=== PATIENT | female | born 1940 | race Caucasian/White ===

== ENCOUNTER → 2018-01-06 13:18 | Outpatient (CLI) | payer MEDICARE, SELFPAY ==
--- NOTE | 2018-01-06 13:22 | HPBI_ITS ---
MAMMOGRAPHY - BILATERAL SCREENING REASON FOR EXAM: Female, 77 years old. Routine annual screening examination. PERTINENT HISTORY: Non-contributory. TECHNIQUE: Digital bilateral breast emanuel (3D mammographic acquisition) in the CC and MLO projections. 2-D mediolateral oblique (MLO) and craniocaudad (CC) views of both breasts were obtained. CAD: Full Field Digital Mammography with Computer Added Detection was performed. COMPARISON: Comparison is made with prior study dated November 12, 2016 and April 04, 2015. FINDINGS: Breast Composition: There are scattered areas of fibroglandular density. There are no dominant masses or suspicious calcifications. Stable bilateral benign-appearing axillary lymph nodes. Stable bilateral calcified breast nodules with fibroadenomas. No other significant abnormalities are identified. There has been no significant change since the prior study. HPBI/SCREENING MAMM (CAD), BILAT IMPRESSION: Stable bilateral screening mammogram. Yearly follow-up mammogram recommended. (A) ASSESSMENT CATEGORY: BIRADS Category 2: Benign. A letter regarding these results will be sent to the patient by the facility within 30 days. Approximately 10% of breast cancers are not detected by mammography. A normal mammogram should not delay biopsy of a clinically suspicious abnormality. [id number] Electronically Signed: Jonny Martínez MD at 15:14 EST Tel [phone], Service support ,
== END ==
PROVIDERS: Family Provider Internal Medicine; PCP Internal Medicine; Visit Provider Internal Medicine
DX: Z12.31 Encounter for screening mammogram for malignant neoplasm of breast (principal)
CPT/HCPCS: 77063; 77067

== ENCOUNTER 2018-11-12 06:46 | Day surgery (SDC) | payer MEDICARE, SELFPAY ==
[2018-11-12] VITALS (8 sets, daily range): BP systolic 81–124; BP diastolic 37–79; PULSE 70–81; RESP 16; TEMP 36–36.6; O2SAT 90–95; BMI 36.4
[2018-11-12 07:25] LABS: Bedside Glucose 112 mg/dL (70-110)
--- NOTE | 2018-11-12 08:15 | DCINST_ITS ---
Discharge Diet: No Restrictions Discharge Activity: May not drive while taking narcotic pain medications., May Shower May resume sexual activity in: No Restrictions Call your doctor if you observe: Fever of 101 or Higher, Inability to urinate, Inability to have a bowel movement, Shortness of breath, Chest pain, Calf discomfort, Uncontrolled pain Allergies/Adverse Reactions: Allergies chlorpromazine [From Thorazine] Adverse Reaction (Verified 11/09/18 10:39) Itching lisinopril Adverse Reaction (Verified 11/09/18 10:39) COUGH prochlorperazine [From Compazine] Adverse Reaction (Verified 11/09/18 10:39) Itching Medications to take at Discharge Amlodipine [Norvasc] 10 mg PO DAILY 11/09/18 Aspirin E.C. [Ecotrin] 81 mg PO DAILY@0800 11/09/18 Atorvastatin Calcium [Lipitor] 40 mg PO QHS 11/09/18 Calcium (Elemental) [Os-Henrique 500] 500 mg PO DAILY@0800 11/09/18 Carvedilol [Coreg ([place])] 25 mg PO BID 11/09/18 Exenatide Microspheres [Bydureon Pen] 2 mg SQ SA 11/09/18 Fesoterodine Fumarate [Toviaz] 4 mg PO DAILY 11/09/18 Losartan Potassium [Cozaar] 100 mg PO QHS 11/09/18 Multivitamins,Therapeutic [Multivitamin] 1 tablet PO DAILY 11/09/18 Spironolactone [Aldactone] 25 mg PO DAILY 11/09/18 Cephalexin [Keflex] 500 mg PO Q12 3 Days #6 cap 11/12/18 Oxycodone HCl/Acetaminophen [Percocet 5/325] 1 - 2 tab PO Q6H PRN PRN 7 Days #30 tab 11/12/18 The following prescriptions were given: Oxycodone HCl/Acetaminophen [Percocet 5/325] 1 - 2 tab PO Q6H PRN PRN 7 Days #30 tab PRN Reason: Pain Cephalexin [Keflex] 500 mg PO Q12 3 Days #6 cap Primary Care Physician: Halle New MD [Primary Care Provider] - Test Results: Test results from this visit will be discussed in further detail at your follow- up appointment, if applicable. Please Follow Up With: Maria R Henry MD When: 2-3 weeks with EVELIN, call office for appt Proposed Discharge Date: 11/12/18
[2018-11-12] MEDS: Cefazolin 2 GM in 0.9% Normal Saline 100 ML IV (08:44)
--- NOTE | 2018-11-12 09:52 | OP.PN_ITS ---
Immediate Post-Op Note Date of Procedure: 11/12/18 Primary Surgeon/Physician: Maria R Henry MD life enrichment assistant: Maria R Henry Pre-Operative Diagnosis: left renal calculus Post-Operative Diagnosis: same Surgery/Procedure Performed:: left extracorporeal shockwave lithotripsy Description of Surgical Findings:: no complications, stone appears well fragmented Estimated Blood Loss: 2cc Specimen's removed: none Type of Anesthesia:: General - Admit VTE Documentation VTE Present on Admission: Yes VTE Mechan Device Prophylaxis: SCD's VTE Pharm Prophylaxis ordered?: No Reason prophylaxis not ordered:: Treatment Not Indicated
--- NOTE | 2018-11-12 09:52 | PCM.OPRPT ---
Problem List (1) Renal calculus, left Status: Acute Report of Operation Date of Procedure: 11/12/18 Pre-Operative Diagnosis: left renal calculus Post-Operative Diagnosis: same Surgery/Procedure Performed:: left extracorporeal shockwave lithotripsy Description of Surgical Findings:: no complications, stone appears well fragmented labor and employment paralegal: Maria R Henry Type of Anesthesia:: General Specimen's removed: none Estimated Blood Loss (mL): 2cc Description of Procedure: The patient is a 78-year-old female was found to have a left renal calculus as a source of microhematuria. After discussing all the risks benefits and alternatives she agreed to proceed with shockwave lithotripsy as treatment for her stone. The patient was taken to the operating room and placed in a supine position on the operating room table. All dependent portions of her body were appropriately padded. Anesthesia monitored the head, neck, airway, IV access and vital signs throughout the case. Once anesthesia was appropriately administered the left renal calculus was identified with fluoroscopy. It was appropriately aligned with a lithotripter and 3000 shocks were applied to this area. The stone appeared to be well fragmented at the conclusion of the case. There were no complications during this procedure. Patient was awakened and taken to the recovery room in good condition. Grafts/Implants Used: none - Complications none - Admit VTE Documentation VTE Present on Admission: Yes VTE Mechan Device Prophylaxis: SCD's VTE Pharm Prophylaxis ordered?: No Reason prophylaxis not ordered:: Treatment Not Indicated
[2018-11-12 10:11] LABS: Bedside Glucose 88 mg/dL (70-110)
--- NOTE | 2018-12-24 10:02 | PCM.HP.STD ---
Problem List (1) Renal calculus, left Status: Acute History of Present Illness Date of Admission: 11/15/18 Chief Complaint: left renal calculus identified on imaging The patient is a 78 year old F seen in the office and on evaluation found to have left renal stone. No active ureteral colic, fever, chills, nausea or vomiting. Past Medical History Allergies chlorpromazine [From Thorazine] Adverse Reaction (Verified 11/09/18 10:39) Itching lisinopril Adverse Reaction (Verified 11/09/18 10:39) COUGH prochlorperazine [From Compazine] Adverse Reaction (Verified 11/09/18 10:39) Itching Home Medications: Ambulatory Orders Medication Instructions Recorded Amlodipine [Norvasc] 10 mg PO DAILY 11/09/18 Aspirin E.C. [Ecotrin] 81 mg PO DAILY@0800 11/09/18 Atorvastatin Calcium [Lipitor] 40 mg PO QHS 11/09/18 Calcium (Elemental) [Os-Henrique 500] 500 mg PO DAILY@0800 11/09/18 Carvedilol [Coreg ([place])] 25 mg PO BID 11/09/18 Exenatide Microspheres [Bydureon 2 mg SQ SA 11/09/18 Pen] Fesoterodine Fumarate [Toviaz] 4 mg PO DAILY 11/09/18 Losartan Potassium [Cozaar] 100 mg PO QHS 11/09/18 Multivitamins,Therapeutic 1 tablet PO DAILY 11/09/18 [Multivitamin] Spironolactone [Aldactone] 25 mg PO DAILY 11/09/18 Smoking Status: Former smoker Tobacco Use: Non-smoker Review of Systems Constitutional: Denies: Anorexia, Fever, Weight Change Eyes: Denies: Vision Change HEENT: Denies: Head Aches Cardiovascular: Denies: Chest Pain Respiratory: Denies: Cough, Shortness of Breath Gastrointestinal: Denies: Abdominal Pain, Nausea, Vomiting Genitourinary: Denies: Dysuria, Hematuria Gynecological: Denies: Sexual concerns Musculoskeletal: Denies: Muscle pain Skin: Denies: Rash Neurological: Denies: Difficulty swallowing, Numbness Endocrine: Denies: Change in Body Habitus Hematologic/ Lymphatic: Denies: Easy Bruising VTE Information - Inpt Only VTE Present on Admission: Yes VTE Mechan Device Prophylaxis: SCD's VTE Pharm Prophylaxis ordered?: No Reason prophylaxis not ordered:: Treatment Not Indicated - Physical Exam General: Alert, Oriented x3, Cooperative, No apparent distress HEENT: Atraumatic, Normocephalic Oral: Moist Mucosa Neck: Supple, Trachea Midline Lungs: Clear to auscultation, Normal air movement Cardiovascular: Regular rate, Regular Rhythm Abdomen: Soft, Non Tender, Non-Distended Extremities: Tenderness Skin: No rashes Musculoskeletal: No Muscle Wasting Neurological: Cranial nerves II-XII grossly intact, Neuro grossly intact Psych/Mental Status: Normal Affect Vital Signs Temp Pulse Resp BP Pulse Ox 97.1 F L 74 16 98/48 L 91 11/12/18 11:05 11/12/18 11:05 11/12/18 11:05 11/12/18 11:05 11/12/18 11:05 Oxygen Flow Rate (L/min) 2 Oxygen Delivery Method Room Air Weight: 81.9 kg Body Mass Index (BMI) 36.4 Assessment/Plan All Active Problems Renal calculus, left (Acute) left renal extra corporeal shockwave lithotripsy. informed consent obtained.
--- OUTSIDE RECORDS SUMMARY | 2018-12-28 18:34 | XMS RPT_ITS | Continuity of Care Document ---
:1940 Author Organization [facility] Address [address] [facility] [address] [place] [address] Phone Care Team Providers Name Role Phone Shaq VAUGHAN, Halle Horta Unavailable Chapincito VAUGHAN, Dr. Lema Unavailable Maria R Henry Unavailable Osmany Kessler DPM Unavailable Sen West Unavailable Dr. Lamonte Oconnor Unavailable MARY KAY Darnell Unavailable Unavailable Unavailable Unavailable Problems Name Dates Details BMI 38.0-38.9,adult (Z68.38, V85.38) Status: Active Bursitis of left hip, unspecified bursa (M70.72, 726.5) Comments: exercises and stretches given. Status: Active Cardiomyopathy, dilated (I42.0, 425.4) 1995 Comments: talka bout adding larginine. will get pain if walk up steep grade. will get new cardio. with retirementof dopirak.MUGA scan EF 40% 1-17. 5-18 37% no CHF signs and symptoms ever. cath good Status: Active Chest discomfort (R07.89, 786.59) Status: Active Chronic back pain, unspecified back location, unspecified back pain laterality (M54.9, 724.5) Comments: herniated disc after falling in 50's. right now acting up because moved furniture. taking aleve every am. told can use dose of motrin or aleve bid. if sob or ankle swelling please stop and call. 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 did PT and maintaining now with exercises. stable and if twinge do exercises still. Status: Active Diabetes mellitus type II, controlled, with no complications (Renamed from Controlled type 2 diabetes mellitus without complication) (E11.9, 250.00) Comments: bydureon not have the weightloss anymore and more appetite. was not exercising when sick. Status: Active Encounter for annual general medical examination with abnormal findings in adult (Z00.01, V70.0) Comments: 03-09-18 AMP [facility] 2007 will do this summer with Dr. santoyo in [place] she will set up mammogram 01-06-18, BD 2015, eye exam was with Dr. Gale degroot, 2017, all immunizations are up to date, hx. total hysterectomy/BSO, whisper test WNL, PHQ-9=9, (mild) 6CIT test=26/28 [facility] 3 days a week and walk daily Status: Active Essential hypertension (I10, 401.9) Comments: stable Status: Active Family history of melanoma (Z80.8, V16.8) Comments: fair freckle skin and sheis red head. saw derm and willc ontinue regular Status: Active Fatigue (R53.83, 780.79) Comments: MMA up ? causing right now ? mikayla bradley. after flu also check heart EF Status: Active History of nephrolithiasis (Z87.442, V13.01) 2002 Comments: see vicente not had reoccur Status: Active Ingrown toenail (L60.0, 703.0) Status: Active Lumbago (M54.5, 724.2) Status: Active Osteopenia (M85.80, 733.90) Comments: 12-16 BD mid level osteopenia in hips. 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 is on. Status: Active Medications Name Dates Details Aldactone 25 MG Oral Tablet 1 (one) Tablet Tablet qd for 0 days Quantity: 30 {Tablet} Refills: 0 Ordered:30-Mar-2017 Halle New MD, MD, Dana M Start : 30-Mar-2017 Active AmLODIPine Besylate 10 MG Oral Tablet daily (10 MG) Active Atorvastatin Calcium 10 MG Oral Tablet 1 (one) Tablet qd for 0 days Quantity: 30 {Tablet} Refills: 0 Ordered:16-Jul-2018 Halle New MD, MD, Dana M Start : 16-Jul-2018 Active Bydureon 2 MG Subcutaneous Pen-injector 2 (two) milligram once weekly SC for 0 days Quantity: 12 {Pre-filled_Pen_Syringe} Refills: 5 Ordered:23-Aug-2018 Halle New MD, MD, Dana M Start : 23-Aug-2018 Active Calcium 600/Vitamin D 600-400 MG-UNIT Oral Tablet Chewable 1 (one) Tablet Chewable Tablet Chewable in am for 0 days Quantity: 30 {Tablet} Refills: 0 Ordered:30-Mar-2017 MARY KAY Darnell Start : 16-Dec-2016 Active Coreg 25 MG Oral Tablet 1 (one) Tablet Tablet qd for 0 days Quantity: 30 {Tablet} Refills: 0 Ordered:30-Mar-2017 Halle New MD, MD, Dana M Start : 30-Mar-2017 Active Losartan Potassium 100 MG Oral Tablet 1 (one) Tablet Tablet daily for 0 days Quantity: 30 {Tablet} Refills: 0 Ordered:30-Mar-2017 Halle New MD, MD, Dana M Start : 30-Mar-2017 Active Myrbetriq 50 MG Oral Tablet Extended Release 24 Hour 1 (one) Tablet in am for 0 days Quantity: 30 {Tablet} Refills: 0 Ordered:11-Oct-2018 Halle New MD, MD, Dana M Start : 11-Oct-2018 Active Aspirin Low Dose 81 MG Oral Tablet Chewable 1 (one) Tablet Chewable Tablet Chewable qd for 30 days Quantity: 30 {Tablet} Refills: 0 Ordered:18-Dec-2016 Halle New MD, MD, Dana M Start : 03-Oct-2016 End : 02-Nov-2016 Inactive Cheratussin AC 100-10 MG/5ML Oral Solution 1 (one) Milliliter Milliliter 1-2 tsp every 8 hours prn for 0 days Quantity: 60 {Milliliter} Refills: 0 Ordered:06-May-2018 Millicent Childs Start : 28-Dec-2017 End : 06-May-2018 Inactive Comments:sixty Cipro 500 MG Oral Tablet 1 (one) Tablet bid for 0 days Quantity: 14 {Tablet} Refills: 0 Ordered:19-Oct-2018 MARY KAY Darnell Start : 11-Oct-2018 End : 19-Oct-2018 Inactive Ciprofloxacin HCl 500 MG Oral Tablet 1 (one) Tablet bid for 0 days Quantity: 20 {Tablet} Refills: 0 Ordered:12-Nov-2016 Patrick Dowd Start : 20-Oct-2016 End : 12-Nov-2016 Inactive Cozaar 100 MG Oral Tablet 1 (one) Tablet Tablet qd for 30 days Quantity: 30 {Tablet} Refills: 0 Ordered:12-Nov-2016 Halle New MD, MD, Dana M Start : 03-Oct-2016 End : 02-Nov-2016 Inactive Estrace 0.1 MG/GM Vaginal Cream 1 (one) Cream Cream apply to vagina 1 gm and to urethra twice weekly for 0 days Quantity: 1 {Each} Refills: 5 Ordered:06-May-2018 Halle New MD, MD, Dana M Start : 03-Oct-2016 End : 06-May-2018 Inactive Flonase Allergy Relief 50 MCG/ACT Nasal Suspension 1 (one) Suspension Suspension 2 sprays each nostril daily for 0 days Quantity: 1 {Each} Refills: 0 Ordered:06-May-2018 Millicent Childs Start : 07-May-2017 End : 06-May-2018 Inactive Meclizine HCl 25 MG Oral Tablet 1 (one) Tablet Tablet every 6 horus prn for 0 days Quantity: 20 {Tablet} Refills: 0 Ordered:06-May-2018 Millicent Childs Start : 07-May-2017 End : 06-May-2018 Inactive Medrol 4 MG Oral Tablet Therapy Pack 1 (one) Milligram uad for 0 days Quantity: 1 {Package} Refills: 0 Ordered:11-Oct-2018 MARY KAY Darnell Start : 22-Jul-2018 End : 11-Oct-2018 Inactive Tamiflu 75 MG Oral Capsule 1 (one) Capsule Capsule bid for days for 0 days Quantity: 10 {Capsule} Refills: 0 Ordered:06-May-2018 Millicent Childs Start : 28-Dec-2017 End : 06-May-2018 Inactive TraMADol HCl 50 MG Oral Tablet 1 (one) Tablet every 6 hours prn for 0 days Quantity: 20 {Tablet} Refills: 0 Ordered:19-Oct-2018 MARY KAY Darnell Start : 22-Jul-2018 End : 19-Oct-2018 Inactive Comments:twenty Oxybutynin Chloride ER 10 MG Oral Tablet Extended Release 24 Hour 1 (one) Tablet ER 24HR bid for 30 days Quantity: 60 {Tablet} Refills: 4 Ordered:17-Oct-2016 Shaq VAUGHAN, Halle Olivares MD, Halle Horta Start : 17-Oct-2016 End : 17-Oct-2016 Discontinued Allergies and Adverse Reactions Name Dates Details LARISSA Inhibitors (Allergy) Reaction: Cough Status: Active Compazine *ANTIPSYCHOTICS/ANTIMANIC AGENTS* (Allergy) Reaction: Rash Status: Active MetFORMIN HCl *ANTIDIABETICS* (Allergy) Reaction: Diarrhea Status: Active Thorazine *ANTIPSYCHOTICS/ANTIMANIC AGENTS* (Allergy) Reaction: Rash Status: Active Past Medical History Name Dates Details BMI 35.0-35.9,adult (Z68.35, V85.35) Status: Inactive as of 16-Dec-2016 BMI 37.0-37.9, adult (Z68.37, V85.37) Comments: 37.83 Status: Resolved as of 25-Jun-2018 BMI 38.0-38.9,adult (Z68.38, V85.38) Comments: doing weight watchers. talk about logging and portion control. talk about victoza. dtr josé. goal weight 130 last there 20 years. after heart issue and more sedentary. Status: Inactive as of 30-Mar-2017 Cardiomyopathy Status: Inactive as of 03-Dec-2016 Diabetes Mellitus Status: Inactive as of 03-Dec-2016 Encounter for screening mammogram for breast cancer (Renamed from Encounter for screening mammogram for malignant neoplasm of breast) (Z12.31, V76.12) Status: Resolved as of 13-Mar-2018 Flu-like symptoms (R68.89, 780.99) Status: Resolved as of 25-Jun-2018 History of tobacco abuse (Z87.891, V15.82) Status: Resolved as of 09-Mar-2018 Influenza (J11.1, 487.1) Comments: willtreat with tamiflu. use otc. told if worsen signs and symptoms Status: Resolved as of 13-Mar-2018 Leukocytosis, unspecified type (D72.829, 288.60) Comments: she was sick with URI at time labs recheck Status: Resolved as of 13-Mar-2018 Neck pain (M54.2, 723.1) Comments: OA in past seen DO and adjust. use heat as need no pain in arms now. Status: Inactive as of 30-Jul-2017 Nocturia (R35.1, 788.43) Comments: and urge incontinence Status: Inactive as of 30-Mar-2017 Nonsmoker (Z78.9, V49.89) Status: Resolved as of 16-Jul-2018 Postmenopausal (Renamed from Postmenopausal status) (Z78.0, V49.81) Status: Resolved as of 05-Nov-2017 Right wrist pain (M25.531, 719.43) Comments: in thumb tendon. hit with wheelchair few months ago not want to xray yet. ice capscian and thumb stabilizer. Status: Resolved as of 05-Nov-2017 Unspecified Diagnosis Status: Inactive as of 03-Dec-2016 Unsteady gait (R26.81, 781.2) Comments: patient not hink bad enough want to go to PT is exercising. not sound like NPH. Parkinsons ? some diabetic neuropathy. ? inner. on ? related to myrbetriq stillsome when first get up in am and get up from chair after sit awhile. goes slow. exercising. bonine make too tired did help some. using flonase. exercises for inner ear help recommendto do few tiems a week. Status: Resolved as of 05-Nov-2017 UTI (urinary tract infection) (N39.0, 599.0) Comments: kidney stone 10 years ago Status: Inactive as of 03-Dec-2016 Vertigo (R42, 780.4) Comments: thinkpositioinal ? related to allergies willstart flonase and use boninine handout given and willdo exercises went over red flags to callif issue. willcall her in few days to see how doing Status: Resolved as of 05-Nov-2017 Procedures Procedure Dates Details Annual Eye Exam Completed Comments: Normal. dr beasley 04/03/14May 2016 Bone Density Study Completed Comments: Normal. 07/28/2013, 11-12-2016 Colonoscopy, Screening Completed Comments: Normal. Dr. Ramachandran 2007 ERCP and gallstone removal no had Completed cholecystectomy spring Hysterectomy; Total Completed Comments: BSO, for heavy bleeding Left heel Completed Comments: spur into the tendons Left Knee Completed Comments: arthroscopic repair Mammogram, Screening Completed Comments: sebaceous cyst removal from arm and scalp Completed Tumors Completed Comments: removed from around the gall bladder, and migrate tumor from the placenta. not cancer Date Value Details 06-Jan-2018 SCREENING MAMM (CAD), BILAT Result: Comments: See Note; NOTES: [facility] Imaging Services [address] [place] [address] SCREENING MAMM (CAD), BILAT MR#: [id number] Acct: [id number] Name: SIMRAN WALDROP Rep #: [id number] : 1940 F 77 From: Jonny Martínez MD PCP: Halle New MD Status: REG CLI Study: SCREENING MAMM (CAD), BILAT Date of Exam: 01/06/18 Exam# [id number] Ordering Dr: Halle New MD M AMMOGRAPHY - BILATERAL SCREENING REASON FOR EXAM: Female, 77 years old. Routine annual screening examination. PERTINENT HISTORY: Non-contributory. TECHNIQUE: Digital bilateral breast emanuel (3D mammogr aphic acquisition) in the CC and MLO projections. 2-D mediolateral oblique (MLO) and craniocaudad (CC) views of both breasts were obtained. CAD: Full Field Digital Mammography with Computer Added Detect ion was performed. COMPARISON: Comparison is made with prior study dated November 12, 2016 and April 04, 2015. FINDINGS: Breast Composition: There are scattered areas of fibroglandular density. There are no dominant masses or suspicious calcifications. Stable bilateral benign-appearing axillary lymph nodes. Stable bilateral calcified breast nodules with fibroadenoma s. No other significant abnormalities are identified. There has been no significant change since the prior study. HPBI/SCREENING MAMM (CAD), BRIGIDA AT IMPRESSION: Stable bilateral screening mammogram. Yearly follow-up mammogram recommended. (A) ASSESSMENT CATEGORY: BIRADS Category 2: Benign. A letter regarding these results will be sent to the patient by the facility within 30 days. Approximately 10% of breast cancers are not detected by mammography. A normal mammogram should not delay biopsy of a clinically suspicious abnormality. [id number] Electronically Signed: Jonny Martínez MD at 15:14 EST Tel [phone], Service support , CC: Halle eNw MD Paint Laboratory Technician: Signed 17-Feb-2017 OT D/C Summary Result: Comments: See Note; NOTES: [facility] [address] [place] [address]. [address] [place], [place] [address] Fax REHABILITATION SERVICES DIS CHARGE SUMMARY MR#: [id number] Acct: [id number] Name: SIMRAN WALDROP Rep #: [id number] : 1940 76 From: Fior Loving Referring DrEdin: Sen West DO Status: REG RCR Eval Date: Discharge Date: HP - OT D/C Summary It has been my pleasure to treat SIMRAN WALDROP under orders from Sen West DO, for the diagnosis of R de quervains; Dorsal wrist tendonitis. Hx of crust injury 4 mon ths ago. for a total of 9 visit(s). Please see the following information for a summary of their discharge status. - Objective Objective/Function: Pt. completed strength assessment. Pt. R receiver stocker 46, L 4 7; lateral R 9, L 10; 3 Jaw R 6, L 7; Tip R 5; L 5. Pt. noted today pain has been reduced to 0/10. - Goals Patient Goals: Regain Mobility, Regain Strength, Decrease Pain, Use Hand/Wrist/Arm Normally Ag ain, Sleep Better, Increase ROM - Plan Plan: continue POC. - D/C Information If there are questions or concerns regarding this patient's occupational therapy, please fell free to call me at . Thank you for the referral of this patient. Sincerely, Fior Loving <Electronically signed by Fior Loving > 02/17/17 1449 CC: Halle New MD; Sen West DO KMB Signed 09-Jan-2017 OT General Evaluation Result: Comments: See Note; NOTES: [facility] [address] [place] [address]. [address] [place] [address] Fax REHABILITATION SERVICES INI TIAL EVALUATION MR#: [id number] Acct: [id number] Name: SIMRAN WALDROP Rep #: [id number] : 1940 76 From: Fior Loving Referring DrEdin: Sen West DO Status: REG RCR Insurance: [employer] R Eval Date: Patient's Visit Information SIMRAN WALDROP is a 76 year old F, referred to Occupational Therapy by Sen West DO,, with a diagnosis of R de quervains; Dorsal wrist tendonitis. Hx of crust injury 4 months ago.. Date of Evaluation: 01/08/17 Occupational Therapist: Fior Loving - Subjective Subjective: Pt. noted increased pain in R wrist. H/o crush injury 4 months ago. She n oted she dropped w/c on it and then was carryload upstairs in which she triped and hit it again. Since the inital injury wrist has remained sore. X-rays report no broken bones. - Pain Right Wrist 8 Pain Intensity Range: 9 - Objective Objective/Observation: Pt. has decreased ability to form composite fist secondary to OA. ROM and strength are WFL on B hands and wrist but pain is limiting Pt. to pa rticipate in ADL/IADls. - ROM Shoulder: WFL Elbow: WFL Forearm: R rad dev 25; ulnar dev 21 ; L Rad dev 37 ulnar dev 26 Wrist: R flex 70 ext 45; L flex 78 ext 36 CMC: R cmc 28; L 26 - Strength Shoulder : WFL Elbow: WFL Forearm: WFL Wrist: Decrease secondary to pain but WFL. Superintendent Institution: R 50 lbs L 48 lbs Lateral Pinch: R 12 L 11 Tripod Pinch: R 8 L 10 Tip-to-Tip Pinch: R 4 L 8 - Sensation Sensation Comments : Denies numbness or tingling and notes manipulating small objects is secondary to pain. - Rehabilitation General Assessment: Pt. has ROM and Strength WFL but is limited by significant pain. She noted Alieve, Ibuprofen dont do much to limit pain. She notes significant pain 8-9 pretty consistent and aggrevated by FM movements. Rehabilitation Potential: Good - Anticipated Interventions Anticipated Int erventions: A/AAROM/PROM, Strengthening, Modalities, Orthoses, Joint Protection/ Energy Conservation, Ergonomic Education, Fine Motor Coord/Giorgio, Neuro Reeducation, Caregiver Training, Home Program - Visit Plan Frequency: 2x /Week Duration: 4 Weeks General Plan: Pt. to completed OT services to provide pain relieving techniques to help decrease inflammation and pain in R wrist. TEXT: Thank you f or the opportunity to evaluate your patient. For Medicare and Medicare HMO plans, please review the plan of care and approve it. It will need to be FAXED BACK to us at [phone] for Medicare purpose s. Please let me know if there are questions or concerns regarding this plan of care. Physician Signature: Date: <Electronically signed by Fior Loving > 01/09/17 1539 CC: Halle New MD; eSn West DO KMB Signed For Medicare only, by signing this I certify the plan of care. Physicians Signature Date 16-Dec-2016 Wrist min 3 Views Result: Comments: See Note; NOTES: [facility] Imaging Services [address] [place] [address] [place] Wrist min 3 Views MR#: [id number] Acct: [id number] Name: SIMRAN WALDROP Rep #: [id number] : 1940 F 76 From: Rodney Peace MD PCP: Halle New MD Status: REG CLI Study: Wrist min 3 Views Date of Exam: 12/16/16 Exam# [id number] Ordering Dr: Halle New MD STUD Y: X-RAY - RIGHT WRIST REASON FOR EXAM: Female, 76 years old. Injury TECHNIQUE: view(s) of the wrist were obtained. COMPARISON: None. FINDINGS: Normal visualized distal radius and ulna. Normal radiocarpal articulation. Normal distal radioulnar articulation. Normal carpal bones. Normal carpal articulations. Normal carpometacarpal articulation of the thumb. Donna l second through fifth carpometacarpal articulations. Normal visualized metacarpal bones. The soft tissue structures are unremarkable. RAD/Wris t min 3 Views IMPRESSION: Normal x-ray examination of the wrist. Electronically Signed: Rodney Peace, at 23:42 EST Tel , Service support [phone], Fax CC: Halle New MD Paint Laboratory Technician: Signed 12-Nov-2016 Bilat Scrn Digital AND CAD Result: Comments: See Note; NOTES: [facility] Imaging Services [address] [place] [address] [place] 4d Bilat Scrn Digital AND CAD MR#: [id number] Acct: [id number] Name: SIMRAN WALDROP Rep #: [id number] : 1940 F 76 From: Jonny Martínez MD PCP: Halle New MD Status: REG CLI Study: Bilat Scrn Digital AND CAD Date of Exam: 11/12/16 Exam# [id number] Ordering Dr: Halle New MD MAMMOGRAPHY - BILATERAL SCREENING REASON FOR EXAM: Female, 76 years old. Routine annual screening examination. PERTINENT HISTORY: Non- contributory. TECHNIQUE: Digital bilateral breast emanuel (3D mammographic acquisition) in the CC and MLO projections. 2-D mediolateral oblique (MLO) and craniocaudad (CC) views of both breasts were obtained. CAD: Full Field Digital Mammography with Computer A dded Detection was performed. COMPARISON: Comparison is made with prior outside examination dated April 04, 2015. FINDINGS: Breast Composition: There are scattered are as of fibroglandular density. There are no dominant masses or suspicious calcifications. Small benign appearing axillary lymph nodes are seen bilaterally. Stable bilateral densely calcified nodules in keeping with a calcified fibroadenomas. No other significant abnormalities are identified. There has been no significant change since the prior study. ORDER #: [id number] HPBI/Bilat Scrn Digital AND CAD IMPRESSION: Stable bilateral screening mammogram. Yearly follow-up mammogram recommended. (A) ASSESSMENT CATEGORY: BIRADS Cat egory 2: Benign. A letter regarding these results will be sent to the patient by the facility within 30 days. Approximately 10% of breast cancers are not detected by mammography. A normal mammogram noemí uld not delay biopsy of a clinically suspicious abnormality. [id number] Electronically Signed: Jonny Martínez MD at 13:52 EST Tel [phone], Service support [phone], CC: Halle New MD Paint Laboratory Technician: Signed 12-Nov-2016 Dexa Bone Density/Append Skel Result: Comments: See Note; NOTES: [facility] Imaging Services [address] [place] [address] [place] 4d Dexa Bone Density/Append Skel MR#: [id number] Acct: [id number] Name: CHUCK WALDROP Rep #: [id number] : 1940 F 76 From: Jonny Martínez MD PCP: Halle New MD Status: REG CLI Study: Dexa Bone Density/Append Skel Date of Exam: 11/12/16 Exam# [id number] Ordering Dr: Halle Terry MD STUDY: DUAL ENERGY X-RAY ABSORPTIOMETRY / DXA REASON FOR EXAM: Female, 76 years old. The patient is postmenopausal. Loss of height. TECHNIQUE: Bone Mineral Density (BMD) measurements o f lumbar spine and bilateral hips were obtained. COMPARISON: None. FINDINGS: Lumbar Spine (L1-L4): g/cm2 (1.103) / T-score (-0.5) / Z-score (1.2) Findings are sugg estive of normal bone density with a low fracture risk. Left Femur Total: g/cm2 (0.987) / T-score (-0.2) / Z-score (1.6) Left Femoral Neck: g/cm2 (0.817) / T- score (-1.6) / Z-score (0.4) Right Femur To kisha: g/cm2 (0.958) / T-score (-0.4) / Z-score (1.4) Right Femoral Neck: g/cm2 (0.793) / T-score (-1.8) / Z-score (0.2) HPBD/Dexa Bone Density/Ap pend Skel IMPRESSION: The patient is considered osteopenic at the level of the femoral neck as outlined below according to World Johnnie Organization (WHO) criteria with a moderate fracture risk. Reference Information: The T-score is the number of standard deviations above or below the standard which is normal for young adults at their peak bone mineral density. The World Health Organization (WHO) interprets the T-scores as follows: Above -1 Normal bone density Between -1 and -2.5 Osteopenia Equal to / or below -2.5 Osteoporosis As a practical clinical guideline, osteopenia may be graded as follows: Mild -1 through -1.5 Moderate -1.6 through -2.0 Severe -2.1 through -2.4 The Z-score is the number of standard deviations above or below age-matched controls. A Z- score of less than -1.5 would be considered abnormal. References: 1. NIH Osteoporosis and Related Bone Diseases http://www.osteo.org 2. International Society for Clinical Densitometry http://www.iscd.o rg 3. National Osteoporosis Foundation http://www.nof.org Electronically Signed: Jonny Martínez MD at 12:53 EST Tel [phone], Service support [phone], CC : Halle New MD Paint Laboratory Technician: Signed Family History Unknown Family Member Name Dates Details Brother 1 Comments: melanoma Status: Active Daughter 1 Comments: older fur mixer in [place] local Status: Active Daughter 2 Comments: head teacher [place] Status: Active Father Comments: mid 70's old age. healthy up until Status: Active Mother Comments: mid 70's of pulmonary distress, heavy smoker, CVA in 70's Status: Active Social History Name Dates Details Alcohol Use: Occasional alcohol use. Comments: etoh with dinner restaurant. Status: Active Caffeine Use Comments: 1-2 qd Status: Active Current Work/Study Status Comments: retired Status: Active Exercise History Comments: three [facility] a week at health center. Status: Active Living Situation Comments: 08-15 of neurological disease and bipolar at end. live alone now. Status: Active No Drug Use Status: Active Non Smoker/No Tobacco Use Comments: former Status: Active Tobacco Use: Former smoker. Comments: quit in 30's smoke for 10 years Status: Active Smoking Status Name Dates Details Former smoker Vital Signs Date Test Result Details :24 Temperature 97.8 f Comments: Method: Temporal Pulse 90 /min Comments: Pattern: Regular Respiration Rate 20 /min Comments: Pattern: Unlabored O2 SAT 95 % Comments: Room air BP Systolic 120 mm[Hg] Comments: Patient Position: Sitting BP Diastolic 80 mm[Hg] Comments: Patient Position: Sitting Weight 182 lb Height 58 in Body Mass Index Calculated 38.04 kg/m2 Body Surface Area Calculated 1.75 m2 09-Fsm-304982:47 Temperature 97.6 f Comments: Method: Temporal Pulse 80 /min Comments: Pattern: Regular Respiration Rate 20 /min Comments: Pattern: Unlabored O2 SAT 95 % Comments: Room air BP Systolic 120 mm[Hg] Comments: Patient Position: Sitting; Cuff Location: Left Arm; Cuff Size: Standard BP Diastolic 70 mm[Hg] Comments: Patient Position: Sitting; Cuff Location: Left Arm; Cuff Size: Standard Weight 182 lb Height 58 in Body Mass Index Calculated 38.04 kg/m2 Body Surface Area Calculated 1.75 m2 :13 Temperature 97.2 f Comments: Method: Temporal Pulse 76 /min Comments: Pattern: Regular Respiration Rate 20 /min Comments: Pattern: Unlabored O2 SAT 98 % Comments: Room air BP Systolic 110 mm[Hg] Comments: Patient Position: Sitting; Cuff Location: Left Arm; Cuff Size: Standard BP Diastolic 70 mm[Hg] Comments: Patient Position: Sitting; Cuff Location: Left Arm; Cuff Size: Standard Weight 182 lb Height 58 in Body Mass Index Calculated 38.04 kg/m2 Body Surface Area Calculated 1.75 m2 89-Qny-095141:39 Weight 182 lb Height 58 in Body Mass Index Calculated 38.04 kg/m2 Body Surface Area Calculated 1.75 m2 :18 Temperature 98.4 f Comments: Method: Temporal Pulse 75 /min Comments: Pattern: Regular Respiration Rate 16 /min Comments: Pattern: Unlabored O2 SAT 98 % Comments: Room air BP Systolic 104 mm[Hg] Comments: Patient Position: Sitting; Cuff Location: Left Arm; Cuff Size: Standard BP Diastolic 70 mm[Hg] Comments: Patient Position: Sitting; Cuff Location: Left Arm; Cuff Size: Standard Weight 182 lb Height 58 in Body Mass Index Calculated 38.04 kg/m2 Body Surface Area Calculated 1.75 m2 :41 Temperature 97 f Comments: Method: Temporal Pulse 80 /min Comments: Pattern: Regular Respiration Rate 20 /min Comments: Pattern: Unlabored O2 SAT 95 % Comments: Room air BP Systolic 110 mm[Hg] Comments: Patient Position: Sitting; Cuff Location: Left Arm; Cuff Size: Standard BP Diastolic 70 mm[Hg] Comments: Patient Position: Sitting; Cuff Location: Left Arm; Cuff Size: Standard Weight 183 lb Height 58 in Body Mass Index Calculated 38.25 kg/m2 Body Surface Area Calculated 1.75 m2 :39 Temperature 97.6 f Comments: Method: Temporal Pulse 88 /min Comments: Pattern: Regular Respiration Rate 20 /min Comments: Pattern: Unlabored O2 SAT 95 % Comments: Room air BP Systolic 108 mm[Hg] Comments: Patient Position: Sitting; Cuff Location: Left Arm; Cuff Size: Standard BP Diastolic 74 mm[Hg] Comments: Patient Position: Sitting; Cuff Location: Left Arm; Cuff Size: Standard Weight 181 lb Height 58 in Body Mass Index Calculated 37.83 kg/m2 Body Surface Area Calculated 1.75 m2 :55 Temperature 97.6 f Comments: Method: Temporal Pulse 86 /min Comments: Pattern: Regular Respiration Rate 20 /min Comments: Pattern: Unlabored O2 SAT 97 % Comments: Room air BP Systolic 110 mm[Hg] Comments: Patient Position: Sitting; Cuff Location: Left Arm; Cuff Size: Standard BP Diastolic 76 mm[Hg] Comments: Patient Position: Sitting; Cuff Location: Left Arm; Cuff Size: Standard Weight 181 lb Height 58 in Body Mass Index Calculated 37.83 kg/m2 Body Surface Area Calculated 1.75 m2 :44 Pulse 76 /min Comments: Pattern: Regular Respiration Rate 18 /min Comments: Pattern: Unlabored O2 SAT 96 % Comments: Room air BP Systolic 110 mm[Hg] Comments: Patient Position: Sitting; Cuff Location: Left Arm; Cuff Size: Large BP Diastolic 70 mm[Hg] Comments: Patient Position: Sitting; Cuff Location: Left Arm; Cuff Size: Large Weight 180 lb Height 58 in Body Mass Index Calculated 37.62 kg/m2 Body Surface Area Calculated 1.74 m2 :02 Temperature 97.6 f Comments: Method: Temporal Pulse 80 /min Comments: Pattern: Regular Respiration Rate 20 /min Comments: Pattern: Unlabored O2 SAT 95 % Comments: Room air BP Systolic 112 mm[Hg] Comments: Patient Position: Sitting; Cuff Location: Left Arm; Cuff Size: Standard BP Diastolic 72 mm[Hg] Comments: Patient Position: Sitting; Cuff Location: Left Arm; Cuff Size: Standard Weight 178 lb Height 58 in Body Mass Index Calculated 37.2 kg/m2 Body Surface Area Calculated 1.73 m2 :28 Temperature 97.6 f Comments: Method: Temporal Pulse 68 /min Comments: Pattern: Regular Respiration Rate 20 /min Comments: Pattern: Unlabored O2 SAT 97 % Comments: Room air BP Systolic 104 mm[Hg] Comments: Patient Position: Sitting; Cuff Location: Left Arm; Cuff Size: Standard BP Diastolic 60 mm[Hg] Comments: Patient Position: Sitting; Cuff Location: Left Arm; Cuff Size: Standard Weight 181 lb Height 58 in Body Mass Index Calculated 37.83 kg/m2 Body Surface Area Calculated 1.75 m2 :10 Temperature 98 f Pulse 87 /min Comments: Pattern: Regular Respiration Rate 16 /min Comments: Pattern: Unlabored O2 SAT 95 % Comments: Room air BP Systolic 108 mm[Hg] Comments: Patient Position: Sitting; Cuff Location: Left Arm; Cuff Size: Standard BP Diastolic 62 mm[Hg] Comments: Patient Position: Sitting; Cuff Location: Left Arm; Cuff Size: Standard Weight 188 lb Height 59 in Body Mass Index Calculated 37.97 kg/m2 Body Surface Area Calculated 1.8 m2 :48 Temperature 96.2 f Comments: Method: Tympanic Pulse 73 /min Comments: Pattern: Regular Respiration Rate 18 /min Comments: Pattern: Unlabored O2 SAT 93 % Comments: Room air BP Systolic 116 mm[Hg] Comments: Patient Position: Sitting; Cuff Location: Left Arm; Cuff Size: Standard BP Diastolic 62 mm[Hg] Comments: Patient Position: Sitting; Cuff Location: Left Arm; Cuff Size: Standard Weight 190 lb Height 59 in Body Mass Index Calculated 38.37 kg/m2 Body Surface Area Calculated 1.8 m2 :23 Temperature 95 f Comments: Method: Oral Pulse 74 /min Comments: Pattern: Regular Respiration Rate 16 /min BP Systolic 122 mm[Hg] Comments: Patient Position: Sitting BP Diastolic 78 mm[Hg] Comments: Patient Position: Sitting Weight 192 lb Height 59 in Body Mass Index Calculated 38.78 kg/m2 Body Surface Area Calculated 1.81 m2 Results Date Description Value Details :00 URINE LIANET CULTURE-IDENTIFICATN Comments: PATIENT NOT FASTINGPERFORMED BY: [facility] Oeyvkf9171 [facility] [id number] Information: SRC: ([id number]) Antimicrobial MIHEAD (Normal) Comments: S = Susceptible; I = Intermediate; R = Resistant P = Positive; N = Negative MICS are expressed in micrograms per mL Antibiotic RSLT#1 RSLT#2 RS Susceptibility LT#3 RSLT#4Amoxicillin/Clavulanic Acid SAmpicillin RCefepime SCeftriaxone SCefuroxime SCiprofloxacin SErtapenem SGentamicin SImipenem SLevofloxacin SMeropenem SNitrofurantoin SPipera cillin/Tazobactam STetracycline STobramycin STrimethoprim/Sulfa S; ADDENDA: treated with Cipro and susept. Result 1 Klebsiella Comments: 50,000-100,000 colony forming units per mLCefazolin <=4 ug/mLCefazolin with an ANTHONY <=16 predicts susceptibility to the oral agentscefaclor, cefdinir, cefpodoxime, cefprozil, cefuroxime, cephalexin pneumoniae ,and loracarbef when used for therapy of uncomplicated urinary tractinfections due to E. coli, Klebsiella pneumoniae, and Proteusmirabilis. (Abnormal) Urine Final report Culture,Comprehensive (Abnormal) 44-Luk-[id number]:28 Urinalysis, Office (87031) UA - LEUKOCYTE ESTERASE Large (Normal) UA - NITRITE Negative (Normal) URINE UROBILINGN HANY TIMED Normal mg/dL (Normal) UA - PROTEIN Negative mg/dL (Normal) UA - PH 5 (Abnormal) UA - BLOOD Negative (Normal) UA - SPECIFIC GRAVITY 1.030 (Abnormal) UA - KETONES Negative mg/dL (Normal) UA - BILIRUBIN Negative (Normal) UA - GLUCOSE Negative (Normal) 76-Ogz-260450:46 Methymalonic Acid, Serum Comments: PATIENT NOT FASTINGPERFORMED BY: [employer] [id number] BY: [employer]riv[employer] [facility] [id number] (83926) Methylmalonic Acid, Serum 165 nmol/L (Normal) Range: 0-378 Comments: This test was developed and its performance characteristicsdetermined by [employer] It has not been cleared or approvedby the Food and Drug Administration. 81-Fgj-549164:46 Vitamin B-12 Comments: PATIENT NOT FASTINGPERFORMED BY: Arrively[address] [id number] BY: ArrivelyMonmouth Medical CenterLdgwqd1459 [facility] [id number] (cyanocobalamin) (91399) Vitamin B12 472 pg/mL (Normal) Range: 232-1245 29-Jan-20189:29 CBC With Differential/Platelet Comments: PATIENT NOT FASTINGPERFORMED BY: Coding TechnologiesMonmouth Medical CenterLfmwvc9856 [facility] [id number] BY: Arrively[address] [id number] Information: nurse draw Immature Grans (Abs) 0.0 {x10E3/uL} (Normal) Range: 0.0-0.1 Immature Granulocytes 0 % (Normal) Baso (Absolute) 0.0 {x10E3/uL} (Normal) Range: 0.0-0.2 Eos (Absolute) 0.2 {x10E3/uL} (Normal) Range: 0.0-0.4 Monocytes(Absolute) 1.0 {x10E3/uL} (Abnormal) Range: 0.1-0.9 Lymphs (Absolute) 2.5 {x10E3/uL} (Normal) Range: 0.7-3.1 Neutrophils (Absolute) 4.8 {x10E3/uL} (Normal) Range: 1.4-7.0 Basos 1 % (Normal) Eos 2 % (Normal) Monocytes 12 % (Normal) Lymphs 29 % (Normal) Neutrophils 56 % (Normal) Platelets 287 {x10E3/uL} (Normal) Range: 150-379 RDW 14.0 % (Normal) Range: 12.3-15.4 MCHC 34.0 g/dL (Normal) Range: 31.5-35.7 MCH 29.9 pg (Normal) Range: 26.6-33.0 MCV 88 fL (Normal) Range: 79-97 Hematocrit 38.2 % (Normal) Range: 34.0-46.6 Hemoglobin 13.0 g/dL (Normal) Range: 11.1-15.9 RBC 4.35 {x10E6/uL} (Normal) Range: 3.77-5.28 WBC 8.6 {x10E3/uL} (Normal) Range: 3.4-10.8 29-Jan-20189:29 Comp. Metabolic Panel (14) Comments: PATIENT NOT FASTINGPERFORMED BY: CB [facility] Pqszsu2585 [facility] [id number] BY: BN [facility] [address] [id number] ALT (SGPT) 19 [iU]/L (Normal) Range: 0-32 AST (SGOT) 17 [iU]/L (Normal) Range: 0-40 Alkaline Phosphatase, S 105 [iU]/L Range: 39-117 (Normal) Bilirubin, Total 0.3 mg/dL (Normal) Range: 0.0-1.2 A/G Ratio 1.7 (Normal) Range: 1.2-2.2 Globulin, Total 2.5 g/dL (Normal) Range: 1.5-4.5 Albumin, Serum 4.3 g/dL (Normal) Range: 3.5-4.8 Protein, Total, Serum 6.8 g/dL (Normal) Range: 6.0-8.5 Calcium, Serum 9.4 mg/dL (Normal) Range: 8.7-10.3 Carbon Dioxide, Total 22 mmol/L (Normal) Range: 18-29 Chloride, Serum 103 mmol/L Range: 96-106 (Normal) Potassium, Serum 4.5 mmol/L Range: 3.5-5.2 (Normal) Sodium, Serum 142 mmol/L Range: 134-144 (Normal) BUN/Creatinine Ratio 29 (Abnormal) Range: 12-28 eGFR If Africn Am 67 mL/min/1.73 (Normal) eGFR If NonAfricn Am 58 mL/min/1.73 (Abnormal) Creatinine, Serum 0.95 mg/dL Range: 0.57-1.00 (Normal) BUN 28 mg/dL Range: 8-27 (Abnormal) Glucose, Serum 109 mg/dL Range: 65-99 (Abnormal) : Methylmalonic Acid, 406 nmol/L Comments: PATIENT NOT FASTINGPERFORMED BY: [employer] [id number] BY: Arrively[address] [id number] 29 Serum (Abnormal) Range: 0-378 : Vitamin B12 346 pg/mL (Normal) Comments: PATIENT NOT FASTINGPERFORMED BY: [employer] [facility]Co[address] [id number] BY: LabCo[address] [id number] Range: 232-1245 31-Zkw-018579:46 FLU A+B DIRECT AG, (RAPID) (28050) FLU A+B DIRECT AG, (RAPID) positive a (Normal) :59 HgA1C , Office (71495) HgA1C , Office 6.1 % (Normal) Range: 4.6 - 7.1 :45 HgA1C , Office (41255) HgA1C , Office 5.8 % (Normal) Range: 4.6 - 7.1 47-Tdm-86058:45 Blood Glucose , Office (58447) Blood Glucose , Office 103 (Normal) 00-Olh-365028:22 CALCIFIDIOL (55557) VIT D Comments: PATIENT WAS FASTINGPERFORMED BY: [employer] Cbjakggovo4215 [facility] [id number] BY: ArrivelyMonmouth Medical CenterXzvkgy1031 [facility] [id number] 25 Vitamin D, 25-Hydroxy 36.9 ng/mL (Normal) Range: 30.0-100.0 Comments: Vitamin D deficiency has been defined by the [place] ofMedicine and an Endocrine Society practice guideline as alevel of serum 25-OH vitamin D less than 20 ng/mL (1,2).The Endocrine Society went on to further define vitamin Dinsufficiency as a level between 21 and 29 ng/mL (2).1. IOM ([place] of Medicine). 2010. Dietary reference intakes for calcium and D. [place]: The National Academies Press.2. Delmis MF, Romy BRITTON, Yoandy ASHBY, et al. Evaluation, treatment, and prevention of vitamin D deficiency: an Endocrine Society clinical practice guideline. JCEM. 2010; 96(7):1911-30. 94-Eaz-441215:22 MICROALBUMIN: CREATININE Comments: PATIENT WAS FASTINGPERFORMED BY: [employer] Nfccumejps6349 [facility] [id number] BY: ArrivelyMonmouth Medical CenterWzlptk3795 [facility] [id number] RATIO (92978) AND (56657) Microalb/Creat Ratio 8.2 {mg/g_creat} (Normal) Range: 0.0-30.0 Microalbumin, Urine 7.0 ug/mL (Normal) Creatinine, Urine 85.3 mg/dL (Normal) 63-Pgs-297888:22 METABOLIC PANEL, Comments: PATIENT WAS FASTINGPERFORMED BY: [employer] Leiuzqksui0156 [facility] [id number] BY: LabENTEROME BioscienceMonmouth Medical CenterPihnxo2498 [facility] [id number] COMPREHENSIVE (91147) ALT (SGPT) 26 [iU]/L (Normal) Range: 0-32 AST (SGOT) 20 [iU]/L (Normal) Range: 0-40 Alkaline Phosphatase, S 99 [iU]/L (Normal) Range: 39-117 Bilirubin, Total 0.5 mg/dL (Normal) Range: 0.0-1.2 A/G Ratio 1.7 (Normal) Range: 1.2-2.2 Globulin, Total 2.5 g/dL (Normal) Range: 1.5-4.5 Albumin, Serum 4.3 g/dL (Normal) Range: 3.5-4.8 Protein, Total, Serum 6.8 g/dL (Normal) Range: 6.0-8.5 Calcium, Serum 9.1 mg/dL (Normal) Range: 8.7-10.3 Carbon Dioxide, Total 22 mmol/L (Normal) Range: 18-29 Chloride, Serum 105 mmol/L (Normal) Range: 96-106 Potassium, Serum 4.5 mmol/L (Normal) Range: 3.5-5.2 Sodium, Serum 144 mmol/L (Normal) Range: 134-144 BUN/Creatinine Ratio 25 (Normal) Range: 12-28 eGFR If Africn Am 96 mL/min/1.73 (Normal) eGFR If NonAfricn Am 83 mL/min/1.73 (Normal) Creatinine, Serum 0.71 mg/dL (Normal) Range: 0.57-1.00 BUN 18 mg/dL (Normal) Range: 8-27 Glucose, Serum 95 mg/dL (Normal) Range: 65-99 94-Equ-552590:22 LIPOPROTEIN, BLD, BY NMR Comments: PATIENT WAS FASTINGPERFORMED BY: BN [facility] [address] [id number] BY: [facility] [address] [id number] (64880) LP-IR Score 72 (Abnormal) Comments: INSULIN RESISTANCE MARKER <--Insulin Sensitive Insulin Resistant--> Percentile in Reference PopulationInsulin Resistance ScoreLP-IR Score Low 25th 50th 75th High <27 27 45 63 >63LP-IR Score is inaccurate if patient is non-fasting. .The LP-IR score is a laboratory developed i ndex that has beenassociated with insulin resistance and diabetes risk and should beused as one component of a physician's clinical assessment. TheLP-IR score listed above has not been cleared by the [place] Food andDrug Administration. LDL Size 19.9 nm (Normal) Comments: INTERPRETATIVE INFORMATION PARTICLE CONCENTRATION AND SIZE <--Lower CVD Risk Highe r CVD Risk--> LDL AND HDL PARTICLES Percentile in Reference Population HDL-P (total) High 75th 50th 25th Low >34.9 34.9 30.5 26.7 <26.7 . Small LDL-P Low 25th 50th 75th High <117 117 527 839 >839 . LDL Size <-Large (Pattern A)-> <-Small (Pattern B)-> 23.0 20.6 20.5 19.0 Small LDL-P and LDL Size are associated with CVD risk, but not afterLDL-P is taken into account. .These assays were developed and their performance characteristicsdetermined by [employer]. These assays have not been cleared by [place] Food and Drug Administration. The clinical utility of theselaboratory values have not been fully established. Small LDL-P 313 nmol/L (Normal) HDL-P (Total) 30.6 umol/L (Normal) Cholesterol, Total 93 mg/dL (Abnormal) Range: 100-199 Triglycerides 134 mg/dL (Normal) Range: 0-149 HDL-C 38 mg/dL (Abnormal) LDL-C 28 mg/dL (Normal) Range: 0-99 Comments: . Optimal < 100 Above optimal 100 - 129 Borderline 1 30 - 159 High 160 - 189 Very high > 189 .LDL-C is inaccurate if patient is non-fasting. LDL-P 460 nmol/L (Normal) Comments: Low < 1000 Moderate 1000 - 1299 Borderline-High 1300 - 1599 High 1600 - 2000 Very High > 2000 18-Kcn-853663:22 CBC, Platelets & Auto Comments: PATIENT WAS FASTINGPERFORMED BY: BN [facility] Lcrpymaaqe3774 [facility] [id number] BY: CB [facility] Dcgvud3187 Damaso [facility] [id number]; fu 8-31 Diff (44034) Immature Grans (Abs) 0.0 {x10E3/uL} (Normal) Range: 0.0-0.1 Immature Granulocytes 0 % (Normal) Baso (Absolute) 0.0 {x10E3/uL} (Normal) Range: 0.0-0.2 Eos (Absolute) 0.1 {x10E3/uL} (Normal) Range: 0.0-0.4 Monocytes(Absolute) 1.0 {x10E3/uL} (Abnormal) Range: 0.1-0.9 Lymphs (Absolute) 2.8 {x10E3/uL} (Normal) Range: 0.7-3.1 Neutrophils (Absolute) 6.7 {x10E3/uL} (Normal) Range: 1.4-7.0 Basos 0 % (Normal) Eos 1 % (Normal) Monocytes 9 % (Normal) Lymphs 27 % (Normal) Neutrophils 63 % (Normal) Platelets 282 {x10E3/uL} (Normal) Range: 150-379 RDW 14.2 % (Normal) Range: 12.3-15.4 MCHC 32.9 g/dL (Normal) Range: 31.5-35.7 MCH 29.1 pg (Normal) Range: 26.6-33.0 MCV 88 fL (Normal) Range: 79-97 Hematocrit 40.7 % (Normal) Range: 34.0-46.6 Hemoglobin 13.4 g/dL (Normal) Range: 11.1-15.9 RBC 4.61 {x10E6/uL} (Normal) Range: 3.77-5.28 WBC 10.7 {x10E3/uL} (Normal) Range: 3.4-10.8 9-Ckb-042644:12 HgA1C , Office (56328) HgA1C , Office 5.9 % (Normal) Range: 4.6 - 7.1 04-Qoh-377166:01 Microscopic Examination Comments: PATIENT NOT FASTINGPERFORMED BY: Arrively Ftxaez1480 [facility] [id number] Bacteria Few (Normal) Mucus Threads Present (Normal) Crystal Type Calcium Oxalate (Normal) Crystals Present (Abnormal) Cast Type Hyaline casts (Normal) Casts Present {/lpf} (Abnormal) Epithelial Cells (non renal) 0-10 {/hpf} (Normal) Range: 0 - 10 RBC 0-2 {/hpf} (Normal) Range: 0 - 2 WBC 6-10 {/hpf} (Abnormal) Range: 0 - 5 :01 Protein Electro, Random Urine Comments: PATIENT NOT FASTINGPERFORMED BY: [facility]iCoGeneral [facility] Lrgeqt0878 [facility] [id number] Please note: SPRCS (Normal) Comments: Protein electrophoresis scan will follow via computer, mail, orcourier delivery. M-Cristian, % Not Observed % (Normal) Gamma Globulin, U 22.7 % (Normal) Beta Globulin, U 37.8 % (Normal) Yymob-6-Ezfdngnf, U 13.4 % (Normal) Cokrs-6-Mftstwpm, U 2.1 % (Normal) Albumin, U 23.9 % (Normal) Protein,Total,Urine 12.6 mg/dL (Normal) : Urinalysis, Routine Comments: PATIENT NOT FASTINGPERFORMED BY: Arrively Cqlwav1316 [facility] [id number] Information: SRC:UC Microscopic Examination See below: (Normal) Comments: Microscopic was indicated and was performed. Nitrite, Urine Negative (Normal) Urobilinogen,Semi-Qn 0.2 mg/dL (Normal) Range: 0.2-1.0 Bilirubin Negative (Normal) Occult Blood Negative (Normal) Ketones Negative (Normal) Glucose Negative (Normal) Protein Negative (Normal) WBC Esterase 1+ (Abnormal) Appearance Cloudy (Abnormal) Urine-Color Yellow (Normal) pH 6.0 (Normal) Range: 5.0-7.5 Specific Mcnabb 1.024 (Normal) Range: 1.005-1.030 :01 Urine Culture,Comprehensive Comments: PATIENT NOT FASTINGPERFORMED BY: [facility]6370 [facility] [id number] Result 1 MUG (Normal) Comments: Mixed urogenital flora25,000-50,000 colony forming units per mL Urine Final report (Normal) Culture,Comprehensive 62-Pnd-085405:51 MICROALBUMIN: CREATININE Comments: PATIENT NOT FASTINGPERFORMED BY: [place] [id number] [facility] [id number] BY: [address] [id number] RATIO (25537) AND (06207) Microalb/Creat Ratio 4.4 {mg/g_creat} (Normal) Range: 0.0-30.0 Microalbumin, Urine 13.9 ug/mL (Normal) Creatinine, Urine 315.6 mg/dL (Normal) 84-Kqf-158048:51 CBC with auto diff Comments: PATIENT NOT FASTINGPERFORMED BY: [place] [id number] [facility] [id number] BY: [address] [id number] (34835) Immature Grans (Abs) 0.0 {x10E3/uL} (Normal) Range: 0.0-0.1 Immature Granulocytes 0 % (Normal) Baso (Absolute) 0.0 {x10E3/uL} (Normal) Range: 0.0-0.2 Eos (Absolute) 0.2 {x10E3/uL} (Normal) Range: 0.0-0.4 Monocytes(Absolute) 1.0 {x10E3/uL} (Abnormal) Range: 0.1-0.9 Lymphs (Absolute) 2.4 {x10E3/uL} (Normal) Range: 0.7-3.1 Neutrophils (Absolute) 7.2 {x10E3/uL} (Abnormal) Range: 1.4-7.0 Basos 0 % (Normal) Eos 2 % (Normal) Monocytes 9 % (Normal) Lymphs 22 % (Normal) Neutrophils 67 % (Normal) Platelets 341 {x10E3/uL} (Normal) Range: 150-379 RDW 14.0 % (Normal) Range: 12.3-15.4 MCHC 33.7 g/dL (Normal) Range: 31.5-35.7 MCH 29.2 pg (Normal) Range: 26.6-33.0 MCV 87 fL (Normal) Range: 79-97 Hematocrit 42.4 % (Normal) Range: 34.0-46.6 Hemoglobin 14.3 g/dL (Normal) Range: 11.1-15.9 RBC 4.89 {x10E6/uL} (Normal) Range: 3.77-5.28 WBC 10.9 {x10E3/uL} (Abnormal) Range: 3.4-10.8 25-Xis-232598:51 SPEP (28156) Comments: PATIENT NOT FASTINGPERFORMED BY: [employer] [facility]Con[facility]ioUNC [facility] [id number] BY: Arrively[address] [id number] Please note: SPRCS (Normal) Comments: Protein electrophoresis scan will follow via computer, mail, orcourier delivery. A/G Ratio 1.1 (Normal) Range: 0.7-1.7 Globulin, Total 3.6 g/dL (Normal) Range: 2.2-3.9 M-Cristian Not Observed g/dL (Normal) Gamma Globulin 1.0 g/dL (Normal) Range: 0.4-1.8 Beta Globulin 1.3 g/dL (Normal) Range: 0.7-1.3 Wvtcg-4-Wobvjezx 1.1 g/dL (Abnormal) Range: 0.4-1.0 Wmjbm-3-Vtevwqhe 0.2 g/dL (Normal) Range: 0.0-0.4 Albumin 3.8 g/dL (Normal) Range: 2.9-4.4 Protein, Total, Serum 7.4 g/dL (Normal) Range: 6.0-8.5 :51 Sed Rate Erythrocyte Comments: PATIENT NOT FASTINGPERFORMED BY: [employer] Tigtms6142 [facility] [id number] BY: Arriv[address] [id number] (23668) Sedimentation Rate-Westergren 16 mm/h (Normal) Range: 0-40 13-Enp-460477:51 Methymalonic Acid, Serum Comments: PATIENT NOT FASTINGPERFORMED BY: ArrivelyCody [place] [id number] [facility] [id number] BY: [address] [id number] (91937) Methylmalonic Acid, Serum 350 nmol/L (Normal) Range: 0-378 35-Snt-800373:51 Vitamin B-12 Comments: PATIENT NOT FASTINGPERFORMED BY: LabGeneral [facility] Fqkwxk8400 [facility] [id number] BY: [employer]Co[address] [id number] (cyanocobalamin) (88506) Vitamin B12 351 pg/mL (Normal) Range: 211-946 58-Ibb-110106:48 URINE LIANET CULTURE-IDENTIFICATN Comments: PATIENT NOT FASTINGPERFORMED BY: [facility]iCoGeneral [facility] Yumcmc9100 [facility] [id number] Information: SRC:COLE (99107) Result 1 MUG (Normal) Comments: Mixed urogenital flora10,000-25,000 colony forming units per mL Urine Final report (Normal) Culture,Comprehensive 27-Shv-800681:20 Urinalysis, Office (25782) UA - LEUKOCYTE ESTERASE Negative (Normal) UA - NITRITE Negative (Normal) URINE UROBILINGN HANY TIMED Normal mg/dL (Normal) UA - PROTEIN Negative mg/dL (Normal) UA - PH 5 (Abnormal) UA - BLOOD Negative (Normal) UA - SPECIFIC GRAVITY 1.025 (Normal) UA - KETONES Negative mg/dL (Normal) UA - BILIRUBIN Small (Normal) UA - GLUCOSE Negative (Normal) 90-Vvs-882148:53 URINE LIANET CULTURE-IDENTIFICATN Comments: PATIENT NOT FASTINGPERFORMED BY: [place] [id number] [facility] [id number] Information: SRC:COLE (34870) Antimicrobial MIHEAD (Normal) Comments: S = Susceptible; I = Intermediate; R = Resistant P = Positive; N = Negative MICS are expressed in micrograms per mL Antibiotic RSLT#1 RSLT#2 RS Susceptibility LT#3 RSLT#4Amoxicillin/Clavulanic Acid S SAmpicillin S SCefepime S SCeftriaxone S SCefuroxime S SCephalothin S SCiprofloxacin S SErtapenem S SGentamicin S SImipenem SLevofloxacin S SNitrofurantoin S RPiperacillin S STetracycline S RTobramycin S STrimethoprim/Sulfa S S Result 2 Proteus mirabilis Comments: 10,000-25,000 colony forming units per mL (Abnormal) Result 1 ECV (Abnormal) Comments: Escherichia coli, identified by an automated biochemical system.Greater than 100,000 colony forming units per mL Urine Final report Culture,Comprehensive (Abnormal) [id number] HgA1C , Office (67011) HgA1C , Office 6.7 % (Normal) Range: 4.6 - 7.1 6-Mwh-[id number]:41 Urinalysis, Office ([id number]) UA - LEUKOCYTE ESTERASE Moderate (Normal) UA - NITRITE Negative (Normal) URINE UROBILINGN HANY TIMED Normal mg/dL (Normal) UA - PROTEIN Negative mg/dL (Normal) UA - PH 6.0 (Normal) Comments: 5.5 UA - BLOOD Non Hemolyzed Trace (Normal) UA - SPECIFIC GRAVITY 1.025 (Normal) UA - KETONES Negative mg/dL (Normal) UA - BILIRUBIN Negative (Normal) UA - GLUCOSE Negative (Normal) Plan of Care Name Dates Details Instructions Bursitis of left hip, unspecified bursa : Hip Bursa Indication: Bursitis of left hip, unspecified bursa Nonsmoker : Eprescribed prescriptions (G8553) Indication: Nonsmoker Fatigue : Eprescribed prescriptions (G8553) Indication: Fatigue Nonsmoker : Follow up in 3 weeks Indication: Nonsmoker Nocturia : Eprescribed prescriptions (G8553) Indication: Nocturia Diabetes mellitus type II, controlled, with no complications (Renamed from Controlled type 2 diabetes mellitus without complication) : Eprescribed prescriptions (G8553) Indication: Diabetes mellitus type II, controlled, with no complications (Renamed from Controlled type 2 diabetes mellitus without complication) Planned Observations Sed Rate Erythrocyte ([id number])Indication: Palpitation On: 78-Ohm-225880:51 Request CBC (Auto) ([id number])Indication: Palpitation On: 56-Taa-716277:51 Request Metabolic Panel, Comprehensive ([id number])Indication: Palpitation On: 27-Oya-129331:51 Request Troponin I ([id number])Indication: Chest discomfort On: 99-Pat-171762:51 Request BNTP ([id number])Indication: Palpitation On: 45-Tbx-936256:51 Request Methymalonic Acid, Serum (78830)Indication: Fatigue On: :04 Request Vitamin B-12 (cyanocobalamin) (60923)Indication: Fatigue On: :04 Request MICROALBUMIN: CREATININE RATIO ([id number]) AND (42913)Indication: Essential hypertension On: :39 Request URINALYSIS ([id number])Indication: Essential hypertension On: :39 Request Metabolic Panel, Comprehensive ([id number])Indication: Essential hypertension On: :39 Request CBC WITH MANUAL DIFF ([id number])Indication: Essential hypertension On: :39 Request UPEP ([id number])Indication: Chronic back pain, unspecified back location, unspecified back pain laterality On: 64-Yup-837191:43 Request URINE LIANET CULTURE-IDENTIFICATN ([id number])Indication: UTI (urinary tract infection) On: :49 Request Comments: re check after ATB URINALYSIS ([id number])Indication: UTI (urinary tract infection) On: :49 Request Planned Procedures XR SACRUM AND COCCYX, 3 VIEWS On: 11-Oct-2018 Intent ([id number])By: Halle New MD, MD, Dana M EKG ([id number])By: Halle New MD On: 11-Oct-2018 Intent Halle New MD Comments: see scanned document of test done to see results reviewed today with patient DRAIN/INJECT INTERMED JOINT/BURSA On: 22-Jul-2018 Intent ()By: Halle New MD Comments: right hip 2 cc marcaine lot# [id number] exp 1 cc Kenalog [id number] given by Halle Shannon MD INJECTION, VITAMIN B-12 On: 16-Jul-2018 Intent CYANOCOBALAMIN, UP TO 1000 MCG Comments: lot:[id number]:01/2020rte:IM left deltoid dose:1ml given by:joycelyn Sy LPN (Special Coverage Instructions Apply. See CIM: 45-4 and MCM: 2049) (J3420)By: Halle New MD, MD, Dana M B 12 Injection, 1000 mcg (J3420)By: On: 02-Jul-2018 Intent Visit, Nurse Comments: 1724128.ml, 1000mcgR dltd, IMMLONG B 12 Injection, 1000 mcg (J3420)By: On: 21-Jun-2018 Intent Visit, Nurse Comments: Lot #[id number]-R arm, dltd. Dose-prefilled syringegiven by:GLORIA Gillette signed B 12 Injection, 1000 mcg (J3420)By: On: 06-May-2018 Intent Halle New MD, MD, Dana M B 12 Injection, 1000 mcg (J3420)By: On: 16-Apr-2018 Intent Halle New MD, MD, Dana Comments: lot: [id number]: 08/18site/route: L del/IMamt: 1mLVIS signed when applicableOFELIA Ricks PHARMACOLOGIC STRESS GATED CARDIAC On: 09-Apr-2018 Intent BLOOD POOL IMAGING ([id number])By: MARY KAY Darnell B 12 Injection, 1000 mcg (J3420)By: On: 02-Apr-2018 Intent Halle New MD, MD, Dana Comments: Vitamin b12 1000mcg injection lot:[id number]:08/2019R DELT IMpt tolerated well MSMITH,AUTOMATIC SEAMER M B 12 Injection, 1000 mcg (J3420)By: On: 18-Mar-2018 Intent Halle New MD, MD, Dana Comments: Vitamin b12 1000mcg injection lot:[id number]:08/2019L DELT IMpt tolerated well MSMITH,AUTOMATIC SEAMER M B 12 Injection, 1000 mcg (J3420)By: On: 09-Mar-2018 Intent Halle New MD, MD, Dana Comments: lot:[id number]:08/2019rte:IM right deltoid dose:1 ml given by: RAFAEL Ortiz SPECT MUGA ([id number])By: Shaq VAUGHAN, On: 09-Mar-2018 Intent Halle Leon MD Comments: do at [facility] SCREENING DIGITAL TOMOSYNTHESIS OF On: 05-Nov-2017 Intent BREAST ([id number])By: Shaq VAUGHAN, Halle Leon MD Radiology - Wrist - RightBy: On: 16-Dec-2016 Intent Halle New MD, MD, Dana M DEXA SCAN AXIAL SKELETON ([id number])By: On: 03-Oct-2016 Intent Halle New MD, MD, Dana M MAMMOGRAM, SCREENING, BOTH BREAST On: 03-Oct-2016 Intent ([id number])By: Shaq VAUGHAN, Halle Leon MD Planned Medications Vitamin B-12 1000 MCG/ML Injection Solution Ordered: 09-Mar-2018 Pending Halle New MD, MD, Dana M Vitamin B-12 1000 MCG/ML Injection Solution Ordered: 18-Mar-2018 Pending Halle New MD, MD, Dana M Vitamin B-12 1000 MCG/ML Injection Solution Ordered: 02-Apr-2018 Pending Halle New MD, MD, Dana M Vitamin B-12 1000 MCG/ML Injection Solution Ordered: 16-Apr-2018 Pending Halle New MD, MD, Dana M Vitamin B-12 1000 MCG/ML Injection Solution Ordered: 06-May-2018 Pending Halle New MD, MD, Dana M Vitamin B-12 1000 MCG/ML Injection Solution Ordered: 21-Jun-2018 Pending Visit, Nurse Vitamin B-12 1000 MCG/ML Injection Solution Ordered: 02-Jul-2018 Pending Visit, Nurse Vitamin B-12 1000 MCG/ML Injection Solution Ordered: 16-Jul-2018 Pending Halle New MD, MD, Dana M Instructions Name Dates Details Lumbago : How to access health information online Indication: Lumbago Lumbago : How to access health information online - Detail Indication: Lumbago Lumbago : Patient Instructions Indication: Lumbago Sciatica, left side : How to access health information online Indication: Sciatica, left side Sciatica, left side : How to access health information online - Detail Indication: Sciatica, left side Sciatica, left side : Patient Instructions Indication: Sciatica, left side Tobacco abuse, 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) : How to access health information online Indication: Tobacco abuse, 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, 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) : How to access health information online - Detail Indication: Tobacco abuse, 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, 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) : Patient Instructions Indication: Tobacco abuse, 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) Nonsmoker : How to access health information online Indication: Nonsmoker Nonsmoker : How to access health information online - Detail Indication: Nonsmoker Nonsmoker : Patient Instructions Indication: Nonsmoker Fatigue : How to access health information online Indication: Fatigue Fatigue : How to access health information online - Detail Indication: Fatigue Fatigue : Patient Instructions Indication: Fatigue Encounter for annual general medical examination with abnormal findings in adult : How to access health information online Indication: Encounter for annual general medical examination with abnormal findings in adult Encounter for annual general medical examination with abnormal findings in adult : How to access health information online - Detail Indication: Encounter for annual general medical examination with abnormal findings in adult Encounter for annual general medical examination with abnormal findings in adult : Patient Instructions Indication: Encounter for annual general medical examination with abnormal findings in adult Flu-like symptoms : How to access health information online Indication: Flu-like symptoms Flu-like symptoms : How to access health information online - Detail Indication: Flu-like symptoms Flu-like symptoms : Patient Instructions Indication: Flu-like symptoms Diabetes mellitus type II, controlled, with no complications (Renamed from Controlled type 2 diabetes mellitus without complication) : How to access health information online Indication: Diabetes mellitus type II, controlled, with no complications (Renamed from Controlled type 2 diabetes mellitus without complication) Diabetes mellitus type II, controlled, with no complications (Renamed from Controlled type 2 diabetes mellitus without complication) : How to access health information online - Detail Indication: Diabetes mellitus type II, controlled, with no complications (Renamed from Controlled type 2 diabetes mellitus without complication) Diabetes mellitus type II, controlled, with no complications (Renamed from Controlled type 2 diabetes mellitus without complication) : Patient Instructions Indication: Diabetes mellitus type II, controlled, with no complications (Renamed from Controlled type 2 diabetes mellitus without complication) Diabetes mellitus type II, controlled, with no complications (Renamed from Controlled type 2 diabetes mellitus without complication) : How to access health information online Indication: Diabetes mellitus type II, controlled, with no complications (Renamed from Controlled type 2 diabetes mellitus without complication) Diabetes mellitus type II, controlled, with no complications (Renamed from Controlled type 2 diabetes mellitus without complication) : How to access health information online - Detail Indication: Diabetes mellitus type II, controlled, with no complications (Renamed from Controlled type 2 diabetes mellitus without complication) Diabetes mellitus type II, controlled, with no complications (Renamed from Controlled type 2 diabetes mellitus without complication) : Patient Instructions Indication: Diabetes mellitus type II, controlled, with no complications (Renamed from Controlled type 2 diabetes mellitus without complication) Encounter for annual general medical examination with abnormal findings in adult : How to access health information online Indication: Encounter for annual general medical examination with abnormal findings in adult Encounter for annual general medical examination with abnormal findings in adult : How to access health information online - Detail Indication: Encounter for annual general medical examination with abnormal findings in adult Encounter for annual general medical examination with abnormal findings in adult : Patient Instructions Indication: Encounter for annual general medical examination with abnormal findings in adult BMI 37.0-37.9, adult : How to access health information online Indication: BMI 37.0-37.9, adult BMI 37.0-37.9, adult : How to access health information online - Detail Indication: BMI 37.0-37.9, adult BMI 37.0-37.9, adult : Patient Instructions Indication: BMI 37.0-37.9, adult Nocturia : How to access health information online - Detail Indication: Nocturia Nocturia : How to access health information online Indication: Nocturia Nocturia : Patient Instructions Indication: Nocturia Diabetes mellitus type II, controlled, with no complications (Renamed from Controlled type 2 diabetes mellitus without complication) : How to access health information online Indication: Diabetes mellitus type II, controlled, with no complications (Renamed from Controlled type 2 diabetes mellitus without complication) Diabetes mellitus type II, controlled, with no complications (Renamed from Controlled type 2 diabetes mellitus without complication) : How to access health information online - Detail Indication: Diabetes mellitus type II, controlled, with no complications (Renamed from Controlled type 2 diabetes mellitus without complication) Diabetes mellitus type II, controlled, with no complications (Renamed from Controlled type 2 diabetes mellitus without complication) : Patient Instructions Indication: Diabetes mellitus type II, controlled, with no complications (Renamed from Controlled type 2 diabetes mellitus without complication) Essential hypertension : Patient Instructions Indication: Essential hypertension Encounters Office Visit On: 11-Oct-2018 16:24 Encounter Diagnosis: Chest discomfort, Lumbago, BMI 38.0-38.9,adult, Tobacco abuse, 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), Sensory urge incontinence, Coccygeal contusion, Palpitation, Ingrown toenail End: 11-Oct-2018 17:01 [facility] Office Visit On: 22-Jul-2018 10:47 Encounter Diagnosis: Sciatica, left side, Tobacco abuse, 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), Bursitis of left hip, unspecified bursa End: 23-Jul-2018 12:57 [facility] Office Visit On: 16-Jul-2018 9:13 Encounter Diagnosis: BMI 38.0-38.9,adult, Tobacco abuse, 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), Vitamin B12 deficiency (non anemic), Sciatica, left side End: 16-Jul-2018 9:55 [facility] Office Visit On: 02-Jul-2018 9:59 Encounter Reason: InjectionsEncounter Diagnosis: Vitamin B12 deficiency (non anemic) End: 05-Jul-2018 14:58 [facility] Office Visit On: 21-Jun-2018 10:38 Encounter Reason: InjectionsEncounter Diagnosis: BMI 37.0-37.9, adult, Nonsmoker, Vitamin B12 deficiency (non anemic) End: 24-Jun-2018 9:28 [facility] Office Visit On: 06-May-2018 9:11 Encounter Reason: Follow up tests - Date: (03/2018 MUGA).Encounter Diagnosis: Fatigue, Tobacco abuse, 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), BMI 38.0-38.9,adult, Osteopenia, Vitamin D insufficiency, End: 06-May-2018 10:05 Degeneration of intervertebral disc of lumbar region, Chronic back pain, unspecified back location, unspecified back pain laterality, Sensory urge incontinence, Family history of melanoma, Vitamin B12 deficiency (non anemic), Essential hypertension, Diabetes mellitus type II, controlled, with no complications (Renamed from Controlled type 2 diabetes mellitus without complication), Cardiomyopathy, dilated, History of nephrolithiasis, Flu-like symptoms, BMI 37.0-37.9, adult, Nonsmoker [facility] Office Visit On: 16-Apr-2018 9:53 Encounter Reason: Nurse procedure visit - Reason for visit: other (b12 injection).Encounter Diagnosis: Vitamin B12 deficiency (non anemic) End: 20-Apr-2018 10:26 [facility] Phone Encounter On: 09-Apr-2018 15:38 Encounter Diagnosis: Cardiomyopathy, dilated End: 09-Apr-2018 15:40 [facility] Office Visit On: 02-Apr-2018 9:59 Encounter Reason: Injections - The medication the patient is here to receive is vitamin B12 IM.Encounter Diagnosis: Vitamin B12 deficiency (non anemic) End: 02-Apr-2018 12:40 [facility] Office Visit On: 18-Mar-2018 11:00 Encounter Reason: Injections - The medication the patient is here to receive is vitamin B12 IM.Encounter Diagnosis: Vitamin B12 deficiency (non anemic) End: 19-Mar-2018 10:41 [facility] Office Visit On: 09-Mar-2018 13:41 Encounter Reason: Physical female exam - Last seen between 1-3 months ago. General health: feels well with minor complaints and has decreased energy level. The patient's appetite is normal. Nutrition: normal/adequate. Ex End: 11-Mar-2018 8:00 ercises 3 days per week. Sleeps on average 6 hours per night. Normal bowel and bladder habits. Safety measures include appropriate use of safety belts and home smoke detectors. Current emotional problem s include anxiety and depression. 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), Vitamin D insufficiency, Sensory urge incontinence, Chronic back pain, unspecified back location, unspecified back pain laterality, Osteopenia, Family history of melanoma, Degeneration of intervertebral disc of lumbar region, Leukocytosis, unspecified type, Diabetes mellitus type II, controlled, with no complications (Renamed from Controlled type 2 diabetes mellitus without complication), Essential hypertension, Fatigue, Cardiomyopathy, dilated, History of nephrolithiasis , Encounter for annual general medical examination with abnormal findings in adult, Vitamin B12 deficiency (non anemic) [facility] Lab Order On: 29-Jan-2018 9:03 Encounter Diagnosis: Fatigue End: 29-Jan-2018 9:05 [facility] Lab Order On: 20-Jan-2018 16:37 Encounter Diagnosis: Essential hypertension End: 20-Jan-2018 16:40 [facility] Office Visit On: 28-Dec-2017 11:38 Encounter Reason: Flu Like Symptoms - The last clinic visit was 3 day(s) ago. Symptoms include fever, chills, body aches, nasal congestion, runny nose, scratchy throat, hoarseness, productive cough, facial pressure and headache. Onset was gradual. End: 28-Dec-2017 12:04 Encounter Diagnosis: BMI 37.0-37.9, adult, Flu-like symptoms, History of tobacco abuse, Influenza [facility] Office Visit On: 05-Nov-2017 9:55 Encounter Reason: Follow up for chronic medical issues - The patient feels well with minor complaints and has good energy level. Patient has been compliant with instructions. Current medication use: no side effects, comp End: 05-Nov-2017 10:39 liant with dosing regimen and considered effective by patient. Patient sleeps 7 hours per night. Impact of disease: emotional impact-moderate. Nutrition: balanced diet and supplemental vitamins. The med ical issues the patient is following up for include blood sugar issues, cardiac issues, high blood pressure, high cholesterol, osteoporosis/osteopenia and other (DDD, UI).Encounter Diagnosis: BMI 37.0-37.9, adult, Diabetes mellitus type II, controlled, with no complications (Renamed from Controlled type 2 diabetes mellitus without complication), History of tobacco abuse, Encounter for screening mammogram for breast cancer (Renamed from Encounter for screening mammogram for malignant neoplasm of breast), Osteopenia, Leukocytosis, unspecified type, Family history of melanoma, Nonsmoker, Chronic back pain, unspecified back location, unspecified back pain laterality, Degeneration of intervertebral disc of lumbar region, Sensory urge incontinence, Essential hypertension, Vitamin D insufficiency, Cardiomyopathy, dilated, History of nephrolithiasis [facility] Office Visit On: 30-Jul-2017 8:43 Encounter Reason: Follow up tests - Date: (07/24/17 labs)., [ADDITIONAL REASON] Follow up for chronic medical issues - The patient feels well with minor complai End: 30-Jul-2017 9:22 nts, has decreased energy level and is sleeping well. Patient has been compliant with instructions. Current medication use: no side effects and compliant with dosing regimen. Patient sleeps 7 hours per night. Nutrition: balanced diet and supplemental vitamins. The medical issues the patient is following up for include All identified problems below, blood sugar issues, high blood pressure and high cholesterol. fasting blood sugars :. Encounter Diagnosis: BMI 37.0-37.9, adult, Nonsmoker, Diabetes mellitus type II, controlled, with no complications (Renamed from Controlled type 2 diabetes mellitus without complication), Chronic back pain, unspecified back location, unspecified back pain laterality, Family history of melanoma, Osteopenia, Leukocytosis, unspecified type, History of tobacco abuse, Degeneration of intervertebral disc of lumbar region, Sensory urge incontinence, Vitamin D insufficiency, Essential hypertension, Cardiomyopathy, dilated, History of nephrolithiasis, Encounter for annual general medical examination with abnormal findings in adult, Unsteady gait [facility] Office Visit On: 07-May-2017 8:04 Encounter Diagnosis: Vertigo End: 07-May-2017 8:42 [facility] Office Visit On: 30-Mar-2017 13:02 Encounter Reason: Annual Medicare Exam - The patient had reviewed and updated the family history, medication/s, past medical history and social history. Yes the patient did have a mini mental status exam done today. The End: 30-Mar-2017 13:49 activities of daily living the patient needs help with are none. The patient has driven in past 6 months, but the patient has not had fecal incontinence, had urinary incontinence, missed or ran out of m edications to soon, fallen in the past 6 months, gotten lost, has a medalert necklace or bracelet, put area rugs through house or put handrails in bathroom. The patient has completed the following preve ntative measures: PAP smear (hysterectomy ), mammography () and colonoscopy (2007 due this summer ). The patient does have durable power of entertainment manager and living will. The patient has noticed lack of energy. Other providers contributing to the patient's care are transition advisor (Dr. Raya ), gastrologist ([facility] [place] ) and other: (Opthalm: Dr. Bealsey ??Dentist: Dr. Ramos).Encounter Diagnosis: BMI 37.0-37.9, adult, Encounter for annual general medical examination with abnormal findings in adult, Diabetes mellitus type II, controlled, with no complications (Renamed from Controlled type 2 diabetes mellitus without complication), History of tobacco abuse, Family history of melanoma, Osteopenia, Unsteady gait, Right wrist pain, Postmenopausal (Renamed from Postmenopausal status), Essential hypertension, Degeneration of intervertebral disc of lumbar region, Sensory urge incontinence, Leukocytosis, unspecified type, Neck pain, Chronic back pain, unspecified back location, unspecified back pain laterality, Vitamin D insufficiency, Cardiomyopathy, dilated, History of nephrolithiasis, Nonsmoker [facility] Office Visit On: 16-Dec-2016 13:28 Encounter Diagnosis: BMI 37.0-37.9, adult, Encounter for annual general medical examination with abnormal findings in adult, History of tobacco abuse, Right wrist pain, Postmenopausal (Renamed from Postmenopausal status), Nocturia, End: 18-Dec-2016 8:43 Essential hypertension, Nonsmoker, Diabetes mellitus type II, controlled, with no complications (Renamed from Controlled type 2 diabetes mellitus without complication), Degeneration of intervertebral disc of lumbar region, Sensory urge incontinence, Cardiomyopathy, dilated, History of nephrolithiasis, BMI 38.0-38.9,adult, BMI 35.0- 35.9,adult, Unsteady gait, Family history of melanoma, Osteopenia, Chronic back pain, unspecified back location, unspecified back pain laterality, Vitamin D insufficiency, Leukocytosis, unspecified type, Neck pain [facility] Office Visit On: 12-Nov-2016 14:07 Encounter Reason: UTI - The urinary symptoms are described as frequency, urgency and incontinence. The symptoms have been occurring for 3 months. The urine is described as clear. The symptoms have been associated with fe End: 12-Nov-2016 14:48 steven (cold related? before ).Encounter Diagnosis: BMI 35.0-35.9,adult, Nonsmoker, Nocturia, UTI (urinary tract infection), History of nephrolithiasis [facility] Lab Order On: 21-Oct-2016 8:49 Encounter Diagnosis: UTI (urinary tract infection) End: 21-Oct-2016 8:50 [facility] Phone Encounter On: 21-Nov-2016 14:34 Encounter Diagnosis: UTI (urinary tract infection) End: 20-Oct-2016 14:39 [facility] Office Visit On: 17-Oct-2016 9:41 Encounter Reason: Follow up for chronic medical issues - The patient feels well with minor complaints, has good energy level and is sleeping poorly (because of urinating). Patient has been compliant with instructions. Pa End: 17-Oct-2016 10:29 cecil sleeps 6 (broken) hours per night. Nutrition: balanced diet., [ADDITIONAL REASON] Follow up tests Encounter Diagnosis: Nonsmoker, BMI 38.0-38.9,adult, Degenerative Disc Disease - Lumbar (722.52), Diabetes mellitus type II, controlled, with no complications (Renamed from Controlled type 2 diabetes mellitus without complication), Essential hypertension, Sensory urge incontinence, Right wrist pain, Postmenopausal (Renamed from Postmenopausal status), Cardiomyopathy, dilated, History of nephrolithiasis [facility] Office Visit On: 03-Oct-2016 10:59 Encounter Reason: new patient female physical - General health: feels well with no complaints, has decreased energy level and is sleeping poorly. The patient's appetite is normal. Nutrition: inappropriate diet (fast food End: 06-Oct-2016 10:27 , going out to eat). Elimination problems include urinary frequency.Encounter Diagnosis: Essential hypertension, Cardiomyopathy, dilated, Diabetes mellitus type II, controlled, with no complications (Renamed from Controlled type 2 diabetes mellitus without complication), BMI 38.0-38.9,adult, Encounter for annual general medical examination with abnormal findings in adult, Degenerative Disc Disease - Lumbar (722.52), Sensory urge incontinence, Encounter for screening mammogram for breast cancer (Renamed from Encounter for screening mammogram for malignant neoplasm of breast), Postmenopausal (Renamed from Postmenopausal status), History of nephrolithiasis, Right wrist pain [facility] Phone Encounter On: 03-Oct-2016 7:42 Encounter Diagnosis: Unspecified Diagnosis End: 03-Oct-2016 8:15 [facility] Payers Syeda Masters/MedicareALICE WALTMAN; a guarantor
--- OUTSIDE RECORDS SUMMARY | 2018-12-28 18:34 | XMS RPT_ITS | Continuity of Care Document ---
:1940 Author Organization [facility] Address [address] [facility] [address] [place] [address] Phone Care Team Providers Name Role Phone [...] do this summer with Dr. santoyo in [place] she will set up mammogram 01-06-18, BD [...] MARY KAY Darnell Start : 16-Dec-2016 Active Cipro 500 MG Oral Tablet 1 (one) Tablet bid for 0 days Quantity: 14 {Tablet} Refills: 0 Ordered:11-Oct-2018 Halle New MD, MD, Dana M Start : 11-Oct-2018 Active Coreg 25 MG Oral Tablet 1 [...] MD, Dana M Start : 11-Oct-2018 Active TraMADol HCl 50 MG Oral Tablet 1 (one) Tablet every 6 hours prn for 0 days Quantity: 20 {Tablet} Refills: 0 Ordered:22-Jul-2018 Halle New MD, MD, Dana M Start : 22-Jul-2018 Active Comments:twenty Aspirin Low Dose 81 MG Oral Tablet Chewable 1 (one) Tablet Chewable Tablet Chewable qd for 30 days Quantity: 30 {Tablet} Refills: 0 Ordered:18-Dec-2016 Halle New MD, MD, Halle Horta Start : 03-Oct-2016 End : 02-Nov-2016 Inactive Cheratussin AC 100-10 MG/5ML Oral Solution 1 (one) Milliliter Milliliter 1-2 tsp every 8 hours prn for 0 days Quantity: 60 {Milliliter} Refills: 0 Ordered:06-May-2018 Millicent Childs Start : 28-Dec-2017 End : 06-May-2018 Inactive Comments:sixty Ciprofloxacin HCl 500 MG Oral Tablet 1 [...] Start : 28-Dec-2017 End : 06-May-2018 Inactive Oxybutynin Chloride ER 10 MG Oral Tablet Extended Release 24 Hour 1 (one) Tablet ER 24HR bid for 30 days Quantity: 60 {Tablet} Refills: 4 Ordered:17-Oct-2016 Halle New MD, MD, Dana M Start : 17-Oct-2016 End : 17-Oct-2016 Discontinued [...] (CAD), BILAT Result: Comments: See Note; NOTES: [facility] Imaging Services [address] [place] [address] SCREENING MAMM (CAD), BILAT MR#: [id number] Acct: [id number] Name: SIMRAN WALDROP Rep #: [id number] : 1940 F 77 From: Jonny Martínez MD PCP: Halle New MD Status: REG CLI Study: SCREENING MAMM (CAD), BILAT Date of Exam: 01/06/18 Exam# [id number] Ordering Dr: Halle New MD AMMOGRAPHY - BILATERAL SCREENING REASON FOR EXAM: [...] delay biopsy of a clinically suspicious abnormality. [id number] Electronically Signed: Jonny Martínez MD at 15:14 EST Tel [phone], Service support , CC: Halle New MD Skiing Teacher: Signed 17-Feb-2017 OT D/C Summary Result: Comments: See Note; NOTES: [facility] [place] [address] Fax REHABILITATION SERVICES DIS CHARGE SUMMARY MR#: [id number] Acct: [id number] Name: SIMRAN WALDROP Rep #: [id number] : 1940 76 From: Fior Loving Referring DrEdin: Sen West DO Status: REG RCR Eval Date: Discharge Date: - OT D/C Summary It has been [...] Objective/Function: Pt. completed strength assessment. 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 Thank you for the referral of this patient. Sincerely, Fior Loving <Electronically signed by Fior Loving > 02/17/17 1449 CC: Halle New MD; Sen West DO KMB Signed 09-Jan-2017 OT General Evaluation Result: Comments: See Note; NOTES: [facility] [place] [address] Fax REHABILITATION SERVICES INI TIAL EVALUATION MR#: [id number] Acct: [id number] Name: SIMRAN WALDROP Rep #: [id number] : 1940 76 From: Fior Loving Referring [...] Wrist: Decrease secondary to pain but WFL. 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 Please let me know if there are questions or concerns regarding this plan of care. Physician Signature: Date: <Electronically signed by Fior Loving > 01/09/17 1539 CC: Halle New MD; Sen West DO KMB Signed For Medicare only, by signing this I certify the plan of care. Physicians Signature Date 16-Dec-2016 Wrist min 3 Views Result: Comments: See Note; NOTES: [facility] Imaging Services [address] [place] [address] Verda 4d Wrist min 3 Views MR#: [id number] Acct: [id number] Name: SIMRAN WALDROP Rep #: [id number] : 1940 F 76 From: Rodney Peace MD PCP: Halle New MD Status: REG CLI Study: Wrist min 3 Views Date of Exam: 12/16/16 Exam# [id number] Ordering Dr: Halle New MD STUD Y: [...] at 23:42 EST Tel , Service support [phone], Fax CC: Halle New MD Skiing Teacher: Signed 12-Nov-2016 Bilat Scrn Digital AND CAD Result: Comments: See Note; NOTES: [facility] Imaging Services [address] [place] [address] Verdana 4d Bilat Scrn Digital AND CAD MR#: [id number] Acct: [id number] Name: SIMRAN WALDROP Rep #: [id number] : 1940 F 76 From: Jonny Martínez MD PCP: Halle New MD Status: REG CLI Study: Bilat Scrn Digital AND CAD Date of Exam: 11/12/16 Exam# [id number] Ordering Dr: Halle New MD MAMMOGRAPHY - [...] delay biopsy of a clinically suspicious abnormality. [id number] Electronically Signed: Jonny Martínez MD at 13:52 EST Tel [phone], Service support [phone], CC: Halle New MD Skiing Teacher: Signed 12-Nov-2016 Dexa Bone Density/Append Skel Result: Comments: See Note; NOTES: [facility] Imaging Services [address] [place] [address] Verdana 4d Dexa Bone Density/Append Skel MR#: [id number] Acct: [id number] Name: PALMACHUCK Rep #: [id number] : 1940 F 76 From: Jonny Martínez MD PCP: Halle New MD Status: REG CLI Study: Dexa Bone Density/Append Skel Date of Exam: 11/12/16 Exam# [id number] Ordering Dr: Halle Terry MD STUDY: DUAL [...] Jonny Martínez MD at 12:53 EST Tel [phone], Service support [phone], CC : Halle New MD Skiing Teacher: Signed Family History Unknown Family Member Name Dates Details Brother 1 Comments: melanoma Status: Active Daughter 1 Comments: older biz[employer] administrator in [place] local Status: Active Daughter 2 Comments: teacher theater arts [place] Status: Active Father Comments: mid 70's old [...] smoker Vital Signs Date Test Result Details 13-Iav-926271:24 Temperature 97.8 f Comments: Method: Temporal Pulse 90 /min Comments: Pattern: Regular Respiration Rate 20 /min Comments: Pattern: Unlabored O2 SAT 95 % Comments: Room air BP Systolic 120 mm[Hg] Comments: Patient Position: Sitting BP Diastolic 80 mm[Hg] Comments: Patient Position: Sitting Weight 182 lb Height 58 in Body Mass Index Calculated 38.04 kg/m2 Body Surface Area Calculated 1.75 m2 66-Tuu-855369:47 Temperature 97.6 f Comments: Method: Temporal Pulse [...] kg/m2 Body Surface Area Calculated 1.75 m2 26-Vum-841043:39 Weight 182 lb Height 58 in Body [...] kg/m2 Body Surface Area Calculated 1.8 m2 1-Fwg-072047:23 Temperature 95 f Comments: Method: Oral Pulse 74 /min Comments: Pattern: Regular Respiration Rate 16 /min BP Systolic 122 mm[Hg] Comments: Patient Position: Sitting BP Diastolic 78 mm[Hg] Comments: Patient Position: Sitting Weight 192 lb Height 59 in Body Mass Index Calculated 38.78 kg/m2 Body Surface Area Calculated 1.81 m2 Results Date Description Value Details :28 Urinalysis, Office (97867) UA - LEUKOCYTE ESTERASE Large (Normal) UA - NITRITE Negative (Normal) URINE UROBILINGN HANY TIMED Normal mg/dL (Normal) UA - PROTEIN Negative mg/dL (Normal) UA - PH 5 (Abnormal) UA - BLOOD Negative (Normal) UA - SPECIFIC GRAVITY 1.030 (Abnormal) UA - KETONES Negative mg/dL (Normal) UA - BILIRUBIN Negative (Normal) UA - GLUCOSE Negative (Normal) 36-Ffk-969603:46 Methymalonic Acid, Serum Comments: PATIENT NOT FASTINGPERFORMED BY: [address] [id number] BY: LabWanxue EducationClara Maass Medical CenterUjjcqj3441 [facility] [id number] (09607) Methylmalonic Acid, Serum 165 nmol/L (Normal) Range: 0-378 Comments: This test was developed and its performance characteristicsdetermined by [facility]. It has not been cleared or approvedby the Food and Drug Administration. 74-Eyn-155310:46 Vitamin B-12 Comments: PATIENT NOT FASTINGPERFORMED BY: [facility] Ruxxjyimyu2463 [facility] [id number] BY: [facility]6370 [facility] [id number] (cyanocobalamin) (10181) Vitamin B12 472 pg/mL (Normal) Range: 232-1245 29-Jan-20189:29 CBC With Differential/Platelet Comments: PATIENT NOT FASTINGPERFORMED BY: [place] [address] [facility] [id number] BY: LabClinton Ville 476567 [facility] [id number] Information: nurse draw Immature Grans (Abs) 0.0 [...] 3.77-5.28 WBC 8.6 {x10E3/uL} (Normal) Range: 3.4-10.8 :29 Comp. Metabolic Panel (14) Comments: PATIENT NOT FASTINGPERFORMED BY: CDB [employer] [address] [facility] [id number] BY: [address] [id number] ALT (SGPT) 19 [iU]/L (Normal) Range: 0-32 [...] 406 nmol/L Comments: PATIENT NOT FASTINGPERFORMED BY: haku70 [facility] [id number] BY: [address] [id number] 29 Serum (Abnormal) Range: 0-378 : Vitamin B12 346 pg/mL (Normal) Comments: PATIENT NOT FASTINGPERFORMED BY: 3dimClara Maass Medical CenterBmelin5310 [facility] [id number] BY: LabResearch [facility] Center1447 [facility] [id number] 29 Range: 232-1245 59-Pyc-401324:46 FLU A+B DIRECT AG, (RAPID) (49793) FLU A+B DIRECT AG, (RAPID) positive a (Normal) :59 HgA1C , Office (77783) HgA1C , Office 6.1 % (Normal) Range: 4.6 - 7.1 :45 HgA1C , Office (78644) HgA1C , Office 5.8 % (Normal) Range: 4.6 - 7.1 :45 Blood Glucose , Office (67631) Blood Glucose , Office 103 (Normal) 93-Rgu-818861:22 CALCIFIDIOL (16022) VIT D Comments: PATIENT WAS FASTINGPERFORMED BY: LabWanx[employer] Education[address] [id number] BY: 3dimClara Maass Medical CenterPwqshz6825 [facility] [id number] 25 Vitamin D, 25-Hydroxy 36.9 ng/mL (Normal) Range: 30.0-100.0 Comments: Vitamin D deficiency has been defined by the [place] of[place] and an Endocrine Society practice guideline as alevel of serum 25-OH vitamin D less than 20 ng/mL (1,2).The Endocrine Society went on to further define vitamin Dinsufficiency as a level between 21 and 29 ng/mL (2).1. IOM ([place] of Medicine). 2010. Dietary reference intakes for calcium and D. [place]: The National Academies Press.2. Delmis MF, Romy BRITTON, Yoandy ASHBY, et al. Evaluation, treatment, and prevention of vitamin D deficiency: an Endocrine Society clinical practice guideline. JCEM. 2010; 96(7):1911-30. 69-Emv-141018:22 MICROALBUMIN: CREATININE Comments: PATIENT WAS FASTINGPERFORMED BY: 3dimAshley [place] 025987 [facility] [id number] BY: 3dimClara Maass Medical CenterYudjlb0156 [facility] [id number] RATIO (11452) AND (43959) Microalb/Creat Ratio 8.2 {mg/g_creat} (Normal) Range: 0.0-30.0 Microalbumin, Urine 7.0 ug/mL (Normal) Creatinine, Urine 85.3 mg/dL (Normal) 06-Qyu-619065:22 METABOLIC PANEL, Comments: PATIENT WAS FASTINGPERFORMED BY: 3dimAshley [place] 025987 [facility] [id number] BY: 3dimClara Maass Medical CenterRcugll9565 [facility] [id number] COMPREHENSIVE (68603) ALT (SGPT) 26 [iU]/L (Normal) Range: 0-32 [...] Glucose, Serum 95 mg/dL (Normal) Range: 65-99 30-Ikk-139187:22 LIPOPROTEIN, ERICH, BY NMR Comments: PATIENT WAS FASTINGPERFORMED BY: BN [facility] Fqroxpcfkx6809 [facility] [id number] BY: CB [facility] Zxcxib0690 [facility] [id number] (67069) LP-IR Score 72 (Abnormal) Comments: INSULIN RESISTANCE MARKER <--Insulin Sensitive Insulin Resistant--> Percentile in Reference PopulationInsulin Resistance ScoreLP-IR Score Low 25th 50th 75th High <27 27 45 63 >63LP-IR Score is inaccurate if patient is non-fasting. .The LP-IR score is a laboratory developed i [facility] that has beenassociated with insulin resistance and [...] were developed and their performance characteristicsdetermined by [employer]. These assays have not been cleared by [...] 1600 - 2000 Very High > 2000 76-Vxy-058732:22 CBC, Platelets & Auto Comments: PATIENT WAS FASTINGPERFORMED BY: BN [facility] [address] [id number] BY: CB [facility] Dhuooi6780 [facility] [id number]; fu 8-31 Diff (14356) Immature Grans (Abs) 0.0 {x10E3/uL} (Normal) Range: [...] 3.77-5.28 WBC 10.7 {x10E3/uL} (Normal) Range: 3.4-10.8 :12 HgA1C , Office (78698) HgA1C , Office 5.9 % (Normal) Range: 4.6 - 7.1 94-Wdj-725687:01 Microscopic Examination Comments: PATIENT NOT FASTINGPERFORMED BY: CDB [employer] Bhcsen5776 [facility] [id number] Bacteria Few (Normal) Mucus Threads Present (Normal) Crystal Type Calcium Oxalate (Normal) Crystals Present (Abnormal) Cast Type Hyaline casts (Normal) Casts Present {/lpf} (Abnormal) Epithelial Cells (non renal) 0-10 {/hpf} (Normal) Range: 0 - 10 RBC 0-2 {/hpf} (Normal) Range: 0 - 2 WBC 6-10 {/hpf} (Abnormal) Range: 0 - 5 20-Exr-265976:01 Protein Electro, Random Urine Comments: PATIENT NOT FASTINGPERFORMED BY: 3dimClara Maass Medical CenterHkqxsc4309 [facility] [id number] Please note: SPRCS (Normal) Comments: Protein electrophoresis scan will follow via computer, mail, orcourier delivery. M-Cristian, % Not Observed % (Normal) Gamma Globulin, U 22.7 % (Normal) Beta Globulin, U 37.8 % (Normal) Llrpf-9-Dmpyxmif, U 13.4 % (Normal) Nkfdz-4-Odtvbnzw, U 2.1 % (Normal) Albumin, U 23.9 % (Normal) Protein,Total,Urine 12.6 mg/dL (Normal) 73-Ysn-674835:01 Urinalysis, Routine Comments: PATIENT NOT FASTINGPERFORMED BY: 3dimClara Maass Medical CenterLgimhb2133 [facility] [id number] Information: SRC:UC Microscopic Examination See below: (Normal) Comments: Microscopic was indicated and was performed. Nitrite, Urine Negative (Normal) Urobilinogen,Semi-Qn 0.2 mg/dL (Normal) Range: 0.2-1.0 Bilirubin Negative (Normal) Occult Blood Negative (Normal) Ketones Negative (Normal) Glucose Negative (Normal) Protein Negative (Normal) WBC Esterase 1+ (Abnormal) Appearance Cloudy (Abnormal) Urine-Color Yellow (Normal) pH 6.0 (Normal) Range: 5.0-7.5 Specific [place] 1.024 (Normal) Range: 1.005-1.030 :01 Urine Culture,Comprehensive Comments: PATIENT NOT FASTINGPERFORMED BY: Titan MedicalSteven Ville 6338270 [facility] [id number] Result 1 MUG (Normal) Comments: Mixed urogenital flora25,000-50,000 colony forming units per mL Urine Final report (Normal) Culture,Comprehensive 37-Ywi-420698:51 MICROALBUMIN: CREATININE Comments: PATIENT NOT FASTINGPERFORMED BY: Titan MedicalSteven V[place] 6338270 [facility] [id number] BY: [address] [id number] RATIO (40812) AND (30202) Microalb/Creat Ratio 4.4 {mg/g_creat} (Normal) Range: 0.0-30.0 Microalbumin, Urine 13.9 ug/mL (Normal) Creatinine, Urine 315.6 mg/dL (Normal) 40-Uzb-042616:51 CBC with auto diff Comments: PATIENT NOT FASTINGPERFORMED BY: [place] 9616570 [facility] [id number] BY: [facility] [id number] (50022) Immature Grans (Abs) 0.0 {x10E3/uL} (Normal) Range: [...] 3.77-5.28 WBC 10.9 {x10E3/uL} (Abnormal) Range: 3.4-10.8 76-Tjk-969468:51 SPEP (99731) Comments: PATIENT NOT FASTINGPERFORMED BY: CB [facility] Bbcnqa9511 [facility] [id number] BY: BN [facility] [address] [id number] Please note: SPRCS (Normal) Comments: Protein electrophoresis scan will follow via computer, mail, orcourier delivery. A/G Ratio 1.1 (Normal) Range: 0.7-1.7 Globulin, Total 3.6 g/dL (Normal) Range: 2.2-3.9 M-Cristian Not Observed g/dL (Normal) Gamma Globulin 1.0 g/dL (Normal) Range: 0.4-1.8 Beta Globulin 1.3 g/dL (Normal) Range: 0.7-1.3 Ndvds-2-Xkuvxtvt 1.1 g/dL (Abnormal) Range: 0.4-1.0 Icxjr-5-Moqiohoc 0.2 g/dL (Normal) Range: 0.0-0.4 Albumin 3.8 g/dL (Normal) Range: 2.9-4.4 Protein, Total, Serum 7.4 g/dL (Normal) Range: 6.0-8.5 15-Exk-078795:51 Sed Rate Erythrocyte Comments: PATIENT NOT FASTINGPERFORMED BY: 3dim Egrpvn8993 [facility] [id number] BY: [address] [id number] (80696) Sedimentation Rate-Westergren 16 mm/h (Normal) Range: 0-40 66-Rss-709864:51 Methymalonic Acid, Serum Comments: PATIENT NOT FASTINGPERFORMED BY: [employer] Foozit0906 [facility] [id number] BY: [facility] [id number] (06990) Methylmalonic Acid, Serum 350 nmol/L (Normal) Range: 0-378 20-Djs-044453:51 Vitamin B-12 Comments: PATIENT NOT FASTINGPERFORMED BY: 3dimJohn [place] 5[address]0170 [facility] [id number] BY: [facility] [id number] (cyanocobalamin) (70053) Vitamin B12 351 pg/mL (Normal) Range: 211-946 46-Kpf-559335:48 URINE LIANET CULTURE-IDENTIFICATN Comments: PATIENT NOT FASTINGPERFORMED BY: [facility] [id number] Information: SRC:UC (22402) Result 1 MUG (Normal) Comments: Mixed urogenital flora10,000-25,000 colony forming units per mL Urine Final report (Normal) Culture,Comprehensive 52-Lwl-554655:20 Urinalysis, Office (83089) UA - LEUKOCYTE ESTERASE Negative (Normal) UA - NITRITE Negative (Normal) URINE UROBILINGN HANY TIMED Normal mg/dL (Normal) UA - PROTEIN Negative mg/dL (Normal) UA - PH 5 (Abnormal) UA - BLOOD Negative (Normal) UA - SPECIFIC GRAVITY 1.025 (Normal) UA - KETONES Negative mg/dL (Normal) UA - BILIRUBIN Small (Normal) UA - GLUCOSE Negative (Normal) :53 URINE LIANET CULTURE-IDENTIFICATN Comments: PATIENT NOT FASTINGPERFORMED BY: [facility] Pqgccq5499 [facility] [id number] Information: SRC:COLE (27876) Antimicrobial MIHEAD (Normal) Comments: S = Susceptible; [...] per mL Urine Final report Culture,Comprehensive (Abnormal) :41 HgA1C , Office (31025) HgA1C , Office 6.7 % (Normal) Range: 4.6 - 7.1 :41 Urinalysis, Office (00502) UA - LEUKOCYTE ESTERASE Moderate (Normal) UA [...] without complication) Planned Observations Sed Rate Erythrocyte (23578)Indication: Palpitation On: :51 Request CBC (Auto) (49327)Indication: Palpitation On: :51 Request Metabolic Panel, Comprehensive (13861)Indication: Palpitation On: :51 Request Troponin I (02189)Indication: Chest discomfort On: :51 Request BNTP (94686)Indication: Palpitation On: 56-Ogf-562795:51 Request URINE LIANET CULTURE-IDENTIFICATN (32172)Indication: Lumbago On: 91-Wwj-905437:28 Request Methymalonic Acid, Serum (01576)Indication: Fatigue On: :04 Request Vitamin B-12 (cyanocobalamin) (26900)Indication: Fatigue On: :04 Request MICROALBUMIN: CREATININE RATIO (31355) AND (13614)Indication: Essential hypertension On: 23-Uwj-458742:39 Request URINALYSIS (08053)Indication: Essential hypertension On: 01-Ato-404801:39 Request Metabolic Panel, Comprehensive (36820)Indication: Essential hypertension On: :39 Request CBC WITH MANUAL DIFF (94502)Indication: Essential hypertension On: 58-Acx-964862:39 Request UPEP (17758)Indication: Chronic back pain, unspecified back location, unspecified back pain laterality On: 00-Yix-962568:43 Request URINE LIANET CULTURE-IDENTIFICATN (51660)Indication: UTI (urinary tract infection) On: 73-Kng-63379:49 Request Comments: re check after ATB URINALYSIS (04605)Indication: UTI (urinary tract infection) On: :49 Request Planned Procedures XR SACRUM AND COCCYX, 3 VIEWS On: 11-Oct-2018 Intent (47465)By: Halle New MD, MD, Dana M EKG (78995)By: Halle New MD On: 11-Oct-2018 Intent Halle New MD Comments: see scanned document of test done to see results reviewed today with patient DRAIN/INJECT INTERMED JOINT/BURSA On: 22-Jul-2018 Intent ()By: Halle New MD Comments: right hip 2 cc marcaine lot# [id number] 1 cc Kenalog [id number] exp given by Halle Shannon MD INJECTION, VITAMIN B-12 On: 16-Jul-2018 Intent CYANOCOBALAMIN, UP TO 1000 MCG Comments: lot:[id number]:01/2020rte:IM left deltoid dose:1ml given by:joycelyn Sy LPN (Special Coverage Instructions Apply. See CIM: 45-4 and MCM: 2048) (J3420)By: Halle New MD, MD, Dana M B 12 Injection, 1000 mcg (J3420)By: On: 02-Jul-2018 Intent Visit, Nurse Comments: 5859927.ml, 1000mcgR dltd, IMMLONG B 12 Injection, 1000 mcg (J3420)By: On: 21-Jun-2018 Intent Visit, Nurse Comments: Lot #[id number]-4/2019Site-R arm, dltd. Dose-prefilled syringegiven by:RAFAEL GilletteVIS signed B 12 Injection, 1000 mcg (J3420)By: On: 06-May-2018 Intent Halle New MD, MD, Dana M B 12 Injection, 1000 mcg (J3420)By: On: 16-Apr-2018 Intent Halle New MD, MD, Dana Comments: lot: [id number]: 08/18site/route: L del/IMamt: 1mLVIS signed when applicableOFELIA Ricks PHARMACOLOGIC STRESS GATED CARDIAC On: 09-Apr-2018 Intent BLOOD POOL IMAGING (22464)By: MARY KAY Darnell B 12 Injection, 1000 mcg (J3420)By: On: 02-Apr-2018 Intent Halle New MD, MD, Dana Comments: Vitamin b12 1000mcg injection lot:[id number]:08/2019R DELT IMpt tolerated well MSMITH,IMMIGRATION SERVICES OFFICER M B 12 Injection, 1000 mcg (J3420)By: On: 18-Mar-2018 Intent Halle New MD, MD, Dana Comments: Vitamin b12 1000mcg injection lot:[id number]:08/2019L DELT IMpt tolerated well MSMITH,IMMIGRATION SERVICES OFFICER M B 12 Injection, 1000 mcg (J3420)By: On: 09-Mar-2018 Intent Halle New MD, MD, Dana Comments: lot:[id number]:08/2019rte:IM right deltoid dose:1 ml given by: RAFAEL Ortiz SPECT MUGA (17700)By: Shaq VAUGHAN, On: 09-Mar-2018 Intent Halle Leon MD Comments: do at [facility] SCREENING DIGITAL TOMOSYNTHESIS OF On: 05-Nov-2017 Intent BREAST (69412)By: Halle New MD, MD, Dana M Radiology - Wrist - RightBy: On: 16-Dec-2016 Intent Halle New MD, MD, Dana M DEXA SCAN AXIAL SKELETON (48815)By: On: 03-Oct-2016 Intent Halle New MD, MD, Dana M MAMMOGRAM, SCREENING, BOTH BREAST On: 03-Oct-2016 Intent (67016)By: Halle New MD, MD, Dana M Planned Medications Vitamin B-12 1000 MCG/ML Injection Solution Ordered: 09-Mar-2018 Pending Halle New MD, MD, Dana M Vitamin B-12 1000 MCG/ML Injection Solution Ordered: 18-Mar-2018 Pending Shaq VAUGHAN, Halle New MD, Halle Horta Vitamin B-12 1000 MCG/ML Injection Solution Ordered: 02-Apr-2018 Pending Shaq VAUGHAN, Halle New MD, Halle Horta Vitamin B-12 1000 MCG/ML Injection Solution Ordered: 16-Apr-2018 Pending Shaq VAUGHAN, Halle New MD, Halle Horta Vitamin B-12 1000 MCG/ML Injection Solution Ordered: 06-May-2018 Pending Shaq VAUGHAN, Halle New MD, Halle Horta Vitamin B-12 1000 MCG/ML Injection Solution Ordered: 21-Jun-2018 Pending Visit, Nurse Vitamin B-12 1000 MCG/ML Injection Solution Ordered: 02-Jul-2018 Pending Visit, Nurse Vitamin B-12 1000 MCG/ML Injection Solution Ordered: 16-Jul-2018 Pending Shaq VAUGHAN, Halle New MD, Halle Horta Instructions Name Dates Details Lumbago : How [...] The patient does have durable power of patent prosecution attorney and living will. The patient has noticed lack of energy. Other providers contributing to the patient's care are van owner operator (Dr. Raya ), gastrologist ([facility] [place] ) and other: (Opthalm: Dr. Beasley ??Dentist: Dr. Ramos).Encounter Diagnosis: BMI 37.0-37.9, adult, [...] End: 12-Nov-2016 14:48 steven (cold related? before thanksgi).Encounter Diagnosis: BMI 35.0-35.9,adult, Nonsmoker, Nocturia, UTI (urinary tract infection), History of nephrolithiasis [facility] Lab Order On: 21-Oct-2016 8:49 Encounter Diagnosis: UTI (urinary tract infection) End: 21-Oct-2016 8:50 [facility] Phone Encounter On: 20-Oct-2016 14:34 Encounter Diagnosis: UTI (urinary tract infection) [...]
--- OUTSIDE RECORDS SUMMARY | 2018-12-28 18:35 | XMS RPT_ITS ---
:1940 Author Organization OHIP Care Team Providers Name Role Phone SAMANTHA VIZCAINO, DR. MILLAN Attending Unavailable SAMANTHA VIZCAINO, DR. MILLAN Primary Care Unavailable SAMANTHA VIZCAINO, DR. MILLAN Attending Unavailable SAMANTHA VIZCAINO, DR. MILLAN Primary Care Unavailable SAMANTHA VIZCAINO, DR. MILLAN Attending Unavailable SAMANTHA VIZCAINO, DR. MILLAN Primary Care Unavailable GENE HENRY Attending Unavailable SAMANTHA VIZCAINO, DR. MILLAN Primary Care Unavailable Halle New MD Attending Unavailable Samantha VAUGHAN, Halle Horta Referring Unavailable Samantha VAUGHAN, Halle Horta Consulting Unavailable Gene Henry Attending Unavailable Gene Henry Referring Unavailable Halle New Primary Care Unavailable Halle New Attending Unavailable Halle New Primary Care Unavailable Samantha, Halle Referring Unavailable Gene Henry Attending Unavailable Gene Henry Referring Unavailable Samantha, Halle Primary Care Unavailable PROBLEMS PROBLEMS DATE TYPE CONDITION / CODE ATTENDING STATUS SOURCE 11/12/2018 Unknown N20.0 - Calculus Gene Henry Active [place] of kidney / Community N20.0(ICD-10) Hospital Repository 01/06/2018 Unknown Z12.31 - Halle New Active [place] [facility] [place] malignant neoplasm of breast / Z12.31(ICD-10) PROCEDURES PROCEDURES No Procedure Records FoundRESULTS RESULTS ABDOMEN SINGLE VIEW Observed: 12/03/2018 Status: F Source: [place] 9:26 AM [facility] HOSPITAL REPOSITORY [facility] Imaging Services [address] [place] [address] Abdomen Single View MR#: [id number] Acct: [id number] Name: SIMRAN WALDROP Rep #: [id number] : 1940 F 78 From: Quinn Johnson MD PCP: Halle New MD Status: REG CLI Study: Abdomen Single View Date of Exam: 12/03/18 Exam# [id number] Ordering Dr: Gene Henry MD STUDY: X-RAY - ABDOMEN/PELVIS REASON FOR EXAM: Female, 78 years old. Renal calculus TECHNIQUE: Two AP supine views of the abdomen and pelvis. COMPARISON: None. FINDINGS: Normal visualized lung bases. There is an unremarkable bowel gas pattern. There is no demonstrated free abdominal air. The visualized liver, spleen and kidneys are grossly normal in size and morphology. There are calcified phleboliths in the pelvis. There are diffuse degenerative changes of the visualized lumbar spine. RAD/Abdomen Single View IMPRESSION: 1. No suspicious intra-abdominal calcifications although renal shadows are partially obscured by overlying bowel contents. Electronically Signed: Quinn Johnson MD at 7:20 EST , Service support , CC: Halle New MD; Gene Henry MD Seat Installer: Signed BEDSIDE GLUCOSE Collected: 11/12/2018 Status: F Source: [place] 10:05 AM [facility] REPOSITORY TYPE CODE TESTS RESULT OUT OF RANGE REFERENCE UNITS LAB L501.080 70-110 mg/dL Normal BEDSIDE GLU 88 Result Comment: MANAGEMENT OF PATIENT CARE PER NURSING PROTOCOL Performed By: #### L501.080 #### [facility] Laboratory Point of Care [address] [place] [address] OPERATIVE REPORT Observed: 11/12/2018 Status: F Source: [place] 9:54 AM [facility] REPOSITORY [facility] Medical Records Department [address] [place] [address] Operative Report 11/12/18 0952 MR#: [id number] Acct: [id number] Name: SIMRAN WALDROP Rep #: [id number] : 1940 78 From: Gene Henry MD PCP: Halle New MD Status: [facility] Y Location: [place] [address] Problem List (1) Renal calculus, left Status: Acute Report of Operation Date of Procedure: 11/12/18 Pre-Operative Diagnosis: left renal calculus Post-Operative Diagnosis: same Surgery/Procedure Performed:: left extracorporeal shockwave lithotripsy Description of Surgical Findings:: no complications, stone appears well fragmented urban sociologist: Gene Henry Type of Anesthesia:: General Specimen's removed: none Estimated Blood Loss (mL): 2cc Description of Procedure: The patient is a 78-year-old female was found to have a left renal calculus as a source of microhematuria. After discussing all the risks benefits and alternatives she agreed to proceed with shockwave lithotripsy as treatment for her stone. The patient was taken to the operating room and placed in a supine position on the operating room table. All dependent portions of her body were appropriately padded. Anesthesia monitored the head, neck, airway, IV access and vital signs throughout the case. Once anesthesia was appropriately administered the left renal calculus was identified with fluoroscopy. It was appropriately aligned with a lithotripter and 3000 shocks were applied to this area. The stone appeared to be well fragmented at the conclusion of the case. There were no complications during this procedure. Patient was awakened and taken to the recovery room in good condition. Grafts/Implants Used: none - Complications none - Admit VTE Documentation VTE Present on Admission: Yes VTE Mechan Device Prophylaxis: SCD's VTE Pharm Prophylaxis ordered?: No Reason prophylaxis not ordered:: Treatment Not Indicated 11/12/1854 <Electronically signed by Gene Henry MD> Date Gene Henry MD CC: Halle New MD; Gene Henry MD Signed DISCHARGE INSTRUCTION Observed: 11/12/2018 Status: F Source: [place] 8:15 AM [facility] Medical Records Department [address] [place] [address] Instructions for Home/Discharge Instructions 11/12/18812 MR#: [id number] Acct: [id number] Name: SIMRAN WALDROP Rep #: [id number] : 1940 78 From: Gene Henry MD PCP: Halle New MD Status: [place] [facility] [place] Diet: No Restrictions Discharge Activity: May not drive while taking narcotic pain medications., May Shower May resume sexual activity in: No Restrictions Call your doctor if you observe: Fever of 101 or Higher, Inability to urinate, Inability to have a bowel movement, Shortness of breath, Chest pain, Calf discomfort, Uncontrolled pain Allergies/Adverse Reactions: Allergies chlorpromazine [From Thorazine] Adverse Reaction (Verified 11/09/18 10:39) Itching lisinopril Adverse Reaction (Verified 11/09/18 10:39) COUGH prochlorperazine [From Compazine] Adverse Reaction (Verified 11/09/18 10:39) Itching Medications to take at Discharge Amlodipine [Norvasc] 10 mg PO DAILY 11/09/18 Aspirin E.C. [Ecotrin] 81 mg PO DAILY@0800 11/09/18 Atorvastatin Calcium [Lipitor] 40 mg PO QHS 11/09/18 Calcium (Elemental) [Os-Henrique 500] 500 mg PO DAILY@0800 11/09/18 Carvedilol [Coreg ([place])] 25 mg PO BID 11/09/18 Exenatide Microspheres [Bydureon Pen] 2 mg SQ SA 11/09/18 Fesoterodine Fumarate [Toviaz] 4 mg PO DAILY 11/09/18 Losartan Potassium [Cozaar] 100 mg PO QHS 11/09/18 Multivitamins,Therapeutic [Multivitamin] 1 tablet PO DAILY 11/09/18 Spironolactone [Aldactone] 25 mg PO DAILY 11/09/18 Cephalexin [Keflex] 500 mg PO Q12 3 Days #6 cap 11/12/18 Oxycodone HCl/Acetaminophen [Percocet 5/325] 1 - 2 tab PO Q6H PRN PRN 7 Days #30 tab 11/12/18 The following prescriptions were given: Oxycodone HCl/Acetaminophen [Percocet 5/325] 1 - 2 tab PO Q6H PRN PRN 7 Days #30 tab PRN Reason: Pain Cephalexin [Keflex] 500 mg PO Q12 3 Days #6 cap Primary Care Physician: Halle New MD [Primary Care Provider] - Test Results: Test results from this visit will be discussed in further detail at your follow-up appointment, if applicable. Please Follow Up With: Gene eHnry MD When: 2-3 weeks with [facility], call office for appt Proposed Discharge Date: 11/12/18 11/12/18 0815 <Electronically signed by Gene Henry MD> Date Gene Henry MD CC: Halle New MD BEDSIDE GLUCOSE Collected: 11/12/2018 Status: F Source: [place] 7:15 AM [facility] REPOSITORY TYPE CODE TESTS RESULT OUT OF REFERENCE UNITS RANGE LAB L501.080 70-110 mg/dL High BEDSIDE GLU 112 Result Comment: MANAGEMENT OF PATIENT CARE PER NURSING PROTOCOL Performed By: #### L501.080 #### [facility] Laboratory Point of Care [address] [place] [address] CT ABD/PELVIS W/ IV Observed: 10/22/2018 Status: F Source: [place] CONTRAST ONLY 10:00 AM [facility] REPOSITORY ORIGINAL CT ABD/PELVIS W/ IV CONTRAST ONLY CLINICAL STATEMENT: HEMATURIA COMPARISON: CT of the abdomen and pelvis dated 02/23/2003 FINDINGS: The lung bases are clear. The heart is enlarged. No suspicious liver lesion is identified. The gallbladder is unremarkable. The spleen and pancreas are normal in appearance. The adrenal glands are normal in configuration. A small RIGHT renal cyst is identified. A 9.8 mm calculus is seen within the LEFT renal pelvis. There is mild dilatation of the LEFT renal collecting syst em. No additional ureteral calculi are identified. Calcified plaque is seen within the aorta which is normal in caliber. No retroperitoneal mass or adenopathy is identified. The urinary bladder is poorly distended. There is no evidence of a bowel obstruction. Multiple diverticula are seen within the sigmoid colon with no evidence of an acute diverticulitis. The appendix is unremarkable. Degenerative changes are se en within the spine. No suspicious osseous lesion is identified. IMPRESSION:A 9.8 mm calculus is seen within the LEFT renal pelvis. This does not appear to be causing obstruction. However, there is minimal dilatation of the LEFT collecting system. This exam was performed according to our departmental dose optimization program, and includes the following measures where applicable: automated exposure control, adjustment of the mAs and/or kVp accord ing to patient size and/or exam, and an iterative reconstruction algorithm. Interpreted By: Ann Lee MD Preliminary Report By: Ann Lee MD Electronically Signed By: Ann Lee MD Dictated Date: 10/22/2018 10:55:38 AM Prelim Date: 10/22/2018 10:55:38 AM Sign Date: 10/22/2018 11:02:35 AM XR SACRUM/COCCYX MINIMUM Observed: 10/13/2018 Status: F Source: [place] 2 VIEWS 1:32 PM [facility] REPOSITORY ORIGINAL XR SACRUM/COCCYX MINIMUM 2 VIEWS, 10/13/2018 1:48 PM INDICATION: coccygeal contusion COMPARISON: No FINDINGS: The study is somewhat limited by habitus. No acute fractures or dislocations are seen. The femoral heads appear unremarkable in appearance, and spaces of the hips are maintained. The soft tissues are unremarkable. IMPRESSION: Unremarkable examination of the sacrum and coccyx. Interpreted By: Raheem Blankenship MD Preliminary Report By: Raheem Blankenship MD Electronically Signed By: Raheem Blankenship MD Dictated Date: 10/13/2018 3:04:23 PM Prelim Date: 10/13/2018 3:04:23 PM Sign Date: 10/13/2018 3:05:57 PM Observed: 10/12/2018 Status: F Source: [facility] 9:19 AM [facility] REPOSITORY . MICRO - Microbiology PROCEDURE: Urine Culture [*1] SOURCE: Urine BODY SITE: COLLECTED DATE/TIME: 10/12/2018 09:19 EST RECEIVED DATE/TIME: 10/12/2018 14:39 EST START DATE/TIME: 10/12/2018 14:39 EST FREE TEXT SOURCE: FINAL REPORTS Final Report [] Verified Date/Time/Personnel: 10/14/2018 08:03 EST 5,000 organisms per mL Mixed without predominant isolate(s). Sensitivity Testing not indicated. Probably contamination. Repeat culture suggested. PRELIMINARY REPORTS Preliminary Report [] Verified Date/Time/Personnel: 10/13/2018 13:44 EST Culture results pending. Performing Locations *1: This test was performed at: [facility], [address] [place] [address], [address] [place] [address] Performed By: #### CUR #### [place] [address] TROP Collected: 10/12/2018 Status: F Source: [facility] 9:16 AM [facility] REPOSITORY TYPE CODE TESTS RESULT OUT OF REFERENCE UNITS RANGE LAB TROP(LOINC) 0.000-0.040 ng/mL Troponin <0.020 Result Comment: Troponin I reference range: 0.00-0.040 ng/mL Negative and non-diagnostic. >0.040 ng/mL Consistent with cardiac damage, increased clinical risk and possibility of myocardial infarction. Serial measurements, a rise & fall in test results, clinical history, appropriate symptoms and/or ECG changes may help assess possibility of SD. *Other non-acute coronary syndrome conditions such as CHF, myocarditis, pulmonary emboli, sepsis and cardiac surgery could result in myocardial damage and increased troponin levels. Performed By: #### TROP, PBNP, CMP, GFR, ESR #### [address] [address] #### CBC, ADIFF, ANEU #### [address] [address] PBNP Collected: 10/12/2018 Status: F Source: [facility] 9:16 AM [facility] REPOSITORY TYPE CODE TESTS RESULT OUT OF REFERENCE UNITS RANGE LAB PBNP(LOINC) 0-450 pg/mL N-Terminal 380 proBNP Result Comment: NT-proBNP results of less than 300 pg/mL effectively rules out acute congestive heart failure with 99% negative predictive value. Performed By: #### TROP, PBNP, CMP, GFR, ESR #### [place] [address] #### CBC, ADIFF, ANEU #### [address] [address] CBC Collected: 10/12/2018 Status: F Source: [facility] 9:16 AM [facility] REPOSITORY TYPE CODE TESTS RESULT OUT OF REFERENCE UNITS RANGE LAB WBC(LOINC) 4.60-10.80 10 3/mcL High WBC 11.70 LAB RBCCT(LOINC 4.20-5.40 10 6/mcL ) RBC 4.58 LAB HGB(LOINC) 12.0-16.0 G/dL Hgb 13.5 LAB HCT(LOINC) 37.0-47.0 % Hct 41.0 LAB MCV(LOINC) 80.0-94.0 fL MCV 89.5 LAB MCH(LOINC) 27.0-31.2 pg MCH 29.5 LAB MCHC(LOINC) 33.0-37.0 G/dL MCHC 33.0 LAB RDW(LOINC) 11.5-14.5 % High RDW 14.6 LAB PLT(LOINC) 130-400 10 3/mcL Platelet 319 LAB MPV(LOINC) 7.4-10.4 fL MPV 7.7 Performed By: #### TROP, PBNP, CMP, GFR, ESR #### [place] [address] #### CBC, ADIFF, ANEU #### [address] [address] .AUTO DIFF Collected: 10/12/2018 Status: F Source: [facility] 9:16 AM [facility] REPOSITORY TYPE CODE TESTS RESULT OUT OF REFERENCE UNITS RANGE LAB JUAN MANUEL(LOINC) 37.0-80.0 % Neutrophil % 64.5 LAB LYM(LOINC) 10.0-50.0 % Lymphocyte % 26.0 LAB MON(LOINC) 1.7-13.0 % Monocyte % 7.8 LAB EO(LOINC) 0.0-7.0 % Eosinophil % 1.0 LAB BAS(LOINC) 0.0-2.5 % Basophil % 0.7 LAB ABLYM(LOIN 0.77-3.85 10 3/mcL C) Lymphocyte, 3.00 Absolute LAB RAJESH(LOINC 0.15-1.00 10 3/mcL ) Monocyte, 0.90 Absolute LAB AEOS(LOINC 0.00-0.40 10 3/mcL ) Eosinophil, 0.10 Absolute LAB ABAS(LOINC 0.00-0.19 10 3/mcL ) Basophil, 0.10 Absolute Performed By: #### TROP, PBNP, CMP, GFR, ESR #### [place] [address] #### CBC, ADIFF, ANEU #### [address] [address] .NEUABS Collected: 10/12/2018 Status: F Source: [facility] 9:16 AM [facility] REPOSITORY TYPE CODE TESTS RESULT OUT OF REFERENCE UNITS RANGE LAB ANEU(LOINC) 2.85-6.16 10 3/mcL High Neutrophil, 7.50 Absolute Performed By: #### TROP, PBNP, CMP, GFR, ESR #### [place] [address] #### CBC, ADIFF, ANEU #### [address] [address] CMP Collected: 10/12/2018 Status: F Source: [facility] 9:16 AM [facility] REPOSITORY TYPE CODE TESTS RESULT OUT OF REFERENCE UNITS RANGE LAB GLU(LOINC) 83-110 mg/dL Glucose Level 102 LAB NA(LOINC) 136-145 mmol/L Sodium Level 140 LAB K(LOINC) 3.5-5.1 mmol/L Potassium Level 4.4 LAB CL(LOINC) 98-107 mmol/L Chloride 103 LAB CO2(LOINC) 23-31 mmol/L CO2 27 LAB EBAL(LOINC mEq/L ) Electrolyte Balance 10.0 LAB BUN(LOINC) 7-18 mg/dL BUN High 21 LAB CRE(LOINC) 0.55-1.02 mg/dL Creatinine Lvl (s) 0.81 LAB BC(LOINC) 7-27 ratio BUN/Creatinine 26 Ratio LAB CA(LOINC) 8.4-10.2 mg/dL Calcium Lvl 9.4 LAB PROT(LOINC 6.4-8.2 G/dL ) Total Protein 6.9 LAB ALB(LOINC) 3.4-4.8 G/dL Albumin Level 3.9 LAB GLB(LOINC) G/dL Globulin 3.0 LAB AG(LOINC) 1.1-2.5 ratio A/G Ratio 1.3 LAB BILT(LOINC 0.2-1.0 mg/dL ) Bili Total 0.5 LAB AP(LOINC) 40-135 U/L Alk Phos 105 LAB AST(LOINC) 10-40 U/L AST/SGOT 15 LAB ALT(LOINC) 10-35 U/L ALT/SGPT 32 Performed By: #### TROP, PBNP, CMP, GFR, ESR #### [address] [address] #### CBC, ADIFF, ANEU #### [address] [address] .GFR Collected: 10/12/2018 Status: F Source: [facility] 9:16 AM [facility] REPOSITORY TYPE CODE TESTS RESULT OUT OF REFERENCE UNITS RANGE LAB GFRAA(LOINC ml/min/1.73 ) sqm GFR 83 Bhutanese Result Comment: GFR Population mean for , Non- Americans Ages 20-29 = 116 mL/min/1.73 sq.m. Ages 30-39 = 107 mL/min/1.73 sq.m. Ages 40-49 = 99 mL/min/1.73 sq.m. Ages 50-59 = 93 mL/min/1.73 sq.m. Ages 60-69 = 85 mL/min/1.73 sq.m. Ages 70+ = 75 mL/min/1.73 sq.m. Chronic Kidney Disease: Less than 60 mL/min/1.73 square meters End Stage Renal Disease: Less than 15 mL/min/1.73 square meters LAB GFRNO(LOINC) ml/min/1.73sqm GFR Non- 69 Result Comment: GFR Population mean for , Non- Americans Ages 20-29 = 116 mL/min/1.73 sq.m. Ages 30-39 = 107 mL/min/1.73 sq.m. Ages 40-49 = 99 mL/min/1.73 sq.m. Ages 50-59 = 93 mL/min/1.73 sq.m. Ages 60-69 = 85 mL/min/1.73 sq.m. Ages 70+ = 75 mL/min/1.73 sq.m. Chronic Kidney Disease: Less than 60 mL/min/1.73 square meters End Stage Renal Disease: Less than 15 mL/min/1.73 square meters Performed By: #### TROP, PBNP, CMP, GFR, ESR #### [place] [address] #### CBC, ADIFF, ANEU #### [address] [address] ESR Collected: 10/12/2018 Status: F Source: [facility] 9:16 AM [facility] REPOSITORY TYPE CODE TESTS RESULT OUT OF REFERENCE UNITS RANGE LAB ESR(LOINC) 0-30 mm/hr Erythrocyte Sed Rate 22 Performed By: #### TROP, PBNP, CMP, GFR, ESR #### [place] [address] #### CBC, ADIFF, ANEU #### [address] [address] NM CARDIAC BLOOD Observed: 04/12/2018 Status: F Source: [facility] POOL GATED REST 9:30 AM [facility] REPOSITORY ORIGINAL NM CARDIAC BLOOD POOL GATED REST Radionuclide Gated Ventriculogram Clinical Statement: Dilated cardiomyopathy, increased fatigue Technique: Radiopharmaceutical: Tc 99m labeled RBCs IV, Dose: 19.8 mCi Preparation: In vitro labeling with Tc 99m SnCl Resting gated acquisitions in the best septal, anterior, right anterior oblique, and lateral positions Comparison Study: 12/05/2016, 04/25/2014 Report: Right ventricular contractility appears preserved. Scintigraphically, the left ventricle is mildly dilated, not significantly changed from prior exam. Mild global hypokinesis is present. Nonspec ific hypokinesis of the septal wall was present, unchanged. The calculated left ventricular ejection fraction is 37%, slightly decreased from 40%. IMPRESSION: The radionuclide gated ventriculogram demonstrates mild global hypokinesis, nonspecific hypokinetic septal wall, and dilated left ventricle. The LVEF is 37%, mildly decreased from 40% on prior examination. I have personally reviewed the images of this examination and agree with the resident's findings and interpretation. Interpreted By: Richi Tapia MD Preliminary Report By: Alejo Hernandez DO Electronically Signed By: Richi Tapia MD Dictated Date: 04/12/2018 11:16:39 AM Prelim Date: 04/12/2018 11:42:02 AM Sign Date: 04/12/2018 12:46:00 PM SCREENING MAMM (CAD), Observed: 01/06/2018 Status: F Source: [facility] 1:22 PM [facility] REPOSITORY [facility] Imaging Services [address] [place] [address] SCREENING MAMM (CAD), BILAT MR#: [id number] Acct: [id number] Name: SIMRAN WALDROP Rep #: [id number] : 1940 F 77 From: Jonny Martínez MD PCP: Halle New MD Status: REG CLI Study: SCREENING MAMM (CAD), BILAT Date of Exam: 01/06/18 Exam# [id number] Ordering Dr: Halle New MD MAMMOGRAPHY - BILATERAL SCREENING REASON FOR EXAM: Female, 77 years old. Routine annual screening examination. PERTINENT HISTORY: Non-contributory. TECHNIQUE: Digital bilateral breast emanuel (3D mammographic acquisition) in the CC and MLO projections. 2-D mediolateral oblique (MLO) and craniocaudad (CC) views of both breasts were obtained. CAD: Full Field Digital Mammography with Computer Added Detection was performed. COMPARISON: Comparison is made with prior study dated November 12, 2016 and April 04, 2015. FINDINGS: Breast Composition: There are scattered areas of fibroglandular density. There are no dominant masses or suspicious calcifications. Stable bilateral benign-appearing axillary lymph nodes. Stable bilateral calcified breast nodules with fibroadenomas. No other significant abnormalities are identified. There has been no significant change since the prior study. HPBI/SCREENING MAMM (CAD), BILAT IMPRESSION: Stable bilateral screening mammogram. Yearly follow-up mammogram recommended. (A) ASSESSMENT CATEGORY: BIRADS Category 2: Benign. A letter regarding these results will be sent to the patient by the facility within 30 days. Approximately 10% of breast cancers are not detected by mammography. A normal mammogram should not delay biopsy of a clinically suspicious abnormality. [id number] Electronically Signed: Jonny Martínez MD at 15:14 EST Tel [phone], Service support , CC: Halle New MD Seat Installer: Signed ALLERGIES ALLERGIES DATE TYPE / CODE NAME / CODE REACTION SEVERITY SOURCE 11/09/2018 Drug lisinopril/F cough Unknown [place] [facility] Allergy/4160 [id number](RX Hospital 19620(SNOMED NORM) Repository CT) 11/09/2018 Drug prochlorpera Itching Unknown [facility] Allergy/4160 zine/[id number] Hospital 74023(SNOMED 478(RXNORM) Repository CT) 11/09/2018 Drug chlorpromazi Itching Unknown [facility] Allergy/4160 ne/[id number] Hospital 13491(SNOMED 7(RXNORM) Repository CT) ENCOUNTERS ENCOUNTERS ADMIT/DISCHARGE ACCOUNT NUMBER ADMITTING ENCOUNTER LOCATION SOURCE CLASS 12/03/2018 [id number] Ambulatory [facility] ding:MTRAD Repository 11/12/2018/11/12/20 [id number] Ambulatory [address] ding:SDCRoom Repository : AC07 10/22/2018/10/22/20 [id number] Ambulatory BBuilding:RA Gonzalez [facility] Repository 10/13/2018/10/13/20 [id number] Ambulatory BBuilding:RA Carlos [address] [facility] Repository 10/12/2018/10/12/20 [id number] Ambulatory BBuilding:SHIREEN Gonzalez [facility] Repository 10/12/2018 [id number] Ambulatory Building:[facility] Repository 04/12/2018/04/12/20 [id number] Ambulatory [address] ding:[facility] Repository 01/06/2018 [id number] Ambulatory [facility] ding:BI Repository PAYERS PAYERS ENCOUNTER GUARANTOR PAYER SUBSCRIBER SOURCE 12/03/2018 SIMRAN D Primary SIMRAN D [place] [id number] Insurance:MACARIO CASEY: [facility] Number: [id number]71[facility]KEffective Repository [address]Jkz: ([phone]) Date:6970-11-35[phone] () [place], [place] [address]FO: 12/03/2018 Secondary NOT GIVENUNK [place] Insurance:SELF PAY [facility] Number: Effective Repository Date:2018-12-03 11/12/2018 SIMRAN D Primary SIMRAN D [place] [id number] Insurance:AECHERYL MARTINEZOB: [facility] Number: [id number] Health Medical CenterBD71PKEffective Repository [address]Ilc: [phone]) Date:2930-82-40[phone] () [place], [place] [address]HM: 11/12/2018 Secondary NOT GIVENUNK [place] Insurance:SELF PAY [facility] Number: Effective Repository Date:2018-10-29 10/22/2018 SIMRAN D [facility] Insurance:AETNA INESSAALEJANDRAOB: [facility] MEDICARE HMO [id number] Repository [facility] AMEPolicy Number: ANDREW CONNORS [facility]OSPITALVLMP94SFCvdqglsalStuarts Draft, [place] [address]Tgp: ([phone]) Date:2018-10-1566020Tbe: (HP) [id number] [phone] Name:LOLY Robb [id number] ()Tel: (000) LINDA Parham [phone] (WP) [phone]: 10/13/2018 SIMRAN D Primary [facility]AN [place] [facility] Insurance:AETNA INESSAALBERTOOB: [facility] MEDICARE HMO [id number] Repository [facility] AMEPolicy Number: ANDREW CONNORS [facility] CENTERSCEC09XPAdazcxphpStuarts Draft, [place] [address]Nwk: ([phone]) Date:2018-10-1319328Bwi: [id number] [phone] (HP)Tel: [phone]) Name:[facility] Clarisse [id number] () (WP) [place] [phone] (WP) [phone]: 10/12/2018 SIMRAN D Primary SIMRAN [place] [facility]: Insurance:AETNA CESARANDOB: [facility] MEDICARE HMO [id number] Repository [facility] AMEPolicy Number: ANDREW CONNORS [place] [id number] [place], [place] [address]Dzp: ([phone]) Date:2018-10-12 [id number]: [id number] [phone] (HP)Tel: [phone]) Name:NPO Clarisse [id number] (HP) (WP) LINDA Parham 000-0000 (WP) [phone]: 10/12/2018 SIMRAN D [facility]:[employer]et[employer] Life WALANDOB: Repository [facility]/MedicarePolicy [id number] [facility] Number: [place], [place]QL[place], [place] [address]Nce: ([phone]) Date:[id number] 277[address]Scd: Name:[facility] [phone] () (HP)Tel: [phone] LIDNA Parham [phone] () [phone]: 04/12/2018 SIMRAN D [facility] Insurance:AETNA ECSARANDOB: Foundation MEDICARE HMO [id number] Repository [facility] AMEPolicy Number: [place], [id number] [place], [place] [address]Pfq: (330) Date:2018-04-01 [address]Wnc: [id number] [phone] (HP)Tel: ([phone]) Name:[address] (HP) (WP) LINDA Parham 000-0000 (WP) [phone]: 01/06/2018 SIMRAN ORTEGA Primary SIMRANDONA Ramirez [facility] Insurance:AETNA CESARANDOB: [facility] Number: [id number] [address]Atp: [phone]) [id number] Repository [phone] (HP) Date:[id number] [id number] LINDA PARHAM [id number]: 01/06/2018 Secondary NOT GIVENUNK [place] Insurance:SELF PAY [facility] Number: Effective Repository Date:2017-11-05
== END 2018-11-12 12:26 | disposition home or self-care (01) ==
LOC: SDC 06:46 → AC 06:47
PROVIDERS: Family Provider Internal Medicine; PCP Internal Medicine; Referring Provider Urology; Visit Provider Urology
PROC: (CPT 50590; principal; 2018-11-12 08:05)
DX: N20.0 Calculus of kidney (principal); E11.9 Type 2 diabetes mellitus without complications; R32 Unspecified urinary incontinence; Z79.899 Other long term (current) drug therapy; Z79.82 Long term (current) use of aspirin; I10 Essential (primary) hypertension; Z87.891 Personal history of nicotine dependence
CPT/HCPCS: 50590; 82962; J7120; J2405

== ENCOUNTER → 2018-12-03 09:13 | Outpatient (CLI) | payer MEDICARE, SELFPAY ==
[2018-11-12 07:11] VITALS: BMI 36.4
--- NOTE | 2018-12-03 09:26 | RAD_ITS ---
STUDY: X-RAY - ABDOMEN/PELVIS REASON FOR EXAM: Female, 78 years old. Renal calculus TECHNIQUE: Two AP supine views of the abdomen and pelvis. COMPARISON: None. FINDINGS: Normal visualized lung bases. There is an unremarkable bowel gas pattern. There is no demonstrated free abdominal air. The visualized liver, spleen and kidneys are grossly normal in size and morphology. There are calcified phleboliths in the pelvis. There are diffuse degenerative changes of the visualized lumbar spine. RAD/Abdomen Single View IMPRESSION: 1. No suspicious intra-abdominal calcifications although renal shadows are partially obscured by overlying bowel contents. Electronically Signed: Quinn Johnson MD at 7:20 EST , Service support ,
== END ==
PROVIDERS: Family Provider Internal Medicine; PCP Internal Medicine; Referring Provider Urology; Visit Provider Urology
DX: N20.0 Calculus of kidney (principal)
CPT/HCPCS: 74018

== ENCOUNTER → 2019-04-22 | Outpatient (CLI) | payer MEDICARE, SELFPAY ==
[2018-11-12 07:11] VITALS: BMI 36.4
--- NOTE | 2019-04-22 13:43 | RAD_ITS ---
STUDY: X-RAY CHEST REASON FOR EXAM: Female, 79 years old. Chest pain TECHNIQUE: PA and lateral views of the chest. COMPARISON: None. FINDINGS: The lungs are clear and expanded. There is no demonstrated pleural abnormality. Normal size heart. Normal mediastinum and doreen. Normal visualized pulmonary arteries. There are calcified plaques of the aortic arch. Normal visualized thoracic spine. Normal visualized ribs, clavicles, and shoulders. There is no demonstrated abnormality of the visualized soft tissue structures of the upper abdomen. RAD/Chest PA and Lateral IMPRESSION: Calcified plaques of the aortic arch. No acute cardiopulmonary disease process is seen. Electronically Signed: Ed Boston MD at 21:40 EDT , Service support ,
== END | disposition home or self-care (01) ==
LOC: HPRAD 13:41
PROVIDERS: Family Provider Internal Medicine; PCP Internal Medicine; Referring Provider Internal Medicine; Visit Provider Internal Medicine
DX: R07.89 Other chest pain (principal)
CPT/HCPCS: 71046

== ENCOUNTER → 2019-05-23 | Outpatient (CLI) | payer MEDICARE, SELFPAY ==
[2018-11-12 07:11] VITALS: BMI 36.4
[2019-05-23 12:41] LABS: Absolute Lymphocyte Count 1.79 X10^3/ul (0.83-4.51); Absolute Neutrophil Count 9.6 X10^3/uL (2.0-7.7); Basophil# 0.02 X10^3/uL; Basophil% 0.2 % (0-1); Eosinophil# 0.08 X10^3/uL; Eosinophils% 0.6 % (0-5); Hematocrit 39.8 % (37-47); Hemoglobin 13.3 g/dl (12.0-15.0); Lymphocyte # 1.79 X10^3/ul (4.0); Lymphocyte % 14.4 % (19-41); Mean Corp Hgb Conc 33.4 g/gl (32-36); Mean Corpuscular Volume 89.6 fL (81-99); Mean Platelet Vol. 9.9 fl (6.2-12.0); Monocyte# 0.89 X10^3/uL; Monocyte% 7.2 % (0-10); Neutrophil # 9.63 X10^3/uL (2.7-7.7); Neutrophil % 77.4 % (47-70); Platelet Count 289 K/mm3 (150-450); RBC Distribution Width CV 13.9 % (11.6-14.6); RBC Distribution Width SD 45.6 fl (35.1-43.9); Red Blood Count 4.44 M/mm3 (4.2-5.4); White Blood Count 12.4 K/mm3 (4.4-11.0)
[2019-05-23 12:44] LABS: Erythrocyte Sedimentation Rate 25 mm/hr (0-30)
[2019-05-23 12:48] LABS: POSITIVE COUNT NO; POSITIVE DIFFERENTIAL NO; POSITIVE MORPHOLOGY NO
[2019-05-23 12:51] LABS: ALB/GLOB Ratio 1.1 RATIO (0.9-2.4); AST(SGOT) 14 U/L (15-37); Alanine Aminotransfer ALT/SGPT 20 U/L (13-56); Albumin, Serum 3.8 g/dL (3.2-5.0); Alkaline Phosphatase 109 U/L (45-117); Amylase 27 U/L (25-115); Anion Gap 7 (5-15); BUN 14 mg/dL (7-18); BUN/Creat Ratio 18.6 RATIO (10-20); Calcium,Total 9.2 mg/dL (8.5-10.1); Chloride 106 mmol/L (98-107); Creatinine, Serum 0.75 mg/dL (0.55-1.02); EST Glomerular Filtration Rate 79 mL/min (>60); Est Glom Filt Rate - Afr Amer 96 mL/min (>60); Globulin 3.5 g/dL (2.2-4.2); Glucose 98 mg/dL (74-106); Lipase 76 U/L (73-393); Potassium 3.9 mmol/L (3.5-5.1); Protein, Total 7.3 g/dL (6.4-8.2); Sodium Level 139 mmol/L (136-145)
== END | disposition home or self-care (01) ==
LOC: LABSPEC 12:15
PROVIDERS: Family Provider Internal Medicine; PCP Internal Medicine; Referring Provider Internal Medicine; Visit Provider Internal Medicine
DX: R10.13 Epigastric pain (principal)
CPT/HCPCS: 80053; 82150; 83690; 85025; 85652

== ENCOUNTER → 2019-05-27 | Outpatient (CLI) | payer MEDICARE, SELFPAY ==
[2018-11-12 07:11] VITALS: BMI 36.4
--- NOTE | 2019-05-27 14:43 | PFTCOMP ---
COMPLETE PULMONARY FUNCTION TEST INTERPRETATION Brief HPI: Patient is a 79 year old female, currently under the care of Dr. New, who presents to [facility] for complete pulmonary function tests secondary to diagnosis of dyspnea. Respiratory therapist reports good effort and reproducible results. Interpretation: Forced expiration spirometry shows no large airways obstructive ventilatory defect with an FEV1 of 119% predicted. There is no significant bronchodilator response by strict ATS criteria. Spirograms are of good quality and plateau normally. The respiratory flow volume loop shows a normal pattern. Lung volumes by body plethysmography show a normal total lung capacity at 3.8 L, 101% predicted. All other lung volumes are within normal limits. Diffusion capacity by carbon monoxide is normal at 84% predicted. The airway resistance is normal. No previous pulmonary function tests were available for review. Impression: These pulmonary function tests are within normal limits.
== END | disposition home or self-care (01) ==
LOC: PSN 13:11
PROVIDERS: Family Provider Internal Medicine; PCP Internal Medicine; Referring Provider Internal Medicine; Visit Provider Internal Medicine
DX: R06.02 Shortness of breath (principal)
CPT/HCPCS: 94060; 94726; 94729

== ENCOUNTER → 2021-08-19 13:13 | Outpatient (CLI) | payer MEDICARE, SELFPAY ==
--- NOTE | 2021-08-19 13:30 | SP.MBSS_ITS ---
Modified Barium Swallow - Patient Information Study Date: 08/19/21 Study Time: 13:30 Direct Billable Minutes: 120 Total Minutes procedure & reportin Diagnosis: dysphagia Referring Physician: Osito Lockhart Reason for Referral: Patient reports increased hoarse vocal quality, was referred by PCP to ENT. Per patient, ENT reported incomplete vocal fold closure and referred for objective assessment of swallow function under fluoroscopy. Medical History: Cardiomyopathy, HLD, HTN - obtained from medical record review Dentition: Partials - upper Respiratory Status: Oxygenating on Room Air - Penetration-Aspiration Scale Penetration-Aspiration Scale: OBJECTIVE ASSESSMENT OF SWALLOW FUNCTION (QUANTITATIVE ? PER TRIAL): PENETRATION / ASPIRATION SCALE (LOPEZ): 1 = does not enter airway 2 = enters airway/above vocal folds/ejected 3 = enters airway/above vocal folds/not ejected 4 = enters airway/contacts vocal folds/ejected 5 = enters airway/contacts vocal folds/not ejected 6 = enters airway/below vocal folds/ejected 7 = enters airway/below vocal folds/not ejected despite effort 8 = enters airway/below vocal folds/no effort - Penetration-Aspiration Scale Score Thin Liquid via teaspoon Result: 1= does not enter airway Thin Liquid via teaspoon Trial 2 Result: 1= does not enter airway Thin Liquid via small single sip from cup Result: 1= does not enter airway Thin Liquid via sequential sips from cup Result: 1= does not enter airway Thin Liquid via single sip from straw Result: 1= does not enter airway Pudding Result: 1= does not enter airway Pudding + Esophageal Screen Result: 1= does not enter airway Cookie Result: 1= does not enter airway Thin Liquid via small single sip from cup Trial 2 Result: 1= does not enter airway - Oral Phase Labial Seal: No Labial Escape Tongue Control During Bolus Hold: Cohesive bolus between tongue to palatal seal Bolus Preparation/Mastication: Slow prolonged chewing/mashing with complete recollection Bolus Transport/Lingual Motion: Slowed tongue motion Oral Residue: Residue collection on oral structures - able to clear w/ second swallow and/ or liquid wash - Pharyngeal Phase Initiation of Pharyngeal Swallow: Bolus head at posterior angle of ramus at first hyoid excursion Soft Palate Elevation: Trace column of contrast/air between soft palate and pharyngeal wall Laryngeal Elevation: Comp. Superior move thyroid cart w/comp. apprx arytenoid cart-epig pet Anterior Hyoid Excursion: Complete anterior movement Epiglottic Movement: Partial inversion - slowed inversion w/ retention of pudding residue atop epiglottis w/in the valleculae Laryngeal Vestibule Closure at Height of Swallow: Complete; no air/contrast in laryngeal vestibule Pharyngeal Stripping Wave: Present - complete Pharyngoesophageal Segment Opening: Complete distension and complete duration; no obstruction of flow - C4-5 osteophyte noted Tongue Base Retraction: Narrow column of contrast between tongue base & post. ph aryngeal wall Pharyngeal Residue: Collection of residue within or on pharyngeal structures - valleculae - Esophageal Phase Esophageal Clearance: Esophageal retention w/ retrograde flow below pharyngoesophageal seg. - Diagnosis/Impression Diagnosis: Functional oropharyngeal swallow Impression: The oral phase is primarily marked by: * mildly prolonged but effective mastication * slowed A-P bolus transportation w/ lingual retention of residue; able to clear residue w/ second swallow or liquid wash The pharyngeal phase is primarily marked by: * reduced base of tongue retraction and slowed epiglottic inversion w/ contributing to a collection of contrast being retained w/in the valleculae * a dry swallow and/or liquid wash were effective to reduce but not eliminate vallecular residue * contrast undercoated the posterior laryngeal surface of the epiglottis during deglutition d/t slowed epiglottic inversion, but this did not impact airway protection * consistent/complete airway closure achieved across all trials, regardless of bolus size or rate of ingestion The esophageal phase is marked by: * screening for clearance revealed impaired motility w/ esophageal bolus retention and retrograde bolus flow below the PES * although retrograde flow through the PES into the pharynx was not evident under fluoroscopy, this patient would be considered at increased risk for penetration/aspiration of reflux and potentially could contribute to reported vocal quality changes Anatomical abnormalities: * prominent cervical osteophyte located at the C-5 C-6 level, although did not appear to impact pharyngoesophageal motility * patient indicates that she has difficulty with big chunks of food, reporting that they do not go down and requires multiple swallows to clear - this may be attributed to C4-5 osteophytes vs. esophageal dysmotility - Recommendations Diet: Regular Textures, Thin Liquids Compensatory Strategies: Small Bites, Multiple Swallows - at reasonable intervals as necessary to clear oropharyngeal residue retention, Alternate bites/solids and sips/liquids, Sitting upright, Remain sitting upright for 30 minutes after PO intake - GERD precautions Recommend Repeat Modified Barium Swallow: No Need for Skilled Speech Therapy Services: No Comment: Patient able to comprehend and express recommended intake precautions detailed above with sufficient detail to suggest high likelihood of compliance. No further skilled speech-language services warranted at this time targeting dysphagia. May benefit from ST targeting voice, pending workup/etiology of hoarseness. Recommended Referrals: GI Consult - esophageal motility, see impression for details Education Completed: 1. Described result of evaluation., 2. Pt understands evaluation & agrees with goals and treatment plan. Comment: Results and recommendations were discussed and images were reviewed with the Patient immediately following MBS completion, with the Patient verbalizing understanding and agreement with all recommendations and education provided. - Status Active ST Patient: Active - Contact Information [facility] Speech Therapy:: Shanell Chavis M.A., CCC-SAS SQL DEVELOPER [place] [address] [place] [address] x [phone] [email or web address] 08/19/21 15:34
== END ==
PROVIDERS: PCP Internal Medicine; Referring Provider Otolaryngology; Visit Provider Otolaryngology
DX: R13.10 Dysphagia, unspecified (principal)
CPT/HCPCS: 74230; 92611

== ENCOUNTER 2022-02-21 15:23 | Outpatient (CLI) | payer MEDICARE, SELFPAY ==
[2022-02-21 18:20] LABS: CRP < 2.90 mg/L (0.0-3.0)
[2022-02-24 16:09] LABS: Endomysial Antibody IgA Negative (Negative)
[2022-02-24 21:23] LABS: Immunoglobulin A 269 mg/dL (64-422); t-Transglutaminase IgA <2 U/mL (0-3)
== END 2022-02-21 23:59 | disposition home or self-care (01) ==
LOC: MTLAB 15:24
PROVIDERS: PCP Internal Medicine; Referring Provider Internal Medicine Gastroenterology; Visit Provider Internal Medicine Gastroenterology
DX: R19.7 Diarrhea, unspecified (principal)
CPT/HCPCS: 36415; 82784; 83516; 86140; 86255

== ENCOUNTER 2022-02-24 11:14 | Outpatient (CLI) | payer MEDICARE, SELFPAY ==
[2022-02-26 21:22] LABS: Fats, Neutral Normal (.); Fats, Total Normal (.)
== END 2022-02-24 23:59 | disposition home or self-care (01) ==
LOC: LABSPEC 11:14
PROVIDERS: PCP Internal Medicine; Referring Provider Internal Medicine Gastroenterology; Visit Provider Internal Medicine Gastroenterology
DX: R19.7 Diarrhea, unspecified (principal)
CPT/HCPCS: 82705

== ENCOUNTER 2022-02-26 09:54 | Outpatient (CLI) | payer MEDICARE, SELFPAY ==
--- NOTE | 2022-02-26 09:15 | RAD_ITS ---
STUDY: X-RAY - ESOPHAGUS (BARIUM SWALLOW) WITH FLUOROSCOPY REASON FOR EXAM: Female, 81 years old. DYSPHAGIA TECHNIQUE: 15 view(s) of the esophagus were obtained following swallowing of barium. FLUOROSCOPY TIME (if supplied): (29 seconds) minutes/seconds COMPARISON: None. FINDINGS: There is no demonstrated esophageal foreign body. There is no demonstrated stricture or mucosal abnormality. Normal gastroesophageal junction, without a demonstrated hiatal hernia. The patient ingested a 12 mm tablet of barium without any difficulty. There is atherosclerotic calcification of the aortic arch with tortuosity of the descending aorta. Normal visualized pulmonary parenchyma. There are diffuse degenerative changes of the visualized thoracic spine. RAD/Esophagus Dual Contrast IMPRESSION: Normal plain film x-ray examination (barium swallow) of the esophagus. Electronically Signed: Jonny Martínez MD at 12:30 EDT ,
== END 2022-02-26 23:59 | disposition home or self-care (01) ==
LOC: RAD 09:56
PROVIDERS: PCP Internal Medicine; Referring Provider Internal Medicine Gastroenterology; Visit Provider Internal Medicine Gastroenterology
DX: R13.10 Dysphagia, unspecified (principal)
CPT/HCPCS: 74221

== ENCOUNTER 2022-05-12 11:30 | Outpatient (RCR) | payer MEDICARE, SELFPAY ==
--- NOTE | 2022-04-15 12:04 | HP.PTEVAL ---
Patient's Visit Information SIMRAN WALDROP is a 82 year old F referred to Physical Therapy by Dr. Halle New MD with a diagnosis of Gait. Date of Evaluation: 04/15/22 Physical Therapist: Bertha Coates DPT - Visit Plan Frequency: 2x /Week Duration: 4 Weeks Plan: Focus on LE and core strength/stabilization, proprioception and functional mobility. HEP Given IE: Sink Ex: HR/TR, Hip abduction, extension, marching and mini squats - Subjective Patient reports that she is having a lot of problems getting out of a chair, walking across rooms and balance. This has been going on for months just building up and it was time to come see us. No falls- does not use an AD. No pain just feels unsteady. Lives alone with a single floor set up with a basement- she does go down a few times a week and uses the hand rail. A couple of stairs to enter the home with a hand rail. No problems getting in/out. Fully I with all ADL's and driving. She does not always fall one direction but depends on how she is moving. No N/T in her LE. She was walking previous but now fatigue is taking over and now if she walks a block she is tired. She spends a lot of time sitting and watching TV. PMHx: DM 2, Pacemaker Meds: vidurian, Eliquis, contresto, furosemide, corrig, - Objective Posture: FH, RS- can correct but does not maintain. Gait: Wide base of support- slow nguyen- no AD. Stairs: asc/desc 8 recip with 2 HR. HR/TR: able with UE A. ROM:WFL in all planes. Strength: Core: fair plus Hip: 4/5 Knee: 4+/5 Ankle: 5/5. Flex: HS: severe Gastroc: moderate - Balance/Special Test Scores Functional Gait Assessment Score: 18 % Disability: 40.0000 Lower Extremity Functional Score: 54 TUG Test Time Seconds: 12 30 Second Chair Rise Test Seconds: 12 - Goals Goal 1:: Patient will be I with HEP and progression Goal Time Frame: 4-6 Weeks Goal 2:: Patient will perform 5 sit to stands without UE A Goal Time Frame: 4-6 Weeks Goal 3:: Patient will increase her FGA score to within functional limits for her age Goal 4:: Patient will report 80% improvement Goal Time Frame: 4-6 Weeks - Rehabilitation Potential Physical Therapy Diagnosis: Patient presents with hypomobility- she has decreased LE and core strength/stabilization, proprioception and muscular endurance leading to abnormal balance and decreased ability to perform ADL's Rehabilitation Potential: Good - Anticipated Interventions Patient/Client Instruction: Educate patient on: Benefits of Fitness Program Therapeutic Exercise to Include: Strength training, Endurance training, Balance training, Coordination, Agility training, Body mechanics, Postural training, Flexibilty training, Gait and locomotor training, Neuromotor development, Dynamic Lumbar Stabilization, Scapular Strength/Stabilization For the Purpose of:: To improve muscle performance and motor function Thank you for the opportunity to evaluate your patient. For Medicare and Medicare HMO plans, please review the plan of care and approve it. It will need to be FAXED BACK to us at [phone] for Medicare purposes. For Medicare only, by signing this I certify the plan of care. Please let me know if there are questions or concerns regarding this plan of care. Physician Signature: Date:
--- NOTE | 2022-05-12 12:47 | HP.PTDCSUM ---
It has been my pleasure to treat SIMRAN WALDROP referred by Dr. Halle New MD, with the diagnosis of Gait for a total of 8 visit(s). Discharge Date: Please see the following information for a summary of their discharge status. Subjective: Patient reports that she is more active- she is walking outside more. She feels more confident with her balance. She is getting better with getting in/out of chairs but she is more cautious when working in her flower beds. She would like to continue her exercises at home. She plans to try Chair Yoga. LB Pain Intensity (Out of 10): Unrated Right Arm Pain Intensity (Out of 10): Unrated % Improvement: 75 Objective/Function: Posture: FH, RS- can correct and maintain. Gait: no deviation noted- good arm swing and trunk rotation. Stairs: asc/desc 8 recip with 1 HR. HR/TR: able with UE A. ROM:WFL in all planes. Strength: Core: fair plus Hip: 4+/5 Knee: 5/5 Ankle: 5/5. Flex: HS: mod Gastroc: moderate Goal 1:: Patient will be I with HEP and progression Goal Progress: Goal Met Goal 2:: Patient will perform 5 sit to stands without UE A Goal Progress: Goal Met Goal 3:: Patient will increase her FGA score to within functional limits for her age Goal Progress: Goal Met Goal 4:: Patient will report 80% improvement Goal Progress: Goal Met Plan: 05/12/22: Discharge to independent HEP- encouraged to call if questions or concerns. Add load to sit to stands. Pt performed 30 reps without rest today. Focus on LE and core strength/stabilization, proprioception and functional mobility If there are questions or concerns regarding this patient's physical therapy, please feel free to call me at [phone]. Thank you for the referral of this patient. Sincerely, Bertha Coates, MALAIKAT Balance/Gait/Functional tests - Balance/Special Test Scores Functional Gait Assessment Score: 29 % Disability: 3.3400 Lower Extremity Functional Score: 53 TUG Test Time Seconds: 8.03 Tug Test: (fall prevention task force) 30 Second Chair Rise Test Seconds: 12
== END 2022-05-12 19:00 | disposition home or self-care (01) ==
LOC: PT 11:30
PROVIDERS: PCP Internal Medicine; Referring Provider Internal Medicine; Visit Provider Internal Medicine
DX: R26.81 Unsteadiness on feet (principal)
CPT/HCPCS: 97110; 97162; 97164

== ENCOUNTER → 2022-07-30 | Outpatient (CLI) | payer MEDICARE, SELFPAY ==
[2022-07-30 10:06] LABS: Hematocrit 39.4 % (37-47); Hemoglobin 12.8 g/dL (12.0-15.0); Mean Corp Hgb Conc 32.5 g/dL (32-36); Mean Corpuscular Hgb 30.5 pg (27.0-32.0); Platelet Count 204 K/mm3 (150-450); RBC Distribution Width CV 13.7 % (11.6-14.6); RBC Distribution Width SD 46.7 fl (35.1-43.9); Red Blood Count 4.19 M/mm3 (4.2-5.4); White Blood Count 9.6 K/mm3 (4.4-11.0)
[2022-07-30 10:34] LABS: ALB/GLOB Ratio 1.1 RATIO (0.9-2.4); AST(SGOT) 16 U/L (15-37); Alanine Aminotransfer ALT/SGPT 25 U/L (13-56); Albumin, Serum 3.5 g/dL (3.2-5.0); Alkaline Phosphatase 118 U/L (45-117); Anion Gap 5 (5-15); BUN 28 mg/dL (7-18); BUN/Creat Ratio 28.8 RATIO (10-20); Chloride 114 mmol/L (98-107); Creatinine, Serum 0.97 mg/dL (0.55-1.02); EST Glomerular Filtration Rate 59 mL/min (>60); Est Glom Filt Rate - Afr Amer 71 mL/min (>60); Globulin 3.3 g/dL (2.2-4.2); Glucose 115 mg/dL (74-106); Potassium 3.8 mmol/L (3.5-5.1); Protein, Total 6.8 g/dL (6.4-8.2); Sodium Level 143 mmol/L (136-145)
[2022-07-30 10:37] LABS: Vitamin B12 241 pg/mL (211-911)
[2022-08-03 11:44] LABS: Vitamin D 1,25-Dihydroxy 30.1 pg/mL (24.8-81.5)
== END | disposition home or self-care (01) ==
PROVIDERS: PCP Internal Medicine; Referring Provider Psychiatry & Neurology Neurology; Visit Provider Psychiatry & Neurology Neurology
DX: N20.0 Calculus of kidney (principal); H81.90 Unspecified disorder of vestibular function, unspecified ear; E53.8 Deficiency of other specified B group vitamins; E55.9 Vitamin D deficiency, unspecified
CPT/HCPCS: 36415; 80053; 82607; 82652; 85027

== ENCOUNTER → 2022-08-19 | Outpatient (CLI) | payer MEDICARE, SELFPAY ==
--- NOTE | 2022-08-19 14:53 | CT_ITS ---
STUDY: CT IAC/PF/Orbit/Sella W/O Contrast Injection - Bilateral REASON FOR EXAM: Female, 82 years old. peripheral vestibulopathy, gait disorder -- patient unable to have MRI due to pacemaker RADIATION DOSAGE (If Supplied By Facility): CTDIvol = ( 67.58 ) mGy, DLP = ( 945.56 ) mGycm TECHNIQUE: The patient was scanned in a multi detector CT scanner. Transaxial imaging was performed without the administration of intravenous contrast material. Sagittal and coronal images were reconstructed. Individualized dose optimization techniques were used for this CT. COMPARISON: None. FINDINGS: On the right, the external auditory canal, mastoid complexes, and middle ear, including the ossicles and pneumatization are normal. The tegmen tympani and scutum are normal. The oval and round windows are normal. the inner ear, including the cochlea, vestibule, semicircular canals and internal auditory canal are normal. The vestibular aqueduct is not enlarged. The course and caliber of the facial nerve, including the mastoid portion, is normal. The course of the internal carotid artery and jugular vein are normal. On the left, the external auditory canal, mastoid complexes, and middle ear, including the ossicles and pneumatization are normal. The tegmen tympani and scutum are normal. The oval and round windows are normal. the inner ear, including the cochlea, vestibule, semicircular canals and internal auditory canal are normal. The vestibular aqueduct is not enlarged. The course and caliber of the facial nerve, including the mastoid portion, is normal. The course of the internal carotid artery and jugular vein are normal. No cerebellar pontine angle masses. CT/Orb Sella Post Fossa Ear w/o IMPRESSION: Normal CT examination of the temporal bones. Electronically Signed: Rome Trent MD at 3:38 EDT Reading Location ID and State: [id number] / , Service support ,
--- NOTE | 2022-08-19 14:53 | CT_ITS ---
EXAM: CT CERVICAL SPINE WITHOUT INTRAVENOUS CONTRAST CLINICAL INDICATION: neck pain; abnormality of gait -- patient unable to have MRI due to pacemaker TECHNIQUE: Helically acquired images were obtained of the cervical spine without intravenous contrast. 2D reformatted images were reviewed. This CT exam was performed using one or more of the following dose reduction techniques: automated exposure control, adjustment of the mA and/or kV according to patient size, and/or use of iterative reconstruction technique. This report was created using [employer] report generation technology. COMPARISON: None. FINDINGS: VERTEBRAE: There are small anterior osteophytes from C3 through C5. Mild bilateral bony neural foraminal narrowing at C5-6. No fracture. No traumatic subluxation. No discrete lytic or blastic abnormality. Normal alignment. Normal craniocervical junction and cervicothoracic junction. DISCS/SPINAL CANAL/NEURAL FORAMINA: There is mild disc space narrowing at C5-6. SOFT TISSUES: Unremarkable. No prevertebral soft tissue swelling. LYMPH NODES: Unremarkable. No cervical adenopathy. LUNG APICES: Unremarkable as visualized. Clear. CT/Spine Cervical without Contras IMPRESSION: 1. No acute osseous abnormalities of the cervical spine. 2. Mild degenerative changes with disc space narrowing and bony neural foraminal narrowing. Electronically Signed: Tam Crowe MD at 2:44 EDT ,
== END | disposition home or self-care (01) ==
LOC: CT 14:53
PROVIDERS: PCP Internal Medicine; Referring Provider Psychiatry & Neurology Neurology; Visit Provider Psychiatry & Neurology Neurology
DX: H81.90 Unspecified disorder of vestibular function, unspecified ear (principal); R26.9 Unspecified abnormalities of gait and mobility
CPT/HCPCS: 70480; 72125

== ENCOUNTER 2023-02-17 11:30 | Outpatient (RCR) | payer MEDICARE, SELFPAY ==
--- NOTE | 2022-12-23 14:06 | HP.PTEVAL_ITS ---
Patient's Visit Information SIMRAN WALDROP is a 82 year old F referred to Physical Therapy by Dr. Jame Asher MD with a diagnosis of peripheral vestibulopathy, disequilibrium, abnormality of gait. Date of Evaluation: 12/23/22 Physical Therapist: RANULFO Taylor - Visit Plan Frequency: 2x /Week Duration: 4 Weeks Plan: 2X/ week for 4 weeks for functional strength, static and dynamic balance on and off the foam (with and without head turns), functional balance such as curb steps, over objects, amb with head turns with HEP to continue functional strength and safe balance activities at home. - Subjective Pt needs the next set of rehab cause she is having trouble with gait, unsteadiness, dizziness if get up too fast. This has been going on for several years and increasingly getting worse. She was here in April and did PT in April and she was pressured by last week to come in for more PT. In April she was in PT for the same thing but not as bad as what she is now. No change in history since April. She is more sedentary since April and had to have a precancerous out of her leg and could not walk and just had a bunch of work done on her teeth. She lives in a one story home. She loves alone. She has steps to the basement and has a rail and goes down and up recip with a hand rail and slowly. She reports that she has upper thigh weakness and that is why she pulls herself up the stairs. Sit to stand: she really has to push self to get out of the chair. She has to hold onto the chair once she is standing for a minute so she does not fall over. She has had no falls. She has no trouble getting in and out of a shower or a car. Pt complains of sharp pain in her neck with sitting or turning her head and that occurs 2-3X/ week and uses the rice bags to help relieve the pain. - Objective Gait: Walks with WBOS and increase veering every few steps. Has to stop to turn her head. CATSIB 80/120. FGA: 14. LE MMT: R hip flex 9.6# and L 9.8#. R knee ext 21.1# and L knee ext 19.2#. R knee flex 13.9# and L knee flex 12.4#. Pt is able to heel and toe raise. R DF is alittle harder/ seems to be weaker with decrease ROM compared to the l. Smooth pursuit horizontal and vertical no dizziness. decent tracking harder to track vertical. Head R and L .... she felt like she was going to fall over more in sitting.. just an over all unsteadiness in sitting. Patella DTR's: 0/3 B. Sit to stand: needs UE for balance to get out of a chair. - Balance/Special Test Scores Functional Gait Assessment Score: 14 % Disability: 53.3400 CATSIB Score (Max score 120 seconds): 80 Dizziness Score: 18 - Goals Goal 1:: I HEP Goal Time Frame: 4-6 Weeks Goal 2:: Increase FGA by 5 points to decrease fall risk (score was 14 at eval). Goal Time Frame: 4-6 Weeks Goal 3:: Increase CATSIB score to decrease fall risk (score was 80 at time of the eval). Goal Time Frame: 4-6 Weeks Goal 4:: Be able to sit to stand X 10 using no UE support and being able to stand up with upright posture with no LOB Goal Time Frame: 4-6 Weeks - Rehabilitation Potential Rehabilitation Potential: Good - Anticipated Interventions Patient/Client Instruction: Educate patient on: Condition, Plan of Care For the Purpose of:: To improve muscle performance and motor function, To improve ability to perform ADL's, To increase tolerance to activity/condition/position, To improve performance and independence with ADL's, To decrease level of supervision to perform tasks, To improve ability of physical actions for home/community/work/leisure, To improve gait and locomotor functions, To improve endurance, To improve balance, To improve safety with gait Therapeutic Exercise to Include: Strength training, Endurance training, Balance training, Coordination, Body mechanics, Postural training, Flexibilty training, Gait and locomotor training, Neuromotor development, Active ROM For the Purpose of:: To improve muscle performance and motor function, To improve ability to perform ADL's, To increase tolerance to activity/condition/position, To improve performance and independence with ADL's, To decrease level of supervision to perform tasks, To improve ability of physical actions for home/community/work/leisure, To improve gait and locomotor functions, To increase flexibility/ROM, To improve balance, To improve safety with gait Functional Training to Include: Gait training For the Purpose of:: To improve gait and locomotor functions, To improve safety with gait Thank you for the opportunity to evaluate your patient. For Medicare and Medicare HMO plans, please review the plan of care and approve it. It will need to be FAXED BACK to us at [phone] for Medicare purposes. For Medicare only, by signing this I certify the plan of care. Please let me know if there are questions or concerns regarding this plan of care. Physician Signature:__ Date:
--- NOTE | 2023-01-23 13:02 | HP.PTREVAL ---
Dr. Jame Asher MD, It has been my pleasure to treat SIMRAN WALDROP over the last 9 visits for peripheral vestibulopathy, disequilibrium, abnormality of gait. Please see the progress note below for an update on the physical therapy plan of care! Subjective: Pt reports that she is fine with walking but when she turns quick here or in the clinic she gets dizzy. Getting out of bed she stll gets a little dizzy. The walking is much improved. She used to stagger but she is much less staggering when she goes out to get the paper. Objective/Function: FGA 17. CATSIB 115/120. Sit to stand X 10 with no arms. Increase veering with walking and horizontal head turns. Plan Plan: 2X/ week for 2 additional weeks for walking with head turns and turning 180 degrees like from counter to fridge etc and turning to look to sit down in a chair as this make her dizzy and have to grab the chair. Balance/Gait/Functional tests - Balance/Special Test Scores Functional Gait Assessment Score: 17 % Disability: 43.3400 CATSIB Score (Max score 120 seconds): 115 Dizziness Score: 34 Goals Goal 1:: I HEP Goal Time Frame: 4-6 Weeks Goal 2:: Increase FGA by 5 points to decrease fall risk (score was 14 at eval). Goal Time Frame: 4-6 Weeks Goal Progress: Progressing Goal 3:: Increase CATSIB score to decrease fall risk (score was 80 at time of the eval). Goal Time Frame: 4-6 Weeks Goal Progress: Progressing Goal 4:: Be able to sit to stand X 10 using no UE support and being able to stand up with upright posture with no LOB Goal Time Frame: 4-6 Weeks Goal Progress: Goal Met Anticipated Interventions Patient/Client Instruction: Educate patient on: Condition, Plan of Care For the Purpose of:: To improve muscle performance and motor function, To improve ability to perform ADL's, To increase tolerance to activity/condition/position, To improve performance and independence with ADL's, To decrease level of supervision to perform tasks, To improve ability of physical actions for home/community/work/leisure, To improve gait and locomotor functions, To improve endurance, To improve balance, To improve safety with gait Therapeutic Exercise to Include: Strength training, Endurance training, Balance training, Coordination, Body mechanics, Postural training, Flexibilty training, Gait and locomotor training, Neuromotor development, Active ROM For the Purpose of:: To improve muscle performance and motor function, To improve ability to perform ADL's, To increase tolerance to activity/condition/position, To improve performance and independence with ADL's, To decrease level of supervision to perform tasks, To improve ability of physical actions for home/community/work/leisure, To improve gait and locomotor functions, To increase flexibility/ROM, To improve balance, To improve safety with gait Functional Training to Include: Gait training For the Purpose of:: To improve gait and locomotor functions, To improve safety with gait Please do not hesitate to contact me at [phone] by phone or if you have questions or concerns regarding this new plan of care! Sincerely, Maira Leon, MPT
--- NOTE | 2023-02-17 12:00 | HP.PTDCSUM ---
It has been my pleasure to treat SIMRAN WALDROP referred by Dr. Jame Asher MD, with the diagnosis of peripheral vestibulopathy, disequilibrium, abnormality of gait for a total of 13 visit(s). Discharge Date: 02/17/23 Please see the following information for a summary of their discharge status. Subjective: Pt feels that her turning 180 degrees is getting easier and she still has to be careful with supine to sit. No falls. She is doing Silver Sneakers 2-3 times per week. She has no concerns LB Pain Intensity (Out of 10): 5 Pain down L leg Pain Intensity (Out of 10): 5 % Improvement: 100 Objective/Function: FGA:24. CATSIB 120/120. Gait: walks with a normal gait pattern Goal 1:: I HEP Goal Progress: Goal Met Goal 2:: Increase FGA by 5 points to decrease fall risk (score was 14 at eval). Goal Progress: Goal Met Goal 3:: Increase CATSIB score to decrease fall risk (score was 80 at time of the eval). Goal Progress: Goal Met Goal 4:: Be able to sit to stand X 10 using no UE support and being able to stand up with upright posture with no LOB Goal Progress: Goal Met Plan: DC PT to I Silver Sneakers Program Discharge Comments: DC PT to HEP If there are questions or concerns regarding this patient's physical therapy, please feel free to call me at [phone]. Thank you for the referral of this patient. Sincerely, Maira Leon, MPT Balance/Gait/Functional tests - Balance/Special Test Scores Functional Gait Assessment Score: 24 % Disability: 20.0000 CATSIB Score (Max score 120 seconds): 120 Dizziness Score: 16
== END 2023-02-17 15:22 | disposition home or self-care (01) ==
LOC: PT 11:30
PROVIDERS: PCP Internal Medicine; Referring Provider Psychiatry & Neurology Neurology; Visit Provider Psychiatry & Neurology Neurology
DX: H81.90 Unspecified disorder of vestibular function, unspecified ear (principal); R42 Dizziness and giddiness; R26.9 Unspecified abnormalities of gait and mobility
CPT/HCPCS: 97110; 97161; 97530

== ENCOUNTER → 2023-03-16 | Outpatient (CLI) | payer MEDICARE, SELFPAY ==
--- NOTE | 2023-03-16 16:23 | NEURO ---
NCS and/or EMG Patient Report Ordering Doctor: Halle New DATE OF SERVICE: 03/16/23 Indication: Longstanding pain, weakness and intermittent numbness in the left hand. Evaluate for entrapment neuropathy. Findings: Nerve conduction studies were performed in the left upper extremity. The left median motor study recording the abductor pollicis brevis showed a normal amplitude, prolonged distal latency and normal conduction velocity. The left ulnar motor study recording the abductor digiti minimi showed a normal amplitude, normal distal latency and normal conduction velocity. No conduction block or focal slowing was present across the elbow. The left median sensory response recording digit two showed a reduced amplitude, prolonged latency and markedly slowed conduction velocity. The left ulnar sensory response recording digit five showed a normal amplitude, latency and conduction velocity. The left radial sensory response recording over the extensor snuff box showed a normal amplitude, latency and conduction velocity. Needle EMG of the left upper extremity muscles was performed. No denervation was seen in any muscle. Motor units were large with reduced recruitment in the abductor pollicis brevis. All other motor unit morphology, activation and recruitment patterns were normal. Impression: This is an abnormal study. 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 The lesion is predominantly demyelinating though there is evidence of secondary axonal loss. These findings are compatible with the clinical diagnosis of carpal tunnel syndrome. [place] D.O. Multi Select Codes Neurology Neurology Interp Codes: 86787-57 Musc test done w/n test comp (interp) and 45147-95 Nrv cndj tst 5-6 studies (interp)
== END | disposition home or self-care (01) ==
LOC: PSN 15:16
PROVIDERS: PCP Internal Medicine; Referring Provider Internal Medicine; Visit Provider Internal Medicine
DX: M79.642 Pain in left hand (principal)
CPT/HCPCS: 95886; 95909

== ENCOUNTER 2023-04-01 11:01 | Outpatient (CLI) | payer MEDICARE, SELFPAY ==
--- NOTE | 2023-04-01 11:04 | MRI_ITS ---
STUDY: BILATERAL BREAST MR WITHOUT AND WITH CONTRAST REASON FOR EXAM: Female, 83 years old. New diagnosis of left breast cancer. TECHNIQUE: Multi-sequence multi-echo imaging of both breasts was performed with a dedicated breast coil. T1-weighted and T2-weighted images were performed before the administration of contrast. T1-weighted images were also performed after the intravenous administration of 17 mL of Clariscan contrast. Substantial artifact in the upper outer quadrant of the left breast from the patient''s pacemaker. COMPARISON: Prior bilateral diagnostic mammogram, left breast ultrasound dated December 16, 2022. Prior ultrasound-guided biopsy of left breast and left diagnostic mammogram dated March 10, 2023. FINDINGS: RIGHT BREAST: Scattered fibroglandular density with minimal background enhancement. No abnormal enhancing masses or areas of non-mass enhancement in the right breast. LEFT BREAST: Scattered fibroglandular densities with minimal background enhancement. Tissue clip marker in the retroareolar region of the left breast. Inverted left nipple with irregular enhancing mass in the retroareolar region measuring possibly 9 mm x 8 mm corresponding to the index lesion seen on mammogram and ultrasound. No enlarged or abnormal lymph nodes, although there is limited evaluation of the left lobe due to the pacemaker. No abnormality in the visualized regions of the chest or liver. MRI/Breast Bilateral W/O and W IMPRESSION: Retroareolar enhancing mass corresponding to the index lesion which was biopsied. No other lesions identified. CATEGORY: BIRADS Category 6: Known Biopsy-Proven Malignancy - Appropriate Action Should Be Taken. A letter regarding these results will be sent to the patient by the facility within 30 days. Electronically Signed: Aiden Hager, at 10:45 EDT ,
[2023-04-01 11:50] VITALS: BP 109/48; PULSE 99; RESP 16; O2SAT 95
[2023-04-01 12:05] VITALS: BP 104/46; PULSE 100; O2SAT 95
[2023-04-01 12:20] VITALS: BP 113/57; PULSE 100; O2SAT 95
== END 2023-04-01 23:59 | disposition home or self-care (01) ==
PROVIDERS: PCP Internal Medicine; Referring Provider Surgery; Visit Provider Surgery
DX: C50.012 Malignant neoplasm of nipple and areola, left female breast (principal)
CPT/HCPCS: 77049; A9575; A4216; C8908

== ENCOUNTER 2023-04-06 14:22 | Observation (INO) | payer MEDICARE, SELFPAY ==
[2023-04-06] VITALS (10 sets, daily range): BP systolic 104–125; BP diastolic 49–102; PULSE 14–83; RESP 14–18; TEMP 36.1–36.8; O2SAT 94–100; BMI 33.5
--- NOTE | 2023-04-06 | IMM_PTH ---
PATIENT: SIMRAN WALDROP LOC: MS3 U#:[id number] AGE/SX: 83/F ROOM: SC320 RE04/06/[address]: Dr. Nik Scott MD : 1940 BED: 1 DIS: 04/07/2023 SPEC #: [id number] RECD: 04/10/23 12:58 STATUS: SUNITA REChari #: [id number] KAREN: 04/06/23 00:[address]: Nik Scott DEPT: IMMUNOHISTOCHEMISTRY RECD BY: Sear Serrano ENTERED: 04/10/23 12:59 SP TYPE: IMMUNO OTHR DR: Dr. Halel New MD Tissues: A - Axillary lymph node, NOS B - Left breast, NOS Procedures: Calponin-1(initial) CALPONIN-1 (add) CK7 (add) CK8 (add) E-CAD (add) Pankeratin (initial) Pankeratin (add) P40 (add) PHYSICIAN & [address] [address] SPECIMEN INFORMATION: Tissue Source: A ? Left sentinel lymph node, B ? Left breast Clinical Info: Breast cancer Specimen Number: [id number] A1, A2, B9, B10, B14 CPT code: 47989 x2, 13579 x12 METHODOLOGY: Deparaffinized sections of prefer/formalin-fixed tissue or PAP/DQ stained slides are incubated with monoclonal/polyclonal antibodies/oligonucleotide probes. Localization is made via biotin free immunoperoxidase method. Appropriate controls are performed and reacted as expected. Results on target cell population are indicated in the following table: RESULTS: ANTIBODY / CLONE RESULT Block A1 AE1-3 (AE1/AE3/PCK26) negative CK7 (OV-TL12/30) negative Block A2 AE1-3 (AE1/AE3/PCK26) negative CK7 (OV-TL12/30) negative Block B9 Calponin-1 (UU793Q) positive P40 (BC28) positive Block B10 E-Cad (ECH-6) negative CK8 (70ebikW90) positive Calponin-1 (WN124G) positive P40 (BC28) positive Block B14 E-Cad (ECH-6) positive CK8 (69ekzlB42) positive Calponin-1 (BE067X) negative* P40 (BC28) negative* * positive in the ductal carcinoma in situ These tests were developed and their performance characteristics determined by [facility]. They may not have been cleared or approved by the U.S. Food and Drug Administration. The FDA has determined that such clearance or approval is not necessary. The above immunohistochemical/dualISH markers are ordered and reviewed by the Pathologist. INTERPRETATION: A. Left sentinel lymph node, biopsy: Two out of two lymph nodes, negative for metastatic carcinoma. B. 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 Focal atypical lobular hyperplasia (B10). Negative for invasive carcinoma (B9 & B10). SJ:june 04/13/2023
--- NOTE | 2023-04-06 | AXNB_PTH ---
PATIENT: SIMRAN WALDROP LOC: MS3 U#:[id number] AGE/SX: 83/F ROOM: [facility] RE04/06/[address]: Dr. Nik Scott MD : 1940 BED: 1 DIS: 04/07/2023 SPEC #: [id number] RECD: 04/06/23 13:10 STATUS: SUNITA SANDRA #: [id number] KAREN: 04/06/23 00:[address]: Nik Scott DEPT: SURGICAL PATHOLOGY RECD BY: Sera Serrano ENTERED: 04/06/23 14:09 SP TYPE: AX NODE BX OTHR DR: Dr. Halle New MD Tissues: A - Axillary lymph node, NOS B - Breast, NOS Procedures: Frozen Section (charge) Surgery Specimen Level IV Surgery Specimen Level V HEADER OPERATION: Simple mastectomy with sentinel lymph node biopsy PRE-OP DIAGNOSIS: Breast cancer TISSUE SUBMITTED: A ? Left sentinel node, frozen section, B ? Left breast, silk suture saez lateral aspect of mastectomy FROZEN SECTION DIAGNOSIS A. [place] lymph nodes, biopsy: Two out of two lymph nodes, negative for metastatic carcinoma. SJ:june 04/06/2023 MICROSCOPIC DIAGNOSIS A. [place] lymph nodes, biopsy: Two out of two lymph nodes, negative for metastatic carcinoma. See comment. B. Left breast, mastectomy: Invasive ductal carcinoma. See cancer summary in the comment section. SJ:june 04/13/2023 COMMENT A. The lymph nodes are negative for metastatic carcinoma on multiple H & E levels and immunohisto-chemical stains for cytokeratins ([id number]). B. BREAST CANCER SUMMARY Procedure ? total mastectomy Specimen laterality - left Tumor site ? Central, subareolar area Tumor size ? 1.1 x 1.0 cm (measured microscopically). The tumor size is larger than the grossly measured size. Histologic type ? 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 single focus of invasive carcinoma. Ductal carcinoma in situ - present Negative for extensive intraductal component (EIC) Size (extent) of DCIS ? DCIS comprise about 5% of the total tumor volume. Number of blocks with DCIS - 1 Number of blocks examined - 16. Architectural pattern ? solid and cribriform Nuclear grade - grade 2-(intermediate) Necrosis ? present, central (expansive ?comedo? necrosis) Lobular carcinoma in situ ? not present Tumor extension: Skin ? skin is present and uninvolved. Nipple ? DCIS does not involve nipple epidermis. Skeletal muscle ? no skeletal muscle present. Margins: Invasive carcinoma and ductal carcinoma in situ are 4.0 cm away from the closest posterior margin. Regional lymph nodes: Number of lymph nodes examined - 2 Number of sentinel lymph nodes examined - 2 Number of lymph nodes with macrometastases, micrometastases or isolated tumor cells - 0 Treatment effect - no known presurgical therapy. Lymphvascular invasion ? not identified Dermal lymphvascular invasion ? not identified Distant metastasis ? not applicable Additional Pathologic Findings ? [place] intraductal hyperplasia without atypia. Fibrocystic changes and adenosis. Multiple fibroadenomas x6 (0.2 to 0.6 cm in greatest dimension). Focal atypical lobular hyperplasia. Ancillary Studies: Previously performed at [facility] ([id number]) ER: positive (91-100%), strong intensity ND: positive (81-90%), strong intensity Her2 by JOSUE: equivocal (score 2+) Microcalcifications ? present in DCIS and non-neoplastic tissue. Clinical History - Please make reference to previous specimen from [facility] ([id number]), breast, left, retroareolar mass, core biopsy with diagnosis of ?invasive mammary carcinoma with mixed ductal and lobular features, grade 2.? PATHOLOGIC STAGE: pT1c pN0(sn) pMx The above summary is in compliance with [employer] [place] [employer] (CAP) Cancer Protocols Checklist and [place] Joint Committee on Cancer (AJCC), Staging Manual, 8th Ed. B. Immunohistochemistry ([id number]) supports the above diagnosis. If Her-2neu by dual JOSUE is needed, please notify the laboratory. Case has been reviewed in consultation with Dr. Jj who concurs with the above diagnosis. IDC:AM MICROSCOPIC DESCRIPTION Slides are reviewed. GROSS DESCRIPTION A - Received fresh for frozen section diagnosis labeled with the patient's name is a specimen designated sentinel lymph nodes. The specimen consists of a piece of adipose tissue measuring 3.8 x 1.8 x 0.6 cm. One nodule consistent with lymph node is identified measuring 1.5 cm in greatest dimension. A possible indurated area suspicious for lymph node is also present. The entire specimen is submitted as follows for frozen section diagnosis: 1 - one bisected lymph node, 2 - possible lymph node. / SJ: 04/06/2023 B - Received in fixative is one container labeled with the patient's name and designated left breast. The specimen consists of a mastectomy specimen consistent with breast tissue with overlying skin ellipse. The breast tissue measures 14.5 x 9.0 x 7.0 cm. The skin ellipse measures 14.5 x 6.5 cm. The nipple appears to be flattened and measures 1.0 cm in greatest dimension. The specimen is inked as follows: posterior - black, superior - blue, inferior - green, medial - red and lateral - orange. More dictation will follow after fixation. / SJ: 04/07/2023 Sections reveal a sotelo, indurated fibrous area measuring 0.6 x 0.5 x 0.5 cm. This area is 0.4 cm away from the closest superior margin. Sections also reveal a small nodule measuring 0.5 cm in greatest dimension. Sectioning of the rest of the specimen reveal sotelo-yellow adipose cut surfaces mixed with sotelo-white fibrous areas. Plow Shaker sections are submitted in 12 cassettes as follows: 1 - nipple, entirely submitted, 2??perpendicular medial, lateral and inferior margins, 3 - perpendicular posterior margin and skin, 4 & 5 ? fibrous area with closest superior margin, entirely submitted, 6 & 7 - branch service representative section adjacent to the fibrous area, 8-12 - branch service representative sections from other areas. Sections are submitted after additional fixation. / SJ: 04/08/2023 The specimen is dissected again and shows an indurated, fibrous area underneath the nipple areolar complex measuring 0.6 cm in greatest dimension. This area is 4.0 cm away from the closest posterior margin. Plow Shaker sections are submitted as follows: 13-16 - indurated, fibrous area underneath the area of nipple areolar complex. / SJ:june 04/10/2023 TC:0 CPT: 03003o0, 52713, 07924
[2023-04-06] MEDS: Lactated Ringers 1,000 ML 15 ML IV ×2 (08:55→20:26)
--- NOTE | 2023-04-06 08:59 | EKG12_ITS ---
Test Reason : PREOP Blood Pressure : / mmHG Vent. Rate : 073 BPM Atrial Rate : 073 BPM P-R Int : 142 ms QRS Dur : 140 ms QT Int : 452 ms P-R-T Axes : 047 240 024 degrees QTc Int : 497 ms Atrial-sensed ventricular-paced rhythm with frequent AV dual-paced complexes Abnormal ECG No previous ECGs available Confirmed by RADAMES VAUGHAN, KARMEN ([id number]), continuity editor MARIZA BOTELLO ([id number]) on 04/09/2023 12:34:16 P M Referred By: Nik Scott Confirmed By:WILFREDO CRUM MD
--- NOTE | 2023-04-06 09:00 | NM_ITS ---
PROCEDURE: NUCLEAR MEDICINE Injection [place] Node - LEFT breast(s). REASON FOR EXAM: Female, 83 years old. Left breast cancer. TECHNIQUE: [place] node localization using radionuclide methods of the LEFT breast(s) was performed following subcutaneous administration of 1.2 mCi of of sulfur colloid Tc-99m. COMPARISON STUDIES : NM - None. FINDINGS: 1.2 mCi of technetium labeled sulfur colloid was injected subcutaneously in the periareolar region for sentinel node imaging. NM/Lymph Node Injection Only IMPRESSION: Subcutaneous injection of 1.2 mCi of technetium labeled sulfur colloid in the periareolar region for sentinel node imaging. Electronically Signed: Jonny Martínez MD at 10:29 EDT ,
[2023-04-06 09:15] LABS: Hemoglobin A1c 5.4 % (3.8-5.6)
[2023-04-06 09:35] LABS: Bedside Glucose 112 mg/dL (74-106)
--- NOTE | 2023-04-06 11:12 | PCM.HP.BLA ---
History and Physical Date of Admission: 04/06/23 Allergies LARISSA Inhibitors Adverse Reaction (Severe, Verified 04/03/23 08:38) coughchlorpromazine [From Thorazine] Adverse Reaction (Severe, Verified 04/03/23 08:38) Itchingoxybutynin Adverse Reaction (Intermediate, Verified 04/03/23 08:38) NEEDS FOLLOW-UPlisinopril Adverse Reaction (Verified 04/03/23 08:38) COUGHprochlorperazine [From Compazine] Adverse Reaction (Verified 04/03/23 08:38) Itching Medications carvedilol 25 mg tablet 25 mg PO BID 11/09/18 [History Confirmed 04/03/23] exenatide microspheres 2 mg/0.65 mL subcutaneous pen injector (Bydureon) 2 mg SQ SA 11/09/18 [History Confirmed 04/03/23] apixaban 5 mg tablet (Eliquis) 5 mg PO BID 07/24/22 [History Confirmed 04/03/23] cholestyramine-aspartame 4 gram oral powder for susp in a packet PO BID 07/24/22 [History Confirmed 04/03/23] cholecalciferol (vitamin D3) 1,250 mcg (50,000 unit) capsule 1,250 mcg PO QWEEK #4 caps 12/15/22 [Rx Confirmed 04/03/23] furosemide 40 mg tablet (Lasix) 40 mg PO DAILY 03/17/23 [History Confirmed 04/03/23] [id number] intramuscular ea IM 03/17/23 [History Confirmed 04/03/23] loratadine 10 mg tablet (Claritin) 10 mg PO DAILY 03/17/23 [History Confirmed 04/03/23] sacubitril 49 mg-valsartan 51 mg tablet (Entresto) 1 tab PO BID 03/17/23 [History Confirmed 04/03/23] atorvastatin 40 mg tablet 40 mg PO QHS 03/18/23 [History Confirmed 04/03/23] calcium carbonate 500 mg calcium (1,250 mg) tablet (Oyster Shell Calcium 500) 600 mg PO DAILY@0800 03/18/23 [History Confirmed 04/03/23] loratadine 10 mg tablet (Claritin) 10 mg PO DAILY 03/18/23 [History Confirmed 04/03/23] meclizine 25 mg tablet 12.5 mg PO BID 03/18/23 [History Confirmed 04/03/23] mirabegron 50 mg tablet,extended release 24 hr (Myrbetriq) 100 mg PO DAILY 03/18/23 [History Confirmed 04/03/23] omeprazole 40 mg capsule,delayed release 40 mg PO DAILY 03/18/23 [History Confirmed 04/03/23] PFSH Medical History? BPPV (benign paroxysmal positional vertigo) Breast cancer Breast lesion Cardiomyopathy Cerumen impaction Chronic back pain Cough DDD (degenerative disc disease) Degeneration, intervertebral disc, lumbar Diabetes mellitus type 2, controlled, without complications Dry mouth Dysphagia Dysthymia Episodic atrial fibrillation Essential hypertension Fatigue Hyperlipidemia Hypotensive episode Lumbago Melanoma Memory loss Mixed hyperlipidemia Nasal congestion Osteopenia of multiple sites Seasonal affective disorder Sensory urge incontinence Suppurative otitis media of right ear Vertigo Vitamin B12 deficiency Surgical History? History of arthroscopy of left knee History of hysterectomy Hx of cholecystectomy Family History? Mother CVA (cerebral vascular accident)Brother Melanoma Social History? Smoking Status:? Former smoker Tobacco: How many years used:? 20 second hand exposure:? No alcohol intake:? current details:? socially substance use type:? does not use what type of physical activity do you participate in:? walking frequency:? 3-4 times per week pedro/buddhist:? Mandaen seatbelt use:? always HPI HPI HPI: 83-year-old female who I had an opportunity to see in the office on March 18, 2023.? She also saw Dr. Latesha Mccullough on that same day.? Recommendations were to proceed with breast conserving therapy with lumpectomy and sentinel node biopsy.? Great care would need to be taken secondary to the patient's pacemaker on the same side.? For sentinel nodes and being negative then adjuvant radiation therapy could be omitted.? The patient had a breast MRI on April 01, 2023 My previous notes reflect the following 83-year-old female.? November 2022 she had a ultrasound demonstrating a concerning lesion level the left breast.? [facility] in [place] apparently had some difficulty scheduling and she ended up just recently having her biopsy in February.? Pathology as noted below. She is on chronic Eliquis therapy 82 years of age A0, first child was born when she was 31.? She did breast-feed.? She denies any previous breast biopsies.? Not on estrogen medication.? Family history is negative for breast cancer. She does have a history of cardiac myopathy.? Atrial fibrillation.? She is got a defibrillator pacemaker placed left chest.? She states that her fine hairer is at [facility].? She states that the end of last year she had an echocardiogram which she was told was clear. She denies chest pain or shortness of breath.? She is able to climb a flight of stairs. Now it is of note however that she did travel with family to [facility] in [place].? She claims that she felt very fatigued when she was there and that her chronic fatigue continues.? She claims that she had cold-like symptoms 4 weeks prior to that and that she tested once for COVID-19 and was negative.? She continues to complain of severe fatigue of undetermined etiology. 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 Core biopsy was performed March 10, 2023.? This was compared to a previous ultrasound of December 16, 2022.? This was performed at [facility].? Estrogen receptor +91 to 100%.? Progesterone receptor +81 to 90% positive HER2/felton equivocal 2+ I have reviewed images from December 16, 2022 mammogram and ultrasound and ultrasound imaging of March 10, 2023.? The suspicious findings retroareolar left breast with core biopsy images noted. Assessment and Plan (1) Fatigue: ?Status:?Chronic (2) Breast cancer: ?Status:?Acute (3) Chronic anticoagulation: ?Status:?Acute ?Plan: 82-year-old female.? Biopsy identified retroareolar left breast cancer with apparent questionable pathology is whether it is ductal or lobular. Her presentation is complicated by left chest pacemaker defibrillator.? She also has chronic anticoagulation. The patient is also concerned about of severe ongoing chronic fatigue.? Etiology is not clear. I propose for her a bilateral breast MRI.? She will have to be cleared by her fine hairer apparently to proceed with this. She already had an appointment scheduled with Dr. Latesha Mccullough.? I did have an opportunity to talk with him about her.? She may or may not benefit from surgical intervention and that could be a lumpectomy or muted left simple mastectomy so as to not interfere with the pacemaker defibrillator but not required an extensive procedure and not requiring lymph node sampling.? It is of note that if the patient has diagnosed metastatic disease that hormonal therapy will be recommended she may not require surgery at all. I do have concerns about her fatigue and we will refer her back to Dr. Halle New to try to assist with potential termination is etiology.? Would not want to subject the patient to a general anesthesia if there was progressive cardiomyopathy or other.? I am suspicious that the patient may well of had COVID-19 albeit with negative testing. She will be scheduled with another appointment to return to see me to finalize treatment options.? I appreciate the ongoing option of assisting with her surgical care ROS General General: Yes weight change, fatigue and breast cancer; No appetite, colon cancer or weakness HEENT HEENT: Yes difficulty swallowing; No eye injury, eye surgery, swollen glands or hoarseness Endo Endocrine: No thyroid disease, diabetes mellitus, thyroid cancer, Hair loss, heat intolerance or cold intolerance Skin Skin: No rash or changing moles Breast Breast: No left breast lump, right breast lump, nipple discharge, breast pain, abnormal mammogram, abnormal US or breast enlargement Musc Musculoskeletal: Yes back problems and arthritis; No rheumatoid arthritis, gout or joint pain Cardio Cardiovascular: Yes pacemaker, heart disease, atrial fibrillation and high blood pressure; No murmur, heart attack, heart stent, palpitations, shortness of breat with exertion or chest pain Additional Details: defibrillater/pacemmaker Psych Psychiatric: No depression, anxiety or hearing voices Resp Respiratory: No shortness of breath, No sleep apnea, No cough, No COPD, No asthma, No emphysema and No wheezing Gastro Gastrointestinal: No abdominal pain, No nausea or vomiting, No diarrhea, No constipation, No blood in stool, Yes acid reflux, No hemorrhoids, No ulcers, No gallbladder problem and No black,tarry stools Arian Hematologic: Yes blood thinners, No blood disorders, No bleeding, No anemia and No blood clots Neuro Neurologic: No system reviewed and no additional complaints, except as documented, No as per HPI, No abnormal gait, No abnormal hearing, No abnormal movements, No abnormal speech, No behavioral changes, No burning sensations, No confusion, No convulsions, No disequilibrium, No dizziness, No localized weakness, No frequent falls, No headache(s), No lack of coordination, No loss of vision, No memory loss, No numbness, No other visual disturbances, No radicular pain, No restless legs, No sensory deficit, No syncope, No tingling, No tremor(s), No weakness and No other Exam Const General: cooperative, comfortable and no acute distress Nutritional Appearance: overweight HENMT Head: normal to inspection Eyes General: appearance normal, both eyes and all related structures Neck Neck: normal visual inspection Chest Other: Right breast: No focal mass no nipple discharge no axillary clavicular adenopathy Left breast retraction of the areola inferior to the nipple dense fibrous change at that location.? Ecchymosis noted from her previous biopsy done in outside institution.? No other focal masses appreciated.? No axillary clavicular adenopathy. Resp Effort & Inspection: normal respiratory effort Auscultation: clear to auscultation bilaterally Cardio Rate: regular rate Rhythm: regular rhythm GI Inspection: normal to inspection Palpation: soft and no hepatosplenomegaly Skin General: no rashes or lesions noted Neuro General: patient alert, patient awake and patient oriented x3 Extrem General: no calf tenderness Psych Appearance: grossly normal Assessment and Plan Assessment and Plan (1) Breast cancer: ?Status:?Acute ?Plan: I have had a chance to discuss her care with Dr. Latesha Mccullough.? I propose for the patient in order to eradicate the nipple areolar invasion lesion a lumpectomy of sorts which would be a subtotal mastectomy with an elliptical excision of the nipple areolar complex.? I would carry that incision enough laterally in order to do a blue dye and nuclear tracer left axillary sentinel lymph node biopsy.? The patient is aware that if her MRI results demonstrate metastatic disease that we will likely forego surgery.? Because of scheduling limitations I anticipate at the moment placing her on my operative schedule April 06, 2023.? She is aware of the technique, benefit, risk, alternatives.? She is aware that I anticipate placing a drain.? She states that she has 2 daughters that can help provide her with outpatient care.? She has had an opportunity to ask and have questions answered.? We will schedule and proceed as noted.? I appreciate the ongoing option of assisting with her surgical care. Copy: Dr. Halle New and Dr. Latesha Scott M.D., F.A.C.S I have examined the patient and the H&P has been reviewed. There are no clinical changes since date of exam. MRI has been obtained and does not demonstrate any evidence of metastatic breast cancer. This was verbally reported by Dr. Martínez. Nik Scott M.D., F.A.C.S.
--- NOTE | 2023-04-06 11:14 | DCINST_ITS ---
Discharge Instructions Procedure Breast Surgery Diet Discharge Diet: No restrictions Activity Discharge Activity: May Not Drive (for 2-3 days or while taking narcotic pain meds.) Lifting Restrictions: 10 pounds for 1 week. Dressing / Incision Call your doctor if your incision/area has: Continuous Slow Oozing and Sudden Increased Bleeding Call your doctor if you observe: Fever of 101 or Higher Suture Line Care: Avoid Pulling/Pushing and Avoid Pinching/Bending Remove Dressing in: 1 day Additional Dressing/Incision Instructions:: Remove dressings tomorrow. On a daily basis change the dressings, cleanse the drain site with a Q-tip and peroxide and reapply dry gauze and tape making sure to secure the drain with the tape. Empty measure and record drain output and bring that to your office appointment Please call [phone] for an appointment on March. Prior to your appointment please contact the office with a description regarding the amount of drain output that you are having. Please do not get the incision or drain site wet until after discussed at your office appointment. Resume Eliquis on Monday, April 10, 2023 Follow Up Care Test Results: Test results from this visit will be discussed in further detail at your follow- up appointment, if applicable. Discharge Plan Admission Admit Date/Time: 04/06/23 14:22 Primary Reason for Your Visit: Left breast cancer Attending Provider: Nik Scott Primary Care Provider: Halle New Discharge Orders/Prescriptions Prescriptions: New hydrocodone-acetaminophen 5-325 mg tablet 1 tab PO Q6H PRN (Reason: pain) 2 Days Qty: 6 0RF Continued Eliquis 5 mg tablet 5 mg PO BID cholestyramine-aspartame 4 gram powder in packet 4 ea PO BID cholecalciferol (vitamin D3) 1,250 mcg (50,000 unit) capsule 1,250 mcg PO QWEEK Qty: 4 5RF loratadine [Claritin] 10 mg tablet 10 mg PO DAILY omeprazole 40 mg capsule,delayed release(DR/EC) 40 mg PO DAILY Myrbetriq 50 mg tablet extended release 24 hr 100 mg PO DAILY furosemide [Lasix] 40 mg tablet 40 mg PO DAILY [id number] Injectable 1 ea IM QMONTH Entresto 49-51 mg tablet 1 tab PO BID meclizine 25 mg tablet 12.5 mg PO BID carvedilol 25 MG tablet 25 mg PO BID Bydureon 2 MG/0.65 ML pen injector 2 mg SQ SA atorvastatin 40 mg tablet 40 mg PO QHS Referrals / Follow Up: Halle New MD [Primary Care Provider] -
[2023-04-06] MEDS: Cefazolin 2 GM in 0.9% Normal Saline 100 ML IV (12:04)
[2023-04-06] MEDS: Isosulfan Blue 1% 5 ML Vial (12:19)
--- NOTE | 2023-04-06 13:57 | OP.PCM_ITS ---
Report of Operation
--- NOTE | 2023-04-06 13:57 | PCM.OPRPT ---
Report of Operation Date of Procedure: 04/06/23 Pre-Operative Diagnosis: Retroareolar left breast cancer Post-Operative Diagnosis: Same Surgery/Procedure Performed:: Left simple mastectomy with left axillary sentinel lymph node biopsy with nuclear tracer and blue dye Description of Surgical Findings:: Timeout informed consent was obtained. The patient has already had nuclear tracer injected per radiology. She was taken to the operating placed upon the table underwent general anesthesia. 2 g of Ancef were given intravenously. The left arm was carefully wrapped with soft roll and placed at right angles to the table. Isosulfan blue dye was injected retrogradely and massage was performed for 3 minutes. The left breast and axilla were sterilely prepped and draped. A transverse elliptical incision so as to include the nipple areolar complex was performed from close to the sternal margin out laterally to the anterior edge of the latissimus dorsi transfirst ellipse created the superior flap created but rather than taking the flap superiorly to where the pacemaker was then more of a direct dissection down to the chest wall. The fascia was taken with the specimen. Access was now gained to the left axilla and based upon blue dye lymphatic tracking as well as neoprobe tracing was able to identify 2 lymph nodes adjacent to each other. Hemoclips were used for hemostasis and control of what was felt to be lymphatic channels and electrocautery was used to assist with the dissection. Neurovascular structures were preserved. Specimen was excised neoprobe was used to further inspect the left axilla there was no further blue dye tracking or neoprobe signals. The inferior flap then created and the specimen taken with the pectoralis fascia a suture was placed laterally in the specimen. As there was still breast tissue superior and inferiorly by design because of the pacemaker placement and the age of the patient I then placed a drain into the left axilla through a separate stab incision 15 round DANIEL. It was shortened to length. I placed fibrillar in the left axilla as well. The drain was secured with 3-0 nylon. Then the breast tissues were approximated using multiple sutures of 3-0 Vicryl trying to close the space and simultaneously secure the flaps to the chest wall. Subdermal tissues approximated with multiple interrupted 3-0 Vicryl and then where needed interrupted 4-0 Monocryl subdermal stitches. Steri-Strips Telfa bulky dry dressings applied. The gale-incisional areas anesthetized with 1% lidocaine mixed 50-50 with 0.25% Marcaine a total 60 cc was used. Pathology reported that the 2 sentinel node nodes were submitted and that they were on frozen section negative for metastatic disease. Specimen left axillary sentinel nodes and left breast simple mastectomy with known residual breast tissue remaining. Drains 15 round DANIEL to the left axilla. Blood loss 50 cc. She tolerated the procedure well was taken to the recovery room in satisfactory addition apparent complication Synoptic Portion: Element Response Options Operation performed with curative intent. Yes Tracer(s) used to identify sentinel nodes in the upfront surgery (non-neoadjuvant) setting (select all that apply). Blue dye and radioactive tracer Tracer(s) used to identify sentinel nodes in the neoadjuvant setting (select all that apply). Not applicable All nodes (colored or non-colored) present at the end of a dye-filled lymphatic channel were removed. Yes All significantly radioactive nodes were removed. Yes All palpably suspicious nodes were removed. Yes Biopsy-proven positive nodes marked with clips prior to chemotherapy were identified and removed. Not applicable Surgeon: Nik Scott Type of Anesthesia: General and Local Anesthesiologist: Philippe George
[2023-04-06] MEDS: Bupivacaine 0.25% 30 ML Vial (13:58)
[2023-04-06] MEDS: Lidocaine 1% (30 ml sdv) 30 ML Vial (13:58)
[2023-04-06] MEDS: HYDROcodone Bitartrate/Apap 5/325 Tablet PO ×2 (15:58→20:36)
[2023-04-06] MEDS: Carvedilol 25 MG Tablet PO (21:41)
[2023-04-06] MEDS: Atorvastatin Calcium 40 MG Tablet PO (21:41)
[2023-04-06] MEDS: Meclizine HCl 25 MG Tablet 12.5 MG PO (21:42)
[2023-04-06] MEDS: SACUBITRIL/VALSARTAN 49-51 MG TABLET 1 EACH PO (21:42)
[2023-04-07 01:11] VITALS: BP 96/45; PULSE 80; RESP 16; TEMP 36.8; O2SAT 95
[2023-04-07 01:15] VITALS: BMI 33.5
[2023-04-07 04:48] VITALS: BMI 33.5
[2023-04-07 05:27] VITALS: BP 122/47; PULSE 84; RESP 16; TEMP 37; O2SAT 93
--- NOTE | 2023-04-07 05:54 | PCM.PN.SRG ---
Subjective Subjective Patient states that she is glad she stayed overnight. She is noting moderate discomfort currently. She states there is a lot of beats and buzzing overnight, difficult rest Objective Data Objective Data Vital Signs: Vital Signs Temp Pulse Resp BP Pulse Ox O2 Del Method 98.6 F 84 16 122/47 H 93 Room Air 04/07/23 05:27 04/07/23 05:27 04/07/23 05:27 04/07/23 05:27 04/07/23 05:27 04/07/23 05:27 Oxygen Delivery Method Room Air Weight: 166 lb Body Mass Index (BMI) 33.5 Intake & Output: Intake and Output for Last 24 Hours 04/05/23 04/06/23 04/07/23 23:59 23:59 23:59 Intake Total 832.75 / 832.75 300 / 300 Output Total 50 / 50 Balance 782.75 / 782.75 300 / 300 Lab / Micro Data Labs: Laboratory Results - last 24 hr 04/06/23 08:45: Hemoglobin A1c 5.4 04/06/23 08:51: POC Glucose 112 H Radiography Diagnostic Testing: Radiology Impression [place] Node 04/06/23 09:00 IMPRESSION: Subcutaneous injection of 1.2 mCi of technetium labeled sulfur colloid in the periareolar region for sentinel node imaging. Electronically Signed: Jonny Martínez MD at 10:29 EDT , Physical Exam Const oriented x3 Resp Resp Narrative: Dressing clean dry intact left chest. DANIEL output minimal and becoming more clear Assessment & Plan Assessment/Plan (1) Breast cancer: PLAN: Plan for dressing changes this morning and then discharge as patient tolerates. Dissipate office follow-up on , April 09 for hopeful drain removal. Progress at this point is as anticipated. Nik Scott M.D., F.A.C.S.
[2023-04-07] MEDS: HYDROcodone Bitartrate/Apap 5/325 Tablet PO ×2 (06:11→11:27)
--- NOTE | 2023-04-07 09:55 | CASEMGMT ---
BRAXTON JIMENEZ Assessment: Face to Face with pt for initial transition planning/care coordination assessment. RN BARBARA introduced self and role at [facility], pt voices understanding and consents to assessment. Pt is A/O x4 and answers all questions appropriately at this time. Pt sitting up in bed with dtr [place] at bedside. Pt agreeable to assessment with dtr present. Care providers, pharmacy, and demographics verified/updated. Admitting Dx: breast cancer PCP:Shaq Specialists:Tommie, cardio; Sadia, onc; Lb, neuro Preferred Pharmacy: [facility] Insurance: [facility] [facility] Prescription Benefit: yes LNOK: Shanna Fragoso, maxir; maxi Germanr Living Arrangements: Pt lives alone in a single story home with 3 steps to enter with a rail. Pt reports she is I in ADL's and denies concerns at home. Transportation: Pt drives self and denies concerns with transportation. DME/HHC/SNF: Pt has a walker at home but does not use. Pt denies hx of HHC or SNF stays. Pt states no concerns with going home at time of dc. Pt states she feels she will be comfortable with the DANIEL drain after instructions. Pt dtrs are taking turns spending time and assisting pt post surgery. Pt states no further concerns/needs. CM to follow. Advised pt to ask CM if any further question/concerns/needs arise, voices understanding. Pt Goal: Home Plan: Home
--- NOTE | 2023-04-07 10:00 | PCM.PN.BLA ---
Progress Note Patient evaluated resting comfortably in bed. Patient denies any discomfort. She notes pain is much improved. Discharge instructions were reviewed with patient's daughter and patient. Questions were asked and answered fully. Patient is comfortable being discharged.
--- NOTE | 2023-04-07 10:46 | PHA.DC.MC ---
Pharmacy Service has performed discharge medication reconciliation and counseling for this patient. 1. HYDROCODONE/ACETAMINOPHEN 5/325MG 1T PO Q6H PRN PAIN X 2 DAYS The patient's discharge medication list was reviewed for discrepancies and discrepancies were resolved. Home Medications carvedilol 25 mg tablet 25 mg PO BID 11/09/18 exenatide microspheres 2 mg/0.65 mL subcutaneous pen injector (Bydureon) 2 mg SQ SA 11/09/18 apixaban 5 mg tablet (Eliquis) 5 mg PO BID 07/24/22 cholestyramine-aspartame 4 gram oral powder for susp in a packet 4 ea PO BID 07/24/22 cholecalciferol (vitamin D3) 1,250 mcg (50,000 unit) capsule 1,250 mcg PO QWEEK #4 caps 12/15/22 furosemide 40 mg tablet (Lasix) 40 mg PO DAILY 03/17/23 [id number] intramuscular 1 ea IM QMONTH 03/17/23 sacubitril 49 mg-valsartan 51 mg tablet (Entresto) 1 tab PO BID 03/17/23 atorvastatin 40 mg tablet 40 mg PO QHS 03/18/23 loratadine 10 mg tablet (Claritin) 10 mg PO DAILY 03/18/23 meclizine 25 mg tablet 12.5 mg PO BID 03/18/23 mirabegron 50 mg tablet,extended release 24 hr (Myrbetriq) 100 mg PO DAILY 03/18/23 omeprazole 40 mg capsule,delayed release 40 mg PO DAILY 03/18/23 hydrocodone-acetaminophen 5-325mg 5mg-325mg 1 tab PO Q6H PRN pain 2 days #6 tabs 04/06/23 The patient was counseled on the following discharge medications and changes in medications for homegoing were reviewed. The Reason for Use, instructions for use, and potential side effects were reviewed for all new medications. The patient's questions regarding all of their medications were answered. The patient was able to verbally demonstrate an understanding of their discharge medications.
[2023-04-07 11:10] VITALS: BP 102/49; PULSE 72; RESP 18; TEMP 37.1; O2SAT 92
[2023-04-07] MEDS: Mirabegron 50 MG TAB.ER.24H 100 MG PO (11:15)
[2023-04-07] MEDS: Meclizine HCl 25 MG Tablet 12.5 MG PO (11:15)
[2023-04-07] MEDS: Carvedilol 25 MG Tablet PO (11:15)
[2023-04-07] MEDS: Loratadine 10 MG Tablet PO (11:15)
[2023-04-07] MEDS: SACUBITRIL/VALSARTAN 49-51 MG TABLET 1 EACH PO (11:15)
[2023-04-07] MEDS: Pantoprazole Sodium 40 MG Tablet PO (11:16)
[2023-04-07] MEDS: Furosemide 40 MG Tablet PO (11:16)
[2023-04-07 11:29] VITALS: BMI 33.5
--- NOTE | 2023-04-07 11:30 | NURSING ---
dressing/DANIEL dressings changed by Shania LIMON and
[2023-04-07 11:33] VITALS: BP 102/49; PULSE 72; RESP 18; TEMP 37.1; O2SAT 92
--- NOTE | 2023-04-07 11:51 | WOUNDNOTE ---
Was asked to see patient for dressing change and drain care. patient is s/p left mastectomy. removed the wrap and dressings. there was a blister noted to the left posterolateral back at the edge of the tape. moderate serous drainage noted. cleansed blister site with soap and water. pat dry. placed a Mepilex dressing. daughter aware dressing can remain in place until follow up appt. steri strips intact to the surgical site. old dry drainage noted. cleaned around the drain with peroxide as ordered. placed split gauze followed by dry gauze. secured drain dressing with paper tape. placed ABD pads along the incision and reapplied the soft cotton roll. daughter present and plans to assist with drain care. daughter aware to record the DANIEL drainage and bring form to office. pt tolerated well. patient and daughter appreciative of care and deny any further questions at this time. pt has follow up appt with Dr Scott on 04/09/23.
== END 2023-04-07 12:08 | disposition home or self-care (01) | DRG 581 ==
LOC: MS3 17:43
PROVIDERS: Anesthesiology; Admitting Provider Surgery; PCP Internal Medicine; Referring Provider Surgery; Visit Provider Surgery
PROC: (CPT 19307; principal; 2023-04-06 11:45)
DX: C50.912 Malignant neoplasm of unspecified site of left female breast (principal); I42.9 Cardiomyopathy, unspecified; I48.91 Unspecified atrial fibrillation; E11.9 Type 2 diabetes mellitus without complications; R53.83 Other fatigue; Z79.01 Long term (current) use of anticoagulants; Z87.891 Personal history of nicotine dependence; Z82.3 Family history of stroke; Z95.810 Presence of automatic (implantable) cardiac defibrillator; Z80.8 Family history of malignant neoplasm of other organs or systems; Z20.822 Contact with and (suspected) exposure to COVID-19; R94.31 Abnormal electrocardiogram [ECG] [EKG]; Z79.899 Other long term (current) drug therapy; E78.2 Mixed hyperlipidemia; I10 Essential (primary) hypertension
CPT/HCPCS: 19303; 00400; 38525; 38792; 82962; 83036; 88305; 88307; 88331; 88341; 88342; 93005; 94668; 99221; A9541; J7120; G0378; J2405; Q9968

== ENCOUNTER → 2023-05-19 | Outpatient (CLI) | payer MEDICARE, SELFPAY ==
--- NOTE | 2023-05-19 11:01 | BD_ITS ---
STUDY: DUAL ENERGY X-RAY ABSORPTIOMETRY / DXA REASON FOR EXAM: Female, 83 years old. SCREENING TECHNIQUE: Bone Mineral Density (BMD) measurements of lumbar spine and bilateral hips were obtained. COMPARISON: Comparison is made with prior study dated November 12, 2016. FINDINGS: Lumbar Spine (L1-L4): g/cm2 (0.911) / T-score (-1.0) / Z-score (1.7) Findings are suggestive of osteopenia with a low fracture risk. Left Femur Total: g/cm2 (0.795) / T-score (-1.2) / Z-score (1.0) Left Femoral Neck: g/cm2 (0.603) / T-score (-2.2) / Z-score (0.2) Right Femur Total: g/cm2 (0.766) / T-score (-1.4) / Z-score (0.7) Right Femoral Neck: g/cm2 (0.545) / T-score (-2.7) / Z-score (-0.3) The T-Scores on the most recent prior examination were: Lumbar Spine (L1-L4): There has been worsening of bone density since the previous examination. Left Femur Total: which represents a worsening of 13.8%. Right Femur Total: which represents a worsening of 14.2%. BD/Dexa Bone Density Study IMPRESSION: The patient is considered osteoporotic as outlined below according to World Johnnie Organization (WHO) criteria with a high fracture risk. There has been worsening of bone density since the previous examination. Reference Information: The T-score is the number of standard deviations above or below the standard which is normal for young adults at their peak bone mineral density. The World Health Organization (WHO) interprets the T-scores as follows: Above -1 Normal bone density Between -1 and -2.5 Osteopenia Equal to / or below -2.5 Osteoporosis As a practical clinical guideline, osteopenia may be graded as follows: Mild -1 through -1.5 Moderate -1.6 through -2.0 Severe -2.1 through -2.4 The Z-score is the number of standard deviations above or below age-matched controls. A Z-score of less than -1.5 would be considered abnormal. References: 1. NIH Osteoporosis and Related Bone Diseases www osteo.org 2. International Society for Clinical Densitometry www iscd.org 3. National Osteoporosis Foundation www nof.org Electronically Signed: Jonny Martínez MD at 12:37 EDT ,
== END | disposition home or self-care (01) ==
LOC: OPBD 10:49
PROVIDERS: PCP Internal Medicine; Referring Provider Internal Medicine Hematology & Oncology; Visit Provider Internal Medicine Hematology & Oncology
DX: Z78.0 Asymptomatic menopausal state (principal)
CPT/HCPCS: 77080

== ENCOUNTER 2023-06-04 15:00 | Outpatient (RCR) | payer MEDICARE, SELFPAY ==
--- NOTE | 2023-05-27 08:17 | HP.OTEVAL_ITS ---
Patient's Visit Information Visit Information Visit Information: SIMRAN WALDROP is a 83 year old F, referred to Occupational Therapy by IGNACIO Palmer, with a diagnosis of C50.919 Malignant neoplasm if unspecified site if unspecified female breast. Date of Evaluation: 05/26/23 Occupational Therapist Student: Shaina Hernandez Subjective Subjective: Pt seen post total left mastectomy, surgery on April 06, 2023. Pt presented with concerns for swelling/edema in left hand and carpal tunnel syndrome. Pt is completing the walk the wall and chicken wing exercises at home. 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 She has 3 entry steps with a rail on right side. She has a walk-in shower with chair available. Pt is grossly IND with ADL and IADL tasks. Has not been fitted for an edema sleeve or glove. Pt utilizes phone for communication. Pt enjoys spending time with family and goes up/down stairs only when great-grandchildren are visiting. Objective Objective/Observation: Pt able to doff/cinthia sweater with no difficulty. Pt demonstrates BUE WFL. Lymphedema (Circumferential Measure) MCP: Right 19 cm Left 19 cm Wrist: Right 15.5 cm Left 15.5 cm Lower forearm: Right 20.5 cm Left 20.5 cm Largest forearm: Right 27 cm Left 24 cm Elbow: Right 27cm Left 24 cm Largest humerus: Right 35 cm Left 29 cm Axcillary: Right 40.5 cm Left 33 cm Upper Exremity Comments: Pt wearing watch on R wrist versus Left, however dons on L wrist post measurements Sensation Sensation Comments: Some paresthesia noted in L hand Quick DASH-Disab of Arm,Shoulder& Hand Quick DASH Score: 27.2727 Goals Goal: Patient will demonstrate a 20% reduction in edema by discharge: Yes Goal: Patient will demonstrate adequate knowledge of self-massage by the end of the second week.: Yes Goal: Patient will demonstrate adequate knowledge of skin care and precautions by the end of the first week.: Yes Goal: Patient will demonstrate adequate knowledge of therapeutic exercises by discharge.: Yes Goal: Patient will select an appropriate compression garment and demonstrate adequate knowledge of correct donning technique, care and wearing schedule by discharge.: Yes Goal: Patient will voice understanding of need to replace compression garment e very four to six months by discharge.: Yes Goal: Patient will demonstrate ROM WFL by discharge.: Yes Goal:: pt will demo a increase in left shoulder AROM by 30* or greater to increase pts IND with reaching overhead. Rehabilitation General Assessment: Pt presents with minimal edema noted in LUE. pt demo limited understanding of lymphedema dx and scar mtg. pt would benefit from skilled OT services 2-4 visits to ensure Pt demonstrates good understanding of new dx, treatment for life long mtg of lymphedema. Today therapist ed. pt on lymph dx, skin care, lymph stimulation ex. and touch on self manual lymph massage. Pt was given handouts and verbalized understanding however will benefit from further education in techniques. pt ed. on POC and demo understanding agree to POC. Therapy session was directly supervised and approved by Ana FRANCISCO/L,CHT. Rehabilitation Potential: Excellent Anticipated Interventions Anticipated Interventions: A/AAROM/PROM, Strengthening, Scar Care, Joint Protection/Energy Conservation, Ergonomic Education, Education re Diagnosis, Manual Lymph Drainage, Education re Life-long lymphedema Management, Education re Skin Care and Precautions, Education re Self Massage Techniques, Education re Correct Donning Tech,Care&Wearing Sched Comp Garments and Home Program Visit Plan Frequency: 1x/Week Duration: 3 Weeks TEXT: Thank you for the opportunity to evaluate your patient. For Medicare and Medicare HMO plans, please review the plan of care and approve it. It will need to be FAXED BACK to us at [phone] for Medicare purposes. Please let me know if there are questions or concerns regarding this plan of care. Physician Signat ure: Date:
--- NOTE | 2023-11-11 07:52 | HP.OT.NRP ---
Patient Information Patient Information: SIMRAN WALDROP was seen in my office for initial evaluation on 05/26/23. The following Plan of Care was established for this patient: POC Established Initial Frequency: 1x/Week Initial Duration: 3 Weeks Plan: pt may return with compression sleeve for ed on donning Anticipated Interventions Anticipated Interventions: A/AAROM/PROM, Strengthening, Scar Care, Joint Protection/Energy Conservation, Ergonomic Education, Education re Diagnosis, Manual Lymph Drainage, Education re Life-long lymphedema Management, Education re Skin Care and Precautions, Education re Self Massage Techniques, Education re Correct Donning Tech,Care&Wearing Sched Comp Garments and Home Program Last Seen Last Seen: This patient was last seen in our office 06/04/23. Pertinent comments regarding their Occupational therapy will appear below: pt was seen for 2 OT sessions. No further apts have been schedule and due to time lapse in services pt is d/c. At this point I will be discontinuing this patient from occupational therapy. I would be happy to see this patient again in the future if found appropriate by the physician. Thank you! Ana Motta, OTR/L, CHT
== END 2023-06-04 19:00 | disposition home or self-care (01) ==
LOC: OT 15:00
PROVIDERS: PCP Internal Medicine; Referring Provider Nurse Practitioner Family; Visit Provider Nurse Practitioner Family
DX: C50.919 Malignant neoplasm of unspecified site of unspecified female breast (principal); Z90.10 Acquired absence of unspecified breast and nipple
CPT/HCPCS: 97140; 97165; 97166; 97530

== ENCOUNTER → 2023-12-21 | Outpatient (CLI) | payer MEDICARE, SELFPAY ==
--- NOTE | 2023-12-21 11:43 | BI_ITS ---
MAMMOGRAPHY - BILATERAL SCREENING REASON FOR EXAM: Female, 83 years old. Routine annual screening examination. PERTINENT HISTORY: Personal history of breast cancer. Left partial mastectomy and left axillary lymph node resection. TECHNIQUE: Digital bilateral breast yuki (3D mammographic acquisition) in the CC and MLO projections. 2-D mediolateral oblique (MLO) and craniocaudad (CC) views of both breasts were obtained. CAD: Full Field Digital Mammography with Computer Added Detection was performed. COMPARISON: Comparison is made with prior study dated January 06, 2018. FINDINGS: Breast Composition: There are scattered areas of fibroglandular density. There are no dominant masses or suspicious calcifications. The patient is subtotal left mastectomy. A battery pack of a left-sided pacemaker is seen. No other significant abnormalities are identified. BI/SCRN MAMM (CAD)W/YUKI BILAT IMPRESSION: Status post left subtotal mastectomy. Yearly follow-up mammogram recommended. (A) ASSESSMENT CATEGORY: BIRADS Category 2: Benign. A letter regarding these results will be sent to the patient by the facility within 30 days. Approximately 10% of breast cancers are not detected by mammography. A normal mammogram should not delay biopsy of a clinically suspicious abnormality. [id number] Electronically Signed: Jonny Martínez MD at 14:59 EST ,
== END | disposition home or self-care (01) ==
LOC: OPBI 11:43
PROVIDERS: PCP Internal Medicine; Referring Provider Internal Medicine Hematology & Oncology; Visit Provider Internal Medicine Hematology & Oncology
DX: Z12.31 Encounter for screening mammogram for malignant neoplasm of breast (principal); Z85.3 Personal history of malignant neoplasm of breast; Z90.12 Acquired absence of left breast and nipple
CPT/HCPCS: 77063; 77067

== ENCOUNTER → 2024-01-26 | Outpatient (CLI) | payer MEDICARE, SELFPAY ==
[2024-01-29 12:09] LABS: Vitamin D 1,25-Dihydroxy 38.9 pg/mL (24.8-81.5)
== END | disposition home or self-care (01) ==
LOC: MTLAB 15:01
PROVIDERS: PCP Internal Medicine; Referring Provider Psychiatry & Neurology Neurology; Visit Provider Psychiatry & Neurology Neurology
DX: E55.9 Vitamin D deficiency, unspecified (principal)
CPT/HCPCS: 36415; 82652

== ENCOUNTER → 2024-04-14 | Outpatient (CLI) | payer MEDICARE, SELFPAY ==
--- NOTE | 2024-04-14 14:38 | RAD_ITS ---
INDICATION: chronic back pain EXAMINATION/TECHNIQUE: X-RAY - XR Spine Lumbar 2 or 3 Views COMPARISON: Prior study dated: 03/21/2024 FINDINGS: VERTEBRAE: Preserved vertebral body height. No fracture. Grade 1 anterolisthesis of L4 over L5. Facet arthropathy at L4-L5 and L5-S1. Preservation of the normal lumbar lordosis. No substantial scoliosis. DISCS: Narrowing of L4-L5 disc space unchanged. INCLUDED ABDOMEN: Included bowel gas pattern is non-obstructive. Atherosclerotic calcifications of the abdominal aorta. RAD/Lumbar Spine 2 or 3 Views IMPRESSION: Narrowing of L4-5 disc space with grade 1 anterolisthesis of L4 over L5 unchanged Electronically Signed: Dru Carney MD at 8:42 EDT ,
--- NOTE | 2024-04-14 16:47 | CT_ITS ---
INDICATION: Dizziness for 2 weeks EXAMINATION: CT BRAIN - CT Head or Brain W/O Contrast Injection TECHNIQUE: Multiple axial images were obtained of the head without intravenous contrast. A radiation dose optimization technique was used for this scan. IV Contrast dosage and agent: None. COMPARISON: None. FINDINGS: BRAIN PARENCHYMA: No intra- or extra-axial hemorrhage. No evidence of acute infarct. No intracranial mass or mass effect. There is preservation of the thomas/white matter interface. Posterior fossa structures are unremarkable. Volume loss with low attenuation of the periventricular white matter typical of chronic small vessel disease. CSF SPACES: Appropriate for age. No hydrocephalus. Basal cisterns are patent. CALVARIUM, SKULL BASE, PARANASAL SINUSES AND MASTOID AIR CELLS: Clear. No discrete lytic or blastic abnormalities. CT/Brain/Head without Contrast IMPRESSION: Volume loss with chronic white matter changes. No acute intracranial findings. Electronically Signed: Rome Loo MD at 17:47 EDT ,
== END | disposition home or self-care (01) ==
PROVIDERS: PCP Internal Medicine; Referring Provider Internal Medicine; Visit Provider Internal Medicine
DX: H81.11 Benign paroxysmal vertigo, right ear (principal)
CPT/HCPCS: 70450; 72100

== ENCOUNTER 2024-06-14 12:30 | Outpatient (RCR) | payer MEDICARE, SELFPAY ==
--- NOTE | 2024-04-15 14:16 | HP.PTEVAL ---
Patient's Visit Information Visit Information Visit Information: SIMRAN WALDROP is a 84 year old F referred to Physical Therapy by Dr. Halle New MD with a diagnosis of vertigo, Eply. Date of Evaluation: 04/15/24 Physical Therapist: RANULFO Taylor Visit Plan Frequency: 2x /Week Duration: 6 Weeks Plan: 2X/ week for 5-6 weeks for positional vertigo treatment, testing of her balance and HEP if need be Subjective Subjective: Pt started to have dizziness about 2 weeks ago. She has dizziness that lasts less than 1 min when she rolls to her L side (room spinning). When she gets out of a chair she has to be careful or she will start spinning. She has to be next to the wall when walking through the house. Her daughters took her rugs so she will not trip. She feel 2 weeks ago and slipped off the edge of the bed and hit her tailbone. She crawled and was on the floor for 6 hours. She did not hit her head. Her daughter came and found her on the floor. Objective Objective: + L Hallpike for torsional nystagmus that lasted approx 45 seconds. Treated with L Eply (hard to get pt fully to her L side). Retested L Hallpike and was positive again for torsional nystagmus that lasted approx 45 seconds again. Treated again with L Eply. Let pt go for the day but she said she felt less wobbly and better. Balance/Special Test Scores Dizziness Score: 24 Goals Goal 1:: I HEP Goal Time Frame: 4-6 Weeks Goal 2:: Abolish +Hallpike Goal Time Frame: 4-6 Weeks Goal 3:: Pt to feel less wobbly and dizzy with sit to stand and walking Goal Time Frame: 4-6 Weeks Goal 4:: Pt to be able to roll over in bed to the L without room spinning dizziness Rehabilitation Potential Rehabilitation Potential: Good Anticipated Interventions Patient/Client Instruction: Educate patient on: Condition and Plan of Care For the Purpose of:: To improve ability to perform ADL's, To increase tolerance to activity/condition/position, To improve performance and independence with ADL's, To improve gait and locomotor functions, To improve balance and To improve safety with gait Therapeutic Exercise to Include: Strength training, Balance training, Body mechanics, Postural training, Gait and locomotor training and Neuromotor development For the Purpose of:: To improve gait and locomotor functions, To improve health of tissue, To improve endurance and To improve balance Functional Training to Include: Gait training For the Purpose of:: To improve gait and locomotor functions Manual Therapy Techniques to Include: Other Comment: eply For the Purpose of:: To improve gait and locomotor functions and To improve safety with gait Text: Thank you for the opportunity to evaluate your patient. For Medicare and Medicare HMO plans, please review the plan of care and approve it. It will need to be FAXED BACK to us at [phone] for Medicare purposes. For Medicare only, by signing this I certify the plan of care. Please let me know if there are questions or concerns regarding this plan of care. Physician Signature: Date:
--- NOTE | 2024-05-16 16:25 | HP.PTREVAL ---
Re-Evaluation Intro: Dr. Halle New MD, It has been my pleasure to treat SIMRAN WALDROP over the last 8 visits for vertigo, Eply. Please see the progress note below for an update on the physical therapy plan of care! Subjective Subjective: Pt reports that her balance is better. She has no dizziness rolling over in bed. She is tired from her granddaughters graduation. Pt felt very challenged last visit and loved it Objective Objective/Function: FGA 18 Pt veers with vertical and horizontal head turns Stairs: has to pull self up the step and on descending she is very cautious. Some hsitancy on curb steps Plan Plan Plan: 1X/ week for 3 more weeks for high level balance with walking in different directions and change positions, walking with head turns, walking BW, stairs, curb steps and other high level balance activities with HEP Balance/Gait/Functional tests Balance/Special Test Scores Functional Gait Assessment Score: 18 % Disability: 40.0000 Dizziness Score: 6 TUG Test Time Seconds: 10.25 Tug Test: <20 sec.=mostly independent 30 Second Chair Rise Test Seconds: 16 Goals Goals Goal 1:: I HEP Goal Time Frame: 4-6 Weeks Goal Progress: Goal Met Goal 2:: Abolish +Hallpike Goal Time Frame: 4-6 Weeks Goal Progress: Goal Met Goal 3:: Pt to feel less wobbly and dizzy with sit to stand and walking Goal Time Frame: 4-6 Weeks Goal Progress: Goal Met Goal 4:: Pt to be able to roll over in bed to the L without room spinning dizziness Goal Progress: Goal Met Goal 5:: Increase FGA score by 2 points (score was 18) Goal Time Frame: 2-4 Weeks Anticipated Interventions Anticipated Interventions Patient/Client Instruction: Educate patient on: Condition and Plan of Care For the Purpose of:: To improve ability to perform ADL's, To increase tolerance to activity/condition/position, To improve performance and independence with ADL's, To improve gait and locomotor functions, To improve balance and To improve safety with gait Therapeutic Exercise to Include: Strength training, Balance training, Body mechanics, Postural training, Gait and locomotor training and Neuromotor development For the Purpose of:: To improve gait and locomotor functions, To improve health of tissue, To improve endurance and To improve balance Functional Training to Include: Gait training For the Purpose of:: To improve gait and locomotor functions Manual Therapy Techniques to Include: Other Comment: eply For the Purpose of:: To improve gait and locomotor functions and To improve safety with gait Re-Evaluation Ending Re-evaluation ending: Please do not hesitate to contact me at [phone] by phone or if you have questions or concerns regarding this new plan of care! Sincerely, Maira Leon MPT
--- NOTE | 2024-06-14 13:55 | HP.PTDCSUM_ITS ---
Discharge Summary D/C summary: It has been my pleasure to treat SIMRAN WALDROP referred by Dr. Halle New MD, with the diagnosis of vertigo, Eply for a total of 11 visit(s). Discharge Date: 06/14/24 Please see the following information for a summary of their discharge status. Subjective Subjective: Pt reports that she is still SOB and tired and she sees corporate real estate specialist on Thursday. She has no dizziness and balance decent, not perfect...she is still careful Pain back pain: Pain Intensity (Out of 10): 0 Overall Improvement % Improvement: 75 Objective Objective/Function: FGA: 20 Goals Goal 1:: I HEP Goal Progress: Goal Met Goal 2:: Abolish +Hallpike Goal Progress: Goal Met Goal 3:: Pt to feel less wobbly and dizzy with sit to stand and walking Goal Progress: Goal Met Goal 4:: Pt to be able to roll over in bed to the L without room spinning dizziness Goal Progress: Goal Met Goal 5:: Increase FGA score by 2 points (score was 18) Goal Progress: Goal Met Plan Plan: 1X/ week for 3 more weeks for high level balance with walking in different directions and change positions, walking with head turns, walking BW, stairs, curb steps and other high level balance activities with HEP D/C Information Discharge Comments: DC PT to HEP d/c sentence: If there are questions or concerns regarding this patient's physical therapy, please feel free to call me at [phone]. Thank you for the referral of this patient. Sincerely, Maira Leon, MPT Balance/Gait/Functional tests Balance/Special Test Scores Functional Gait Assessment Score: 20 % Disability: 33.3400 Dizziness Score: 8 TUG Test Time Seconds: 10.25 Tug Test: <20 sec.=mostly independent 30 Second Chair Rise Test Seconds: 16 Improvement % Improvement: 75
== END 2024-06-14 19:00 | disposition home or self-care (01) ==
LOC: PT 12:30
PROVIDERS: PCP Internal Medicine; Referring Provider Internal Medicine; Visit Provider Internal Medicine
DX: R42 Dizziness and giddiness (principal); R29.6 Repeated falls; R53.1 Weakness
CPT/HCPCS: 97110; 97116; 97161; 97530

== ENCOUNTER → 2024-09-12 | Outpatient (CLI) | payer MEDICARE, SELFPAY ==
[2024-09-12 17:05] LABS: Absolute Lymphocyte Count 2.55 X10^3/uL (0.83-4.51); Absolute Neutrophil Count 5.4 X10^3/uL (2.0-7.7); Basophil# 0.05 X10^3/uL; Basophil% 0.6 % (0-1); Eosinophil# 0.08 X10^3/uL; Eosinophils% 0.9 % (0-5); Hemoglobin 14.3 g/dL (12.0-15.0); Lymphocyte # 2.55 X10^3/ul (0.83-4.51); Lymphocyte % 28.3 % (19-41); Mean Corp Hgb Conc 33.3 g/dL (32-36); Mean Corpuscular Hgb 29.9 pg (27.0-32.0); Mean Corpuscular Volume 89.8 fL (81-99); Mean Platelet Vol. 10.8 fl (6.2-12.0); Monocyte# 0.91 X10^3/uL; Monocyte% 10.1 % (0-10); NRBC Flagged by Analyzer 0 % (0-5); Neutrophil # 5.38 X10^3/uL (2.7-7.7); Neutrophil % 59.8 % (47-70); Platelet Count 162 K/mm3 (150-450); RBC Distribution Width CV 14.2 % (11.6-14.6); RBC Distribution Width SD 46.6 fl (35.1-43.9); Red Blood Count 4.79 M/mm3 (4.2-5.4)
[2024-09-12 17:13] LABS: Erythrocyte Sedimentation Rate 4 mm/hr (0-30); POSITIVE COUNT NO; POSITIVE DIFFERENTIAL NO; POSITIVE MORPHOLOGY NO
[2024-09-12 17:21] LABS: ALB/GLOB Ratio 1.1 RATIO (0.9-2.4); AST(SGOT) 12 U/L (15-37); Alanine Aminotransfer ALT/SGPT 20 U/L (13-56); Albumin, Serum 3.9 g/dL (3.2-5.0); Alkaline Phosphatase 113 U/L (45-117); Amylase 44 U/L (25-115); Anion Gap 11 (5-15); BUN 60 mg/dL (7-18); BUN/Creat Ratio 18.2 RATIO (10-20); Chloride 110 mmol/L (98-107); EST Glomerular Filtration Rate 14 mL/min (>60); Est Glom Filt Rate - Afr Amer 17 mL/min (>60); Globulin 3.5 g/dL (2.2-4.2); Glucose 106 mg/dL (74-106); Lipase 29 U/L (13-75); Potassium 3.6 mmol/L (3.5-5.1); Protein, Total 7.4 g/dL (6.4-8.2); Sodium Level 140 mmol/L (136-145)
== END | disposition home or self-care (01) ==
LOC: LAB 16:46
PROVIDERS: PCP Internal Medicine; Referring Provider Internal Medicine; Visit Provider Internal Medicine
DX: R11.2 Nausea with vomiting, unspecified (principal)
CPT/HCPCS: 36415; 80053; 82150; 83690; 85025; 85652

== ENCOUNTER 2024-09-13 02:21 | Observation (INO) | payer MEDICARE, SELFPAY ==
[2024-09-13] MEDS: 0.9% Normal Saline (1000mL) 1,000 ML 100 ML IV ×2 (02:00→12:25)
[2024-09-13 02:08] VITALS: BP 110/68; PULSE 88; RESP 18; TEMP 36.3; O2SAT 97
--- NOTE | 2024-09-13 02:13 | PCM.HP.STD ---
HPI - General General Date of Admission: 09/13/24 Date of Service: 09/13/24 Chief Complaint: Acute renal failure HPI Narrative SIMRAN WALDROP, is a 84 F who presents to our facility via squad from outside hospital due to requested transfer for abnormal labs. Patient was seen by her primary care physician and labs were obtained that showed an abnormal creatinine of 3.36. Patient has no significant past medical history of renal failure prior to this. She states last she was driving home from [facility] and decided to stop drinking because she did not want to stop and make rest stops. Following this episode she became more dehydrated and found herself having nausea and vomiting for the past 2 days. The patient does have a history of atrial fibrillation and hypertension as well. Patient states her transfer by squad was uneventful and denies any pain at present time. Due to her abnormal creatinine level it was felt by the outside hospital that she needed to be transferred not knowing how much care she might need to treat her renal failure. Patient denies any chest pain, shortness of breath, fevers or chills, she was treated for a UTI at the outside hospital and will continue to do so here. [facility] Medical History Arthritis Back pain Bladder disease BPPV (benign paroxysmal positional vertigo) Breast cancer Breast lesion Cancer Cardiology follow-up encounter Cardiomyopathy DDD (degenerative disc disease) Diabetes Dietary restriction Dry mouth Dysphagia Dysthymia Encounter for education Episodic atrial fibrillation Essential hypertension Fatigue Former smoker Gastric reflux History of atrial fibrillation History of echocardiogram History of IBS History of stress test Hoarseness Hyperlipidemia Hypotensive episode Lumbago Melanoma Memory loss Mixed hyperlipidemia Osteopenia of multiple sites Seasonal affective disorder Suppurative otitis media of right ear Vertigo Vitamin B12 deficiency Wears glasses Wears partial dentures Home Medications ?Medication ?Instructions ?Recorded ?Last Taken ?Type carvedilol 25 mg tablet 25 mg PO BID 11/09/18 09/12/24 History apixaban 5 mg tablet (Eliquis) 5 mg PO BID 07/24/22 09/12/24 History cholestyramine-aspartame 4 gram 4 ea PO BID 07/24/22 09/12/24 History oral powder for susp in a packet furosemide 40 mg tablet (Lasix) 40 mg PO DAILY 03/17/23 09/12/24 History sacubitril 49 mg-valsartan 51 mg 1 tab PO BID 03/17/23 09/12/24 History tablet (Entresto) atorvastatin 40 mg tablet 40 mg PO QHS 03/18/23 Unknown History omeprazole 40 mg capsule,delayed 40 mg PO DAILY 03/18/23 09/12/24 History release cholecalciferol (vitamin D3) 1,250 1,250 mcg PO QWEEK #4 caps 01/19/24 09/12/24 Rx mcg (50,000 unit) capsule meclizine 25 mg tablet 25 mg PO BID #60 tabs 01/19/24 09/12/24 Rx vibegron 75 mg tablet (Gemtesa) 75 mg PO DAILY 03/28/24 09/12/24 History exemestane 25 mg tablet 25 mg PO DAILY #90 TABLETS 06/27/24 09/12/24 Rx Allergy/AdvReac Type Severity Reaction Status Date / Time LARISSA Inhibitors AdvReac Severe cough Verified 03/28/24 14:01 chlorpromazine (From AdvReac Severe Itching Verified 03/28/24 14:01 Thorazine) lisinopril AdvReac Severe COUGH Verified 03/28/24 14:01 prochlorperazine (From AdvReac Severe Itching Verified 03/28/24 14:01 Compazine) oxybutynin AdvReac Intermediate NEEDS Verified 03/28/24 14:01 FOLLOW-UP Family History Mother CVA (cerebral vascular accident) Brother Melanoma Surgical History History of arthroscopy of left knee History of cardiac catheterization History of cystoscopy History of hysterectomy History of implantable cardiac defibrillator (ICD) History of mastectomy Hx of cholecystectomy Hx of colonoscopy Hx of foot surgery Status post left mastectomy Social History Smoking Status: Former smoker Tobacco: How many years used: 20 second hand exposure: No alcohol intake: current details: socially substance use type: does not use what type of physical activity do you participate in: walking frequency: 3-4 times per week pedro/taoism: Hoahaoism seatbelt use: always ROS Constitutional Constitutional: Denies chills or fever(s) Eyes Eyes: Denies blurry vision ENT HEENT: Denies abnormal hearing Cardiovascular Cardiovascular: Denies chest pain Respiratory/Chest Respiratory/Chest: Denies cough Gastrointestinal Gastrointestinal: Reports nausea and vomiting Genitourinary Genitourinary: Reports dysuria and oliguria Musculoskeletal Musculoskeletal: Denies back pain Integumentary Integumentary: Reports dry skin Neurologic Neurologic: Denies abnormal gait Psychiatric Psychiatric: Denies anxiety Vital Signs Vital Signs Vital Signs: 09/13/24 02:08 Temperature 97.4 F L Temperature Source Oral Pulse Rate 88 Respiratory Rate 18 Blood Pressure 110/68 Blood Pressure Mean 82 Blood Pressure Source Manual Blood Pressure Position Semi-Fowlers Blood Pressure Location Right Arm Pulse Ox 97 Oxygen Delivery Method Room Air Physical Exam Const oriented x3 General Appearance: cooperative and well developed HEENT normocephalic and head/scalp atraumatic Eyes PERRL Neck no lymphadenopathy Lymph Lymphatic: no lymphadenopathy noted Resp normal respiratory effort, normal air movement and clear to auscultation bilaterally Cardio S1 normal heart sound and S2 normal heart sound Rhythm: abnormal rhythm irregularly irregular GI normal to inspection, nondistended, normoactive bowel sounds, soft to palpation, non-tender and non-distended Extremity normal capillary refill Skin General Skin Exam: no breakdown Neuro no focal motor deficits and no sensory deficits noted Assessment & Plan Assessment/Plan (1) ARF (acute renal failure): (2) UTI (urinary tract infection): PLAN: Plan 1 acute renal failure secondary to dehydration?admit patient to progressive care unit due to history of atrial fibrillation as well. IV fluids normal saline due to current shortages will be conservative at 100 cc/h, repeat BMP and CBC in the a.m. will encourage p.o. intake as tolerated 2. UTI Rocephin 1 g IV every 24 hour 3. Atrial fibrillation?rate is controlled we will continue current medications 4. DVT prophylaxis?will continue anticoagulation 5. Nausea?will add ondansetron 4 mg IV every 8 hours as needed Charges/Coding Visit Charges Inpatient E&M: 67506 Init Hosp L2
[2024-09-13 02:25] VITALS: BMI 31.1
[2024-09-13 06:00] VITALS: BP 108/86; PULSE 88; RESP 18; TEMP 36.5; O2SAT 97
[2024-09-13 06:30] LABS: Absolute Neutrophil Count 4.8 X10^3/uL (2.0-7.7); Basophil# 0.03 X10^3/uL; Basophil% 0.4 % (0-1); Eosinophil# 0.08 X10^3/uL; Eosinophils% 0.9 % (0-5); Hematocrit 36.5 % (37-47); Hemoglobin 12.2 g/dL (12.0-15.0); Lymphocyte % 29.7 % (19-41); Mean Corp Hgb Conc 33.4 g/dL (32-36); Mean Corpuscular Volume 89.9 fL (81-99); Monocyte# 0.99 X10^3/uL; Monocyte% 11.7 % (0-10); NRBC Flagged by Analyzer 0 % (0-5); Neutrophil # 4.79 X10^3/uL (2.7-7.7); Neutrophil % 56.8 % (47-70); Platelet Count 147 K/mm3 (150-450); RBC Distribution Width CV 14.4 % (11.6-14.6); RBC Distribution Width SD 47.4 fl (35.1-43.9); Red Blood Count 4.06 M/mm3 (4.2-5.4); White Blood Count 8.4 K/mm3 (4.4-11.0)
[2024-09-13 06:37] LABS: Anion Gap 9 (5-15); BUN 54 mg/dL (7-18); BUN/Creat Ratio 23.8 RATIO (10-20); Calcium,Total 8.1 mg/dL (8.5-10.1); Chloride 117 mmol/L (98-107); Creatinine, Serum 2.27 mg/dL (0.55-1.02); EST Glomerular Filtration Rate 22 mL/min (>60); Est Glom Filt Rate - Afr Amer 26 mL/min (>60); Glucose 87 mg/dL (74-106); Sodium Level 142 mmol/L (136-145)
[2024-09-13] MEDS: Cholestyramine/Sucrose 4 GM/PACKET PO ×2 (10:22→16:52)
[2024-09-13] MEDS: APIXABAN 5 MG TABLET PO ×2 (10:22→21:47)
[2024-09-13] MEDS: Meclizine HCl 25 MG Tablet PO ×2 (10:22→21:47)
[2024-09-13] MEDS: Pantoprazole Sodium 40 MG Tablet PO (10:23)
[2024-09-13] MEDS: SACUBITRIL/VALSARTAN 49-51 MG TABLET 1 EACH PO ×2 (10:23→21:47)
[2024-09-13] MEDS: Ceftriaxone 1 GM/50 ML BAG IV (10:23)
[2024-09-13] MEDS: Ondansetron 4 MG/2 ML Vial IV (10:31)
--- NOTE | 2024-09-13 11:10 | CASEMGMT ---
BRAXTON JIMENEZ Assessment: Face to Face with pt for initial transition planning/care coordination assessment. RN BARBARA introduced self and role at [facility], pt voices understanding and consents to assessment. Pt is A&O x4 and answers all questions appropriately at this time. Pt sitting up in chair in no distress. Care providers, pharmacy, and demographics verified/updated. Strata: 1 Admitting Dx: Acute renal failure, UTI PCP: Shaq Specialists: Sadia, Oncologist; Lb, Neurologist; Tommie, Overlock Elastic Attacher. Preferred Pharmacy: [facility] Insurance: [employer] [facility] Prescription Benefit: yes LNOK: Daughters Shanna and Virginia Living Arrangements: Pt lives alone in a 1 story home with 5 steps to enter. ADLs: Pt states I at baseline with ADLs and IADLs. Transportation: Pt drives self and denies concerns with transportation. DME: [facility] HHC/SNF: Denies Hx of. Pt states no concerns with going home at time of dc. Pt states no further concerns/needs. CM to follow. Advised pt to ask CM if any further question/concerns/needs arise, voices understanding. Pt Goal: Home Plan: Home, follow plan of care. Ana LIMON CM
[2024-09-13 11:58] VITALS: BP 91/56; PULSE 84; RESP 16; TEMP 36.3; O2SAT 97
[2024-09-13] MEDS: FLU VACCINE **HIGH DOSE** TV 24-25 180 MCG/0.5 ML SYRINGE IM (12:25)
[2024-09-13 17:00] VITALS: BP 113/59; PULSE 85; RESP 16; TEMP 36.6; O2SAT 97
--- NOTE | 2024-09-13 17:54 | PN.HOSP_ITS ---
Hospitalist Note Patient was seen and examined today, her creatinine is improved, I talked briefly with her daughter who was in the room at the time my examination. Patient will be seen by PT. Patient is on 2 different diuretics at home according to the patient's daughter, she is on spironolactone and furosemide. Patient does see a after school program assistant in [place] but she does not know if her ejection fraction is low. She is however on Entresto. I will continue present fluid administration and repeat her BMP tomorrow.
[2024-09-13 21:46] VITALS: BP 116/65; PULSE 88; RESP 18; TEMP 36.4; O2SAT 98
[2024-09-13] MEDS: Atorvastatin Calcium 40 MG Tablet PO (21:47)
[2024-09-14 03:30] VITALS: BP 106/58; PULSE 86; RESP 18; TEMP 36.4; O2SAT 96
[2024-09-14 06:14] LABS: Anion Gap 8 (5-15); BUN 36 mg/dL (7-18); BUN/Creat Ratio 27.1 RATIO (10-20); Calcium,Total 8.1 mg/dL (8.5-10.1); Chloride 119 mmol/L (98-107); Creatinine, Serum 1.33 mg/dL (0.55-1.02); EST Glomerular Filtration Rate 41 mL/min (>60); Est Glom Filt Rate - Afr Amer 49 mL/min (>60); Estimated Creatinine Clearance 27.47 ml/min; Glucose 99 mg/dL (74-106); Potassium 3.1 mmol/L (3.5-5.1); Sodium Level 144 mmol/L (136-145)
[2024-09-14] MEDS: Cholestyramine/Sucrose 4 GM/PACKET PO (08:03)
[2024-09-14] MEDS: Meclizine HCl 25 MG Tablet PO (09:14)
[2024-09-14] MEDS: SACUBITRIL/VALSARTAN 49-51 MG TABLET 1 EACH PO (09:14)
[2024-09-14] MEDS: APIXABAN 5 MG TABLET PO (09:14)
[2024-09-14] MEDS: Pantoprazole Sodium 40 MG Tablet PO (09:14)
[2024-09-14 10:00] VITALS: BP 113/79; PULSE 91; RESP 16; TEMP 36.1; O2SAT 98
[2024-09-14] MEDS: Cephalexin 500 MG Capsule PO (10:04)
--- NOTE | 2024-09-14 10:14 | DCINST_ITS ---
Discharge Instructions Diet Discharge Diet: No restrictions Activity Discharge Activity: Return to Normal Activity Weight Bearing Status: Full weight bearing Follow Up Care Test Results: Test results from this visit will be discussed in further detail at your follow- up appointment, if applicable. Discharge Plan Admission Admit Date/Time: 09/13/24 02:21 Primary Reason for Your Visit: acute kidney injury Attending Provider: Saman Muñoz Primary Care Provider: Halle New Consulting Providers: Basilio Baum Instructions Additional Instructions / Restrictions: follow up with your veterinary technology instructor regarding your Furosemide use Discharge Orders/Prescriptions Prescriptions: New cephalexin 500 mg Capsule 500 mg PO Q12 Qty: 13 0RF Rx Instructions: start in the evening 09/14/24 Continued Eliquis 5 mg tablet 5 mg PO BID cholestyramine-aspartame 4 gram powder in packet 4 ea PO BID omeprazole 40 mg capsule,delayed release(DR/EC) 40 mg PO DAILY Entresto 49-51 mg tablet 1 tab PO BID cholecalciferol (vitamin D3) 1,250 mcg (50,000 unit) capsule 1,250 mcg PO QWEEK Qty: 4 11RF meclizine 25 mg tablet 25 mg PO BID Qty: 60 11RF Gemtesa 75 mg tablet 75 mg PO DAILY carvedilol 25 MG tablet 25 mg PO BID atorvastatin 40 mg tablet 40 mg PO QHS exemestane 25 mg tablet 25 mg PO DAILY Qty: 90 1RF Discontinued furosemide [Lasix] 40 mg tablet 40 mg PO DAILY Referrals / Follow Up: Halle New MD [Primary Care Provider] - Within 2 Weeks (get your BMP rechecked) Disposition Disposition (needs filled in before D/C Order can be placed): Home, Self Care
--- NOTE | 2024-09-14 10:37 | DS.PCM_ITS ---
Providers Date of Admission: 09/13/24 Date of Discharge: 09/14/24 Primary Care Physician: Dr. Halle New MD Reason For Visit: ACUTE RENAL FAILURE, UTI Diagnosis Discharge Diagnosis (1) ARF (acute renal failure): Status: Acute Code(s): N17.9 - Acute kidney failure, unspecified (2) UTI (urinary tract infection): Status: Acute Code(s): N39.0 - Urinary tract infection, site not specified Plan 1. Acute kidney injury #2 dilated cardiomyopathy #3 acute cystitis #4 paroxysmal A-fib Medications at Discharge Home Medications carvedilol 25 mg tablet 25 mg PO BID 11/09/18 apixaban 5 mg tablet (Eliquis) 5 mg PO BID 07/24/22 cholestyramine-aspartame 4 gram oral powder for susp in a packet 4 ea PO BID 07/24/22 sacubitril 49 mg-valsartan 51 mg tablet (Entresto) 1 tab PO BID 03/17/23 atorvastatin 40 mg tablet 40 mg PO QHS 03/18/23 omeprazole 40 mg capsule,delayed release 40 mg PO DAILY 03/18/23 cholecalciferol (vitamin D3) 1,250 mcg (50,000 unit) capsule 1,250 mcg PO QWEEK #4 caps 01/19/24 meclizine 25 mg tablet 25 mg PO BID #60 tabs 01/19/24 vibegron 75 mg tablet (Gemtesa) 75 mg PO DAILY 03/28/24 exemestane 25 mg tablet 25 mg PO DAILY #90 TABLETS 06/27/24 cephalexin 500 mg capsule 500 mg PO Q12 #13 caps 09/14/24 Hospital Course Operations None Procedures None Summary of Care Provided Minutes Spent on Discharge: 30 Hospital Course: This 84-year-old white female was directly admitted to PCU from an outside hospital ([facility]) due to acute cystitis, elevated creatinine and BUN with suspected acute kidney injury. Patient was admitted to PCU, she was maintained on IV Rocephin for cystitis and given IV fluids and her labs were monitored. She was seen in consultation by PT. Patient's labs normalized, this examiner felt that the patient did not require continued use of furosemide as an outpatient due to the fact her most recent echocardiogram done this year showed a normal ejection fraction. Patient does see a second steward in [place] and has an upcoming appointment in approximately 2 weeks. On 09/14/2024, patient was seen and examined: On examination she appeared in good health and spirits, she does not appear to be in any distress. Vital signs as documented. Skin warm and dry and without overt rashes. Neck without JVD, thyroid appears normal, trachea is midline, neck is supple. Lungs clear, normal air movement was noted. Heart exam notable for regular rhythm, normal sounds and absence of murmurs, rubs or gallops. Abdomen unremarkable and without evidence of organomegaly, masses, or abdominal aortic enlargement, bowel sounds are present in all 4 quadrants, no abdominal tenderness was noted. Extremities nonedematous, no cyanosis was noted, no clubbing was noted. Neuro: Cranial nerves II through XII are grossly intact, no focal motor deficits were noted, sensation to light touch and pinprick is intact, motor exam 5/5 throughout. Psych: Patient is alert and oriented x3, she does not appear anxious or depressed, she does not appear agitated. Patient was felt to be stable for discharge home on 09/14/2024-she requested PT as an outpatient and a prescription was provided for her. Weight / BMI Weight Weight: 67.5 kg Body Mass Index (BMI) 31.1 ABG / Lab / Microbiology Data 09/13/24 05:39 09/14/24 05:10 Laboratory: Laboratory Results - last 24 hr 09/14/24 05:10: Sodium 144, Potassium 3.1 L, Chloride 119 H, Carbon Dioxide 18.0 L, Anion Gap 8, BUN 36 H, Creatinine 1.33 H, Estim Creat Clear Calc 27.47, Est GFR (MDRD) Af Amer 49 L, Est GFR (MDRD) Non-Af 41 L, BUN/Creatinine Ratio 27.1 H , Glucose 99, Calcium 8.1 L D/C Instructions Discharge Diet: No restrictions Weight Bearing Status: Full weight bearing Meaningful Use Info Meaningful Use Meaningful Use Diagnoses (Choose all that apply): None applicable Ischemic Stroke Statin Dosing Therapy Reference: STATIN DOSE THERAPY REFERENCE: * Patients > 75 years receive moderate or high dose statin therapy. * Patients 75 years or YOUNGER should receive HIGH intensity statin dose unless contraindicated. You will be required to document reason for non-treatment if statin daily dose does not meet guidelines. HIGH DOSE STATIN THERAPY DAILY Atorvastatin > than or = to 40 mg Rosuvastatin > than or = to 20 mg Amlodipine + Atorvastatin > than or = to 2.5/40 mg Ezetimibe + Simvastatin 10/80 mg Simvastatin 80mg Discharge Plan Admission Admit Date/Time: 09/13/24 02:21 Primary Reason for Your Visit: acute kidney injury Attending Provider: Saman Muñoz Primary Care Provider: Halle New Consulting Providers: Basilio Baum Instructions Additional Instructions / Restrictions: follow up with your second steward regarding your Furosemide use Discharge Orders/Prescriptions Prescriptions: New cephalexin 500 mg Capsule 500 mg PO Q12 Qty: 13 0RF Rx Instructions: start in the evening 09/14/24 Continued Eliquis 5 mg tablet 5 mg PO BID cholestyramine-aspartame 4 gram powder in packet 4 ea PO BID omeprazole 40 mg capsule,delayed release(DR/EC) 40 mg PO DAILY Entresto 49-51 mg tablet 1 tab PO BID cholecalciferol (vitamin D3) 1,250 mcg (50,000 unit) capsule 1,250 mcg PO QWEEK Qty: 4 11RF meclizine 25 mg tablet 25 mg PO BID Qty: 60 11RF Gemtesa 75 mg tablet 75 mg PO DAILY carvedilol 25 MG tablet 25 mg PO BID atorvastatin 40 mg tablet 40 mg PO QHS exemestane 25 mg tablet 25 mg PO DAILY Qty: 90 1RF Discontinued furosemide [Lasix] 40 mg tablet 40 mg PO DAILY Referrals / Follow Up: Halle New MD [Primary Care Provider] - Within 2 Weeks (get your BMP rechecked) Disposition Disposition (needs filled in before D/C Order can be placed): Home, Self Care Charges/Coding Visit Charges Inpatient E&M: 63838 Disch Hosp
--- NOTE | 2024-09-14 11:31 | CASEMGMT ---
BRAXTON JIMENEZ Assessment: Face to Face with pt for initial transition planning/care coordination assessment. RN BARBARA introduced self and role at [facility], pt voices understanding and consents to assessment. Pt is A&O x4 and answers all questions appropriately at this time. Pt sitting up in chair. RN BARBARA in room who states therapy recommended outpt therapy. Care providers, pharmacy, and demographics verified/updated. Admitting Dx: acute renal failure, UTI Strata Score: 2 PCP:Shaq Specialists:Oni, cardio; Lb, neuro; Sadia, onc Preferred Pharmacy: [facility] Insurance: [employer] [facility] Prescription Benefit: yes LNOK: Shanna Fragoso dtr; Virginia Padilla dtr Living Arrangements: Pt lives alone in a single story home with 5 steps to enter with a rail. Pt reports she is I in ADLs and denies concerns at home. Transportation: Pt drives self and denies concerns with transportation. DME:walker- don't use; built in shower chair and grab bars in home HHC/SNF: Denies hx of Pt states no concerns with going home at time of dc. Pt is agreeable to outpt therapy, she would like to go to [facility] as she has done before. Pt denies need for RN CM to set this up, she prefers to do on own. Pt states no further concerns/needs. CM to follow. Advised pt to ask CM if any further question/concerns/needs arise, voices understanding. Pt Goal: Home with outpt therapy Plan: Home with outpt therapy Carrington LIMON CM
--- NOTE | 2024-09-14 12:00 | CASEMGMT ---
BRAXTON JIMENEZ updated by therapy that patient would like outpatient therpay at discharge. BRAXTON JIMENEZ in to discussed outpatient therapy with patient. Patient states she would like outpatient therapy at [facility] and would like to take script and schedule on her own. Patient denied further needs or concerns at discharge and had no further questions. BRAXTON JIMENEZ updated hospitalist and obtained script for outpatient therapy and placed in discharge packet. BRAXTON JIMENEZ updated patient that script was placed in discharge packet, patient voiced appreciation.
[2024-09-14 15:08] VITALS: BP 113/79; PULSE 91; RESP 16; TEMP 36.3; O2SAT 98
== END 2024-09-14 15:06 | disposition home or self-care (01) | DRG 683 ==
PROVIDERS: Admitting Provider Family Medicine; PCP Internal Medicine; Visit Provider Internal Medicine
DX: N17.9 Acute kidney failure, unspecified (principal); I48.0 Paroxysmal atrial fibrillation; I42.0 Dilated cardiomyopathy; E11.9 Type 2 diabetes mellitus without complications; N30.00 Acute cystitis without hematuria; I10 Essential (primary) hypertension; E78.2 Mixed hyperlipidemia; K21.9 Gastro-esophageal reflux disease without esophagitis; Z79.01 Long term (current) use of anticoagulants; Z87.891 Personal history of nicotine dependence; Z23 Encounter for immunization; Z85.3 Personal history of malignant neoplasm of breast; Z79.899 Other long term (current) drug therapy; Z95.810 Presence of automatic (implantable) cardiac defibrillator
CPT/HCPCS: 36415; 80048; 80053; 82150; 83690; 85025; 85652; 90662; 96361; 96365; 96366; 96375; 97161; 99221; G0378; G0379; J2405

== ENCOUNTER → 2024-11-15 | Outpatient (CLI) | payer MEDICARE, SELFPAY ==
[2024-11-15 12:36] LABS: Erythrocyte Sedimentation Rate 6 mm/hr (0-30)
[2024-11-15 12:37] LABS: Absolute Lymphocyte Count 2.37 X10^3/uL (0.83-4.51); Absolute Neutrophil Count 4.5 X10^3/uL (2.0-7.7); Basophil# 0.04 X10^3/uL; Basophil% 0.5 % (0-1); Eosinophil# 0.11 X10^3/uL; Eosinophils% 1.4 % (0-5); Hematocrit 40.4 % (37-47); Hemoglobin 13.4 g/dL (12.0-15.0); Lymphocyte # 2.37 X10^3/ul (0.83-4.51); Lymphocyte % 30.7 % (19-41); Mean Corp Hgb Conc 33.2 g/dL (32-36); Mean Corpuscular Hgb 29.8 pg (27.0-32.0); Mean Corpuscular Volume 89.8 fL (81-99); Mean Platelet Vol. 9.9 fl (6.2-12.0); Monocyte# 0.65 X10^3/uL; Monocyte% 8.4 % (0-10); NRBC Flagged by Analyzer 0 % (0-5); Neutrophil # 4.51 X10^3/uL (2.7-7.7); Neutrophil % 58.6 % (47-70); Platelet Count 272 K/mm3 (150-450); RBC Distribution Width CV 13.7 % (11.6-14.6); White Blood Count 7.7 K/mm3 (4.4-11.0)
[2024-11-15 12:45] LABS: AST(SGOT) 17 U/L (15-37); Alanine Aminotransfer ALT/SGPT 17 U/L (13-56); Albumin, Serum 3.5 g/dL (3.2-5.0); Alkaline Phosphatase 91 U/L (45-117); Anion Gap 3 (5-15); BUN 16 mg/dL (7-18); BUN/Creat Ratio 17.9 RATIO (10-20); CRP < 2.90 mg/L (0.0-3.0); Calcium,Total 8.7 mg/dL (8.5-10.1); Chloride 108 mmol/L (98-107); Creatinine, Serum 0.89 mg/dL (0.55-1.02); EST Glomerular Filtration Rate 64 mL/min (>60); Est Glom Filt Rate - Afr Amer 78 mL/min (>60); Globulin 3.5 g/dL (2.2-4.2); Glucose 112 mg/dL (74-106); Potassium 3.1 mmol/L (3.5-5.1); Sodium Level 142 mmol/L (136-145)
[2024-11-16 05:06] LABS: Prealbumin 18 mg/dL (9-32)
== END | disposition home or self-care (01) ==
LOC: LABSPEC 12:10
PROVIDERS: PCP Internal Medicine; Referring Provider Internal Medicine; Visit Provider Internal Medicine
DX: R51.9 Headache, unspecified (principal); E11.69 Type 2 diabetes mellitus with other specified complication; R63.4 Abnormal weight loss
CPT/HCPCS: 80053; 84134; 85025; 85652; 86140

== ENCOUNTER → 2024-11-16 | Outpatient (CLI) | payer MEDICARE, SELFPAY ==
--- NOTE | 2024-11-16 09:22 | CT_ITS ---
STUDY: CT BRAIN WITHOUT CONTRAST REASON FOR EXAM: Female, 84 years old. Headache, acute -- STAT RADIATION DOSAGE (If Supplied By Facility): CTDIvol = ( 44.99 ) mGy, DLP = ( 779.24 ) mGycm TECHNIQUE: Transaxial CT imaging of the brain was performed without administration of intravenous contrast material. Individualized dose optimization techniques were used for this CT. COMPARISON: Comparison is made with prior study April 14, 2024. FINDINGS: Normal soft tissue structures. Normal calvarium. There is moderate cerebral atrophy with widening of the extra-axial spaces and ventricular dilatation. There are areas of decreased attenuation within the white matter tracts of the supratentorial brain, consistent with microvascular disease changes. Normal basal ganglia and thalami. Normal brainstem. There is mild cerebellar atrophy. There is no intracranial hemorrhage. There are no findings of an acute ischemic infarction. Normal visualized paranasal sinuses. CT/Brain/Head without Contrast IMPRESSION: Chronic involutional changes of the brain. Electronically Signed: Jonny Martínez MD at 10:39 EST ,
== END | disposition home or self-care (01) ==
LOC: CT 09:19
PROVIDERS: PCP Internal Medicine; Referring Provider Internal Medicine; Visit Provider Internal Medicine
DX: R51.9 Headache, unspecified (principal)
CPT/HCPCS: 70450

== ENCOUNTER → 2025-01-09 | Outpatient (CLI) | payer MEDICARE, SELFPAY ==
--- NOTE | 2025-01-09 12:09 | BI_ITS ---
PROCEDURE: SCRN MAMM (CAD)W/YUKI BILAT REASON FOR EXAM: F, Age 84 y/o, presents for annual screening mammogram. Personal history of breast cancer in 2003, status post lumpectomy and axillary dissection. TECHNIQUE: Bilateral screening digital breast tomosynthesis with 2D and 3D images. Computer aided detection. COMPARISON: 12/21/2023 FINDINGS: There are scattered areas of fibroglandular density. There is a cardiac conduction device overlying the left axilla and superior breast, which obscures the underlying tissues. Otherwise, no suspicious masses, areas of developing architectural distortion, or suspicious calcifications in the visualized breast tissues bilaterally. BI/SCRN MAMM (CAD)W/YUKI BILAT IMPRESSION: There is no mammographic evidence of malignancy in either breast. BI-RADS 1: NEGATIVE. RECOMMEND ANNUAL MAMMOGRAPHIC SCREENING. Follow-up code: Routine Follow-up The patient will be notified of the results by letter. Reading Location: [id number]
== END | disposition home or self-care (01) ==
PROVIDERS: PCP Internal Medicine; Referring Provider Nurse Practitioner Family; Visit Provider Nurse Practitioner Family
DX: Z12.31 Encounter for screening mammogram for malignant neoplasm of breast (principal); Z80.3 Family history of malignant neoplasm of breast; Z85.3 Personal history of malignant neoplasm of breast
CPT/HCPCS: 77063; 77067

== ENCOUNTER → 2025-02-08 | Outpatient (CLI) | payer MEDICARE, SELFPAY ==
--- NOTE | 2025-02-08 12:49 | VDLE_ITS ---
Reason For Study Reason For Study: Edema RIGHT LEFT GSV is normal. GSV is normal. CFV is compressible, spontaneous, phasic, competent CFV is compressible, spontaneous, phasic, competent, and demonstrates normal augmentation. and demonstrates normal augmentation. FV is compressible, spontaneous, phasic, competent FV is compressible, spontaneous, phasic, competent and demonstrates normal augmentation. and demonstrates normal augmentation. POP V is compressible, spontaneous, phasic, competent POP V is compressible, spontaneous, phasic, competent and demonstrates normal augmentation. and demonstrates normal augmentation. T/P Trunk is compressible. T/P Trunk is compressible. PTV is compressible. PTV is compressible. RT PerV is compressible. LT PerV is compressible. Procedure This is a venous duplex using B-mode, color flow and spectral Doppler. Exam performed in department. VL/Venous Duplex US - Mike Extrem Interpretation Summary Deep veins of the bilateral lower extremities are patent and compressible segme ntally. There is no evidence of bilateral lower extremity deep vein thrombosis. The bilateral great saphenous veins appea r patent and compressible segmentally. Ordering Physician: Jame Asher Referring Physician: Jame Asher Performed By: Philippe Flores RVT and Student
== END | disposition home or self-care (01) ==
LOC: CVS 12:47
PROVIDERS: PCP Internal Medicine; Referring Provider Psychiatry & Neurology Neurology; Visit Provider Psychiatry & Neurology Neurology
DX: I87.2 Venous insufficiency (chronic) (peripheral) (principal)
CPT/HCPCS: 93970

== ENCOUNTER → 2025-05-30 | Outpatient (CLI) | payer MEDICARE, SELFPAY ==
--- NOTE | 2025-05-30 10:57 | BD_ITS ---
PROCEDURE: DEXA BONE DENSITY STUDY 05/30/2025 REASON FOR EXAM: ASSESS RESPONSE TO BISPHOSPHONATE THERAPY F, age 85 y/o . TECHNIQUE: DEXA BONE DENSITY STUDY COMPARISON: DEXA scan on 05/19/2023 FINDINGS: BMD and T-SCORES Lumbar spine: 0.905 g/cm2, T-score -1.0 Levels: L1 through L3 Change from prior: No significant change in BMD.. Left femoral neck: 0.595 g/cm2, T-score -2.3 Femoral neck comparison data not recommended for monitoring change. Prior T-score -2.2 Left total hip: 0.835 g/cm2, T-score -0.9 Change from prior: Statistically significant BMD increase of 5.1%. Right femoral neck: 0.6-1 g/cm2, T-score -2.1 Femoral neck comparison data not recommended for monitoring change. Prior T-score -2.7 Right total hip: 0.809 g/cm2, T-score -1.1 Change from prior: Statistically significant BMD increase of 5.6%. The World Health Organization has defined the following categories based on bone density: Normal bone density: T-score equal to or greater than -1.0 Osteopenia: T-score between -1.0 and -2.5 Osteoporosis: T-score equal to or less than -2.5 FRAX (or Comparable) Fracture Risk Assessment: 10 Year Probability of Fracture: Major Osteoporotic Fracture: 30% Hip Fracture: 20% (Note: FRAX is not to be reported in setting of normal range bone density, osteoporosis on DEXA, known history of osteoporosis, prior osteoporotic hip or vertebral fracture, or for any patient undergoing pharmacological treatment for bone loss.) The National Osteoporosis Foundation (NOF) recommends pharmacological treatment for patients with a FRAX 10-year risk of 3% or higher for a hip fracture, or 20% or higher for a major osteoporotic fracture, to prevent osteoporosis and reduce fracture risk. The patient does meet the pharmacological treatment recommendations for prevention of osteoporosis. BD/Dexa Bone Density Study IMPRESSION: OSTEOPENIA. Reading Location: [id number]
== END | disposition home or self-care (01) ==
LOC: OPBD 10:50
PROVIDERS: PCP Internal Medicine; Referring Provider Nurse Practitioner Family; Visit Provider Nurse Practitioner Family
DX: Z78.0 Asymptomatic menopausal state (principal); M81.0 Age-related osteoporosis without current pathological fracture
CPT/HCPCS: 77080

== ENCOUNTER → 2025-08-09 | Outpatient (CLI) | payer MEDICARE, SELFPAY ==
--- NOTE | 2025-08-09 10:50 | MRI_ITS ---
PROCEDURE: BRAIN W/WO CONTRAST 08/09/2025 REASON FOR EXAM: MEMORY LOSS TECHNIQUE: Procedure Code: [id number] Modality: MR Procedure: BRAIN W/WO CONTRAST Multiplanar and multisequence images were obtained. CONTRAST: VOLUME: mL FINDINGS: Scattered small FLAIR hyperintense foci throughout the bilateral cerebral and pontine white matter, nonspecific. No corresponding enhancement. Moderate generalized atrophy. Otherwise the brain parenchyma appears unremarkable. The thomas-white matter differentiation is appropriate. The ventricles are normal in size and configuration. No midline shift. The midline structures are intact, specifically the corpus callosum, septum pellucidum, pituitary gland, and cerebellar vermis. The cervicomedullary junction appears unremarkable. The paranasal sinuses and mastoid air cells are clear. Diffusion-weighted images demonstrate no restricted diffusion. No abnormal enhancement pattern. MRI/Brain W/WO Contrast IMPRESSION: 1. Nonspecific, nonenhancing FLAIR hyperintense foci throughout the bilateral cerebral and pontine white matter, probably representing mild chronic microvascular ischemic changes. 2. Moderate generalized atrophy. Reading Location: [id number]
[2025-08-09 11:33] VITALS: BP 134/67; PULSE 84; RESP 18; O2SAT 92
[2025-08-09 11:45] VITALS: BP 116/71; PULSE 84; RESP 16; O2SAT 92
[2025-08-09 12:00] VITALS: BP 121/61; PULSE 84; RESP 18; O2SAT 93
[2025-08-09 12:15] VITALS: BP 113/64; PULSE 85; RESP 16; O2SAT 93
[2025-08-09 12:25] VITALS: BP 122/61; PULSE 83; RESP 16; O2SAT 92
== END | disposition home or self-care (01) ==
LOC: MRI 10:44
PROVIDERS: PCP Internal Medicine; Referring Provider Internal Medicine; Visit Provider Internal Medicine
DX: R41.3 Other amnesia (principal)
CPT/HCPCS: 70553; A9575; A4216

== ENCOUNTER → 2025-08-14 | Outpatient (CLI) | payer MEDICARE, SELFPAY ==
[2025-08-14 17:40] LABS: Hematocrit 41.8 % (37-47); Hemoglobin 13.7 g/dL (12.0-15.0); Immature Granulocytes Count 0.040 X10^3/uL (0.0-0.0); Mean Corp Hgb Conc 32.8 g/dL (32-36); Mean Corpuscular Volume 90.3 fL (81-99); Mean Platelet Vol. 9.8 fl (6.2-12.0); NRBC Flagged by Analyzer 0 % (0-5); Platelet Count 204 K/mm3 (150-450); RBC Distribution Width CV 13.0 % (11.6-14.6); RBC Distribution Width SD 42.4 fl (35.1-43.9); Red Blood Count 4.63 M/mm3 (4.2-5.4); White Blood Count 10.2 K/mm3 (4.4-11.0)
[2025-08-14 18:26] LABS: AST(SGOT) 18 U/L (<=31); Alanine Aminotransfer ALT/SGPT 15 U/L (<=34); Albumin, Serum 4.4 g/dL (3.4-4.8); Alkaline Phosphatase 101 U/L (35-104); Anion Gap 14 (5-15); BUN 24 mg/dL (4-19); BUN/Creat Ratio 19.2 RATIO (10-20); Calcium,Total 9.5 mg/dL (7.6-11.0); Carbon Dioxide 20.6 mmol/L (21.0-32.0); Chloride 107 mmol/L (98-108); Globulin 3.0 g/dL (2.2-4.2); Glucose 106 mg/dL (70-99); Potassium 4.1 mmol/L (3.3-5.1); Vitamin B12 420 pg/mL (180-914); Vitamin D,25 Hydroxy 77.4 ng/mL (30-100)
== END | disposition home or self-care (01) ==
LOC: MTLAB 15:56
PROVIDERS: PCP Internal Medicine; Referring Provider Internal Medicine; Visit Provider Internal Medicine
DX: E53.8 Deficiency of other specified B group vitamins (principal); I10 Essential (primary) hypertension; E55.9 Vitamin D deficiency, unspecified; K90.89 Other intestinal malabsorption
CPT/HCPCS: 36415; 80053; 82306; 82607; 85025

== ENCOUNTER 2025-08-29 11:15 | Outpatient (CLI) | payer MEDICARE, SELFPAY ==
--- OUTSIDE RECORDS SUMMARY | 2025-06-26 13:26 | XMS RPT_ITS ---
Author Name Auto Generated Organization [facility] Care Team Providers Care Traditional Chinese Herbalist Name Role Phone SAMANTHA VAUGHAN, DR MILLAN Attending Unavailable SAMANTHA VAUGHAN, DR MILLAN Primary Care Unavailable SAMANTHA VAUGHAN, DR MILLAN Primary Care Unavailable LINDSAY NIXON MD Attending Unavailable SAMANTHA VAUGHAN, DR MILLAN Primary Care Unavailable CLARI MORTENSEN Attending Unavailab allison SINGH MD, DR MILLAN Attending Unavailable SAMANTHA VAUGHAN, DR MILLAN Primary Care Unavailable SAMANTHA VAUGHAN, DR MILLAN Primary Care Unavailable GRABIEL VAUGHAN, BARBARA Attending U navailable PROBLEMS No Problem Records Found PROCEDURES No Procedure Records Found RESULTS CUR Observed: 01/25/2025 11:15 AM Status: F Source: [facility] . MICRO - Microbiology PROCEDURE: Urine Culture [*1] SOURCE: Urine, Clean Catch BODY SITE: COLLECTED DATE/TIME: 01/25/2025 11:15 EST RECEIVED DATE/TIME: 01/25/2025 16:19 EST START DATE/TIME: 01/25/2025 16:19 EST FREE TEXT SOURCE: FINAL REPORTS Final Report [] Verified Date/Time/Personnel: 01/26/2025 08:19 EST 10,000 - 50,000 cfu/ml Multiple bacterial morphotypes present. Probable Contamination. Suggest recollection if clinically indicated. Performing Locations *1: This test was performed at: [facility], [address] [place] [address], [address] , UA Collected: 01/25/2025 11:15 AM Status: F Source: [facility] TYPE CODE TESTS RESULT OUT OF RANGE REFERENCE UNITS LAB SPCUA(LOINC) UA Specimen Type Clean Catch LAB CLRUA(LOINC) UA Color Yellow LAB APPUA(LOINC) UA Appear Clear Clear LAB SGUA(LOINC) UA Spec Grav 1.015 1.015-1.025 LAB GLUA(LOINC) UA Glucose Negative Negative mg/dL LAB BILUA(LOINC) UA Bili Negative Negative LAB KETUA(LOINC) UA Ketones Negative Negative mg/dL LAB BLDUA(LOINC) UA Blood Negative Negative LAB PHUA(LOINC) UA pH 5.0 5.0 - 8.0 LAB PROUA(LOINC) UA Protein Negative Negative mg/dL LAB UROUA(LOINC) UA Urobilinogen 0.2 0.2-1.0 E.U ./dL LAB NITUA(LOINC) UA Nitrite Negative Negative LAB LEUUA(LOINC) UA Leuk Est Negative Negative Performed By: #### UA #### [address] [address] BMP Collected: 11/21/2024 3:08 PM Status: F Source: [facility] TYPE CODE TESTS RESULT OUT OF RANGE REFERENCE UNITS LAB GLU(LOINC) Glucose Level 103 83-110 mg/dL LAB NA(LOINC) Sodium Level 144 136-145 mmol/L LAB K(LOINC) Potassium Level 3.8 3.5-5.1 mmol/L LAB CL(LOINC) Chloride 108 High 98-107 mmol/L LAB CO2(LOINC) CO2 27 23-31 mmol/L LAB EBAL(LOINC) Electrolyte Balance 9.0 4.0-15.0 mEq/L LAB BUN(LOINC) BUN 24 High 7-18 mg/dL LAB CRE(LOINC) Creatinine Lvl (s) 0.99 0.55-1.02 mg/dL Result Comment: Testing perf ormed on [employer] Dimension EXL analyzer using a modified kinetic Reece technique. LAB BC([facility]) BUN/Creatinine Ratio 24 7-27 ratio LAB CA([facility]) Calcium Lvl 9.1 8.4-10.2 mg/dL Performed By: #### GFR, RUTH #### [address] [place], [place] [address] .GFR Collected: 4 3:08 PM Status: F Source: [facility] TYPE CODE TESTS RESULT OUT OF RANGE REFERENCE UNITS LAB GFRAA([facility]) GFR 65 ml/min/1. 73sqm Result Comment: GFR Population mean for , [...] Less than 15 mL/min/1.73 square meters LAB GFRNO([facility]) GFR Non- 54 ml/min/1. 73sqm Result Comment: GFR Population mean for , [...] 15 mL/min/1.73 square meters Performed By: #### GFR, RUTH #### [address] [place], [place] [address] CBC Collected: 4 1:48 PM Status: F Source: [facility] TYPE CODE TESTS RESULT OUT OF RANGE REFERENCE UNITS LAB WBC(LOINC) WBC 9.6 4.5-10.8 10 3/mcL LAB RBCCT(LOINC) RBC 4.43 4.10-5.30 10 6/mcL LAB HGB(LOINC) Hgb 13.5 12.0-16.0 G/dL LAB HCT(LOINC) Hct 40.1 34.0-46.0 % LAB MCV(LOINC) MCV 90.6 80.0-99.0 fL LAB MCH(LOINC) MCH 30.5 27.0-33.0 pg LAB MCHC(LOINC) MCHC 33.6 32.0-36.0 G/dL LAB RDW(LOINC) RDW 14.1 11.5-15.5 % LAB PLT(LOINC) Platelet 208 150-450 10 3/mcL LAB MPV(LOINC) MPV 8.3 6.6-10.5 fL Performed By: #### GFR, PBNP , ADIFF, CBC, ANEU, BMP #### [address] [address] .AUTO DIFF Collected: 09/28/2024 1:48 PM Status: F Source: [facility] TYPE CODE TESTS RESULT OUT OF RANGE REFERENCE UNITS LAB JUAN MANUEL(LOINC) Neutrophil % 69.0 50.0-75.0 % LAB LYM(LOINC) Lymphocyte % 23.6 20.0-40.0 % LAB MON(LOINC) Monocyte % 6.5 2.0-13.0 % LAB EO(LOINC) Eosinophil % 0.4 0.0-7.0 % LAB BAS(LOINC) Basophil % 0.5 0.0-2.5 % LAB ABLYM(LOINC) Lymphocyte, Absolute 2.3 0.9-4.3 10 3/mcL LAB RAJESH(LOINC) Monocyte, Absolute 0.6 0.1-1.4 10 3/mcL LAB AEOS(LOINC) Eosinophil, Absolute 0.0 0.0-0.7 10 3/mcL LAB ABAS(LOINC) Basophil, Absolute 0.0 0.0-0.2 10 3/mcL Performed By: #### GFR, PBNP , ADIFF, CBC, ANEU, BMP #### [address] [place], [place] [address] .NEUABS Collected: 1:48 PM Status: F Source: [facility] TYPE CODE TESTS RESULT OUT OF RANGE REFERENCE UNITS LAB ANEU(LOINC) Neutrophil, Absolute 6.6 2.3-8.1 10 3/mcL Performed By: #### GFR, PBNP , ADIFF, CBC, ANEU, BMP #### [address] [place], [place] [address] PBNP Collected: 09/28/2024 1:48 PM Status: F Source: [facility] TYPE CODE TESTS RESULT OUT OF RANGE REFERENCE UNITS LAB PBNP(LOINC) N-Terminal proBNP 229 0-450 pg/mL Result Comment: NT-proBNP re sults of less than 300 pg/mL effectively rules out acute congestive heart failure with 99% negative predictive value. Performed By: #### GFR, PBNP , ADIFF, CBC, ANEU, BMP #### [address] [place], [place] [address] BMP Collected: 09/28/2024 1:48 PM Status: F Source: [facility] TYPE CODE TESTS RESULT OUT OF RANGE REFERENCE UNITS LAB GLU(LOINC) Glucose Level 84 83-110 mg/dL LAB NA(LOINC) Sodium Level 141 136-145 mmol/L LAB K(LOINC) Potassium Level 3.7 3.5-5.1 mmol/L LAB CL(LOINC) Chloride 102 98-107 mmol/L LAB CO2(LOINC) CO2 25 23-31 mmol/L LAB EBAL(LOINC) Electrolyte Balance 14.0 4.0-15.0 mEq/L LAB BUN(LOINC) BUN 25 High 7-18 mg/dL LAB CRE(LOINC) Creatinine Lvl (s) 1.59 High 0.55-1.02 mg/dL Result Comment: Testing perf ormed on Siemens Dimension EXL analyzer using a modified kinetic Reece technique. LAB BC(LOINC) BUN/Creatinine Ratio 16 7-27 ratio LAB CA(LOINC) Calcium Lvl 8.6 8.4-10.2 mg/dL Performed By: #### GFR, PBNP , ADIFF, CBC, ANEU, BMP #### [address] [place], [place] [address] .GFR Collected: 1:48 PM Status: F Source: [facility] TYPE CODE TESTS RESULT OUT OF RANGE REFERENCE UNITS LAB GFRAA(LOINC) GFR 38 ml/min/1. 73sqm Result Comment: GFR Population mean for , [...] than 15 mL/min/1.73 square meters LAB GFRNO(LOINC) GFR Non- 31 ml/min/1. 73sqm Result Comment: GFR Population mean for , [...] 15 mL/min/1.73 square meters Performed By: #### GFR, PBNP , ADIFF, CBC, ANEU, BMP #### [address] [address] CBL Observed: 09/12/2024 10:48 PM Status: F Source: [facility] . MICRO - Microbiology PROCEDURE: Blood Culture (bacterial) [*1] SOURCE: Blood BODY SITE: COLLECTED DATE/TIME: 09/12/2024 22:48 EDT RECEIVED DATE/TIME: 09/13/2024 15:20 EDT START DATE/TIME: 09/13/2024 15:20 EDT FREE TEXT SOURCE: FINAL REPORTS Final Report [] Verified Date/Time/Personnel: 09/18/2024 15:59 EDT Blood Culture: No Growth at 5 days. PRELIMINARY REPORTS Preliminary Report [] Verified Date/Time/Personnel: 09/13/2024 15:59 EDT Culture has been received in lab and is no growth to date. Routine cultures are held for 5 days. Performing Locations *1: This test was performed at: [address], [address] , [place] CBL Observed: 09/12/2024 10:48 PM Status: F Source: [facility] . MICRO - Microbiology PROCEDURE: Blood Culture (bacterial) [*1] SOURCE: Blood BODY SITE: COLLECTED DATE/TIME: 09/12/2024 22:48 EDT RECEIVED DATE/TIME: 09/13/2024 15:20 EDT START DATE/TIME: 09/13/2024 15:20 EDT FREE TEXT SOURCE: FINAL REPORTS Final Report [] Verified Date/Time/Personnel: 09/18/2024 15:59 EDT Blood Culture: No Growth at 5 days. PRELIMINARY REPORTS Preliminary Report [] Verified Date/Time/Personnel: 09/13/2024 15:59 EDT Culture has been received in lab and is no growth to date. Routine cultures are held for 5 days. Performing Locations *1: This test was performed at: [address], [address] , [place] CT ABDOMEN/PELVIS W/O CONTRAST Observed: 09/12/2024 10:27 PM Status: F Source: [facility] ORIGINAL EXAMINATION: CT OF THE ABDOMEN AND PELVIS WITHOUT CONTRAST 09/12/2024 10:28 pm TECHNIQUE: CT of the abdomen and pelvis was performed without the administration of intravenous contrast. Multiplanar reformatted images are provided for review. Automated exposure control, iterative reconstruction, and/or weight based adjustment of the mA/kV was utilized to reduce the radiation dose to as low as reasonably achievable. COMPARISON: CT abdomen pelvis 10/22/2018 HISTORY: ORDERING SYSTEM PROVIDED HISTORY: Reason for Exam: pain FINDINGS: The heart is normal in size. No pericardial thickening or effusion. Partially visualized pacer leads. Scarring is noted within the lung bases. No acute abnormality within the visualized lower lungs. The aorta is nonaneurysmal with moderate atherosclerosis. No adenopathy within the abdomen or pelvis. The liver is unremarkable. Prior cholecystectomy. The spleen, pancreas, and bilateral adrenal glands are unremarkable. Calcifications are appreciated along the medial wall of the duodenum which do not appear within the lumen of the common bile duct. These may be vascular in origin. The kidneys are roughly symmetric in size. No hydronephrosis or renal calculi. Interval increase in size of a previously simple appearing cyst at the right midpole measuring up to 1.4 cm (series 2, image 40) with average Hounsfield units of 33 from prior 8 mm. No ureteral calculus. The bladder is decompressed limiting evaluation but appears grossly unremarkable. Prior hysterectomy. No pneumoperitoneum or free fluid. The large and small bowel are normal in caliber. Mild colonic diverticulosis without evidence of diverticulitis. The appendix is unremarkable. No inflammatory changes of the GI tract. No acute osseous abnormality. Stable grade 1 anterolisthesis of L4 on L5. Degenerative changes of the spine. IMPRESSION: No acute abnormality within the abdomen or pelvis. Indeterminate right midpole renal lesion, previously simple appearing cyst however increased in size from prior. Recommend further nonemergent evaluation with ultrasound, or multiphasic renal MRI/CT. REPORT CORRECTION I have personally reviewed the images of this examination and edited the preliminary report. Interpreted by: Vamsi Potter Preliminary Report By: Cr Belcher Electronically signed By Vamsi Potter Dictated Date: 09/12/2024 10:37:16 PM Prelim Date: 09/12/2024 10:49:19 PM Sign Date: 09/12/2024 11:44:32 PM Ordering Provider: LINDSAY PAREDES Observed: 09/12/2024 9:57 PM Status: F Source: [facility] . MICRO - Microbiology PROCEDURE: Urine Culture [O1 *1] SOURCE: Urine BODY SITE: COLLECTED DATE/TIME: 09/12/2024 21:57 EDT RECEIVED DATE/TIME: 09/13/2024 15:38 EDT START DATE/TIME: 09/13/2024 15:39 EDT FREE TEXT SOURCE: FINAL REPORTS Final Report [] Verified Date/Time/Personnel: 09/14/2024 15:22 EDT >100,000 cfu/ml Multiple bacterial morphotypes present. Probable Contamination. Suggest recollection if clinically indicated. Order Comments O1: Urine Culture Added by Discern Performing Locations *1: This test was performed at: [facility], [address] [place] [address], [facility] , [place]A Collected: 09/12/2024 9:57 PM Status: F Source: [facility] TYPE CODE TESTS RESULT OUT OF RANGE REFERENCE UNITS LAB SPCUA(LOINC) UA Specimen Type Clean Catch LAB CLRUA(LOINC) UA Color Yellow LAB APPUA(LOINC) UA Appear Slightly Cloudy Abnormal Clear LAB SGUA(LOINC) UA Spec Grav 1.025 1.015-1.025 LAB GLUA(LOINC) UA Glucose Negative Negative mg/dL LAB BILUA(LOINC) UA Bili Small Abnormal Negative LAB KETUA(LOINC) UA Ketones Negative Negative mg/dL LAB BLDUA(LOINC) UA Blood Moderate Abnormal Negative LAB PHUA(LOINC) UA pH 5.5 5.0 - 8.0 LAB PROUA(LOINC) UA Protein 30 Negative mg/dL LAB UROUA(LOINC) UA Urobilinogen 0.2 0.2-1.0 E.U ./dL LAB NITUA(LOINC) UA Nitrite Negative Negative LAB LEUUA(LOINC) UA Leuk Est Moderate Abnormal Negative Performed By: #### UA, UAMIC AO #### [address] [address] .URINALYSIS MICROSCOPIC (AO) Collected: 09/12/2024 9: 57 PM Status: F Source: [facility] TYPE CODE TESTS RESULT OUT OF RANGE REFERENCE UNITS LAB WBCUA(LOINC) UA WBC LOADED Abnormal None Seen /hpf LAB RBCUA(LOINC) UA RBC 5-10 Abnormal None Seen /hpf LAB EPIUA(LOINC) UA Squam Epithelial 5-10 Abnormal None Seen /hpf LAB BACUA(LOINC) UA Bacteria 2+ Abnormal /hpf Performed By: #### UA, UAMIC AO #### [address] [address] CBC Collected: 9:26 PM Status: F Source: [facility] TYPE CODE TESTS RESULT OUT OF RANGE REFERENCE UNITS LAB WBC(LOINC) WBC 7.9 4.5-10.8 10 3/mcL LAB RBCCT(LOINC) RBC 4.49 4.10-5.30 10 6/mcL LAB HGB(LOINC) Hgb 13.8 12.0-16.0 G/dL LAB HCT(LOINC) Hct 40.4 34.0-46.0 % LAB MCV(LOINC) MCV 90.0 80.0-99.0 fL LAB MCH(LOINC) MCH 30.8 27.0-33.0 pg LAB MCHC(LOINC) MCHC 34.2 32.0-36.0 G/dL LAB RDW(LOINC) RDW 14.6 11.5-15.5 % LAB PLT(LOINC) Platelet 154 150-450 10 3/mcL LAB MPV(LOINC) MPV 8.6 6.6-10.5 fL Performed By: #### GFR, ADIF F, CBC, ANEU, CMP, MDW #### [address] [address] .AUTO DIFF Collected: 09/12/2024 9:26 PM Status: F Source: [facility] TYPE CODE TESTS RESULT OUT OF RANGE REFERENCE UNITS LAB JUAN MANUEL(LOINC) Neutrophil % 55.1 50.0-75.0 % LAB LYM(LOINC) Lymphocyte % 33.1 20.0-40.0 % LAB MON(LOINC) Monocyte % 10.0 2.0-13.0 % LAB EO(LOINC) Eosinophil % 1.1 0.0-7.0 % LAB BAS(LOINC) Basophil % 0.7 0.0-2.5 % LAB ABLYM(LOINC) Lymphocyte, Absolute 2.6 0.9-4.3 10 3/mcL LAB RAJESH(LOINC) Monocyte, Absolute 0.8 0.1-1.4 10 3/mcL LAB AEOS(LOINC) Eosinophil, Absolute 0.1 0.0-0.7 10 3/mcL LAB ABAS(LOINC) Basophil, Absolute 0.1 0.0-0.2 10 3/mcL Performed By: #### GFR, ADIF F, CBC, ANEU, CMP, MDW #### [address] [address] .NEUABS Collected: 9:26 PM Status: F Source: [facility] TYPE CODE TESTS RESULT OUT OF RANGE REFERENCE UNITS LAB ANEU(LOINC) Neutrophil, Absolute 4.3 2.3-8.1 10 3/mcL Performed By: #### GFR, ADIF F, CBC, ANEU, CMP, MDW #### [address] [address] .MDW Collected: 09/12/2024 9:26 PM Status: F Source: [facility] TYPE CODE TESTS RESULT OUT OF RANGE REFERENCE UNITS LAB MDW([facility]) Monocyte Distribution Width 21.29 High 0.00-20.00 Result Comment: For adults i n ED, MDW>20.0 may be associated with a higher risk of sepsis during the first 12hrs of hospital admission Performed By: #### GFR, ADIF F, CBC, ANEU, CMP, MDW #### [address] [address] CMP Collected: 09/12/2024 9:26 PM Status: F Source: [facility] TYPE CODE TESTS RESULT OUT OF RANGE REFERENCE UNITS LAB GLU(LOINC) Glucose Level 140 High 83-110 mg/dL LAB NA(LOINC) Sodium Level 140 136-145 mmol/L LAB K(LOINC) Potassium Level 3.3 Low 3.5-5.1 mmol/L LAB CL(LOINC) Chloride 106 98-107 mmol/L LAB CO2(LOINC) CO2 19 Low 23-31 mmol/L LAB EBAL(LOINC) Electrolyte Balance 15.0 4.0-15.0 mEq/L LAB BUN(LOINC) BUN 65 High 7-18 mg/dL LAB CRE(LOINC) Creatinine Lvl (s) 3.36 High 0.55-1.02 mg/dL Result Comment: Testing perf ormed on Siemens Dimension EXL analyzer using a modified kinetic Reece technique. LAB BC(LOINC) BUN/Creatinine Ratio 19 7-27 ratio LAB CA(LOINC) Calcium Lvl 8.5 8.4-10.2 mg/dL LAB PROT(LOINC) Total Protein 6.3 Low 6.4-8.2 G/dL LAB ALB(LOINC) Albumin Level 3.8 3.4-4.8 G/dL LAB GLB(LOINC) Globulin 2.5 G/dL LAB AG(LOINC) A/G Ratio 1.5 1.1-2.5 ratio LAB BILT(LOINC) Bili Total 0.5 0.2-1.0 mg/dL Result Comment: Use of this assay is not recommended for patients undergoing treatment with eltrombopag due to the potential for falsely elevated results. LAB AP(LOINC) Alk Phos 110 40-135 U/L LAB AST(LOINC) AST/SGOT 12 10-40 U/L LAB ALT(LOINC) ALT/SGPT 23 14-59 U/L Performed By: #### GFR, ADIF F, CBC, ANEU, CMP, MDW #### [address] [address] .GFR Collected: 4 9:26 PM Status: F Source: [facility] TYPE CODE TESTS RESULT OUT OF RANGE REFERENCE UNITS LAB GFRAA(LOINC) GFR 16 ml/min/1. 73sqm Result Comment: GFR Population mean for , [...] than 15 mL/min/1.73 square meters LAB GFRNO(LOINC) GFR Non- 13 ml/min/1. 73sqm Result Comment: GFR Population mean for , [...] 15 mL/min/1.73 square meters Performed By: #### GFR, ADIF F, CBC, ANEU, CMP, MDW #### [address] [address] ALLERGIES No Allergies Records Found ENCOUNTERS ADMIT/DISCHARGE ACCOUNT NUMBER ADMITTING ENCOUNTER CLASS LOC ATION SOURCE 06/26/2025 [id number] [facility] 01/25/2025/ 5 [id number] [facility] 11/21/2024/ 4 [id number] [facility] 09/28/2024/ 4 [id number] [facility] 09/12/2024/ 4 [id number] [facility] ENCOUNTER [employer]AR[employer]OR PAYER SUBSCRIBER SOURCE 06/26/2025 SIMRAN CASEY: [id number] [place] [address]Wwr: () Primary Insurance:[facility] Number: [id number] e Date:[id number] Name:LOLY MCGILL [id number] PASOLINDA [address]AU: SIMRAN CASEY: [id number] [place] [address]Swr: (HP) (WP) [facility] 01/25/2025 SIMRAN MARTINEZOB: [place] [address]Wnh: (HP) Primary Insurance:AETNA INSCOPolicy Number: [id number] e Date:9580-92-44Xlsq Name:[place] [id number]: SIMRAN MARTINEZOB: [id number] [place] [address]Tel: (HP) (WP) [facility] 11/21/2024 SIMRAN MARTINEZOB: [place] [address]Gqa: (HP) Primary Insurance:AETNA INSCOPolicy Number: [id number] e Date:[id number] Name:[place] [id number]: SIMRAN MARTINEZOB: [id number] [place] [address]Hch: (HP) (WP) [facility] 09/28/2024 SIMRAN MARTINEZOB: [place] [address]Ayf: (HP) Primary Insurance:AETNA INSCOPolicy Number: [id number] e Date:2585-63-41Yprv Name:[place] [id number]: SIMRAN MARTINEZOB: [id number] [place] [address]Exh: (HP) (WP) [facility] 09/12/2024 SIMRAN Donita MARTINEZOB: [place] [address]Ysx: (HP) Primary Insurance:[facility] Hospitaly Number: [id number] e Date:[id number] Name:LOLY MCGILL [id number] LINDA [place] [id number]: SIMRAN Donita MARTINEZOB: [id number] [place] [address]Ibx: (HP) (WP) [facility]
[2025-08-29 15:38] LABS: Hematocrit 42.3 % (37-47); Hemoglobin 13.9 g/dL (12.0-15.0); Mean Corp Hgb Conc 32.9 g/dL (32-36); Mean Corpuscular Volume 92.0 fL (81-99); Mean Platelet Vol. 10.7 fl (6.2-12.0); Platelet Count 195 K/mm3 (150-450); RBC Distribution Width CV 13.1 % (11.6-14.6); RBC Distribution Width SD 43.7 fl (35.1-43.9); Red Blood Count 4.60 M/mm3 (4.2-5.4); White Blood Count 11.6 K/mm3 (4.4-11.0)
[2025-09-02 14:08] LABS: Folate, Hemolysate Test 316.0 ng/mL (Not Estab.); Folate, RBC (Hct) Test 42.0 % (34.0-46.6); Folates, RBC Test 752 ng/mL (>498); VITAMIN B6 16.4 ug/L (3.4-65.2); Vitamin B1, Thiamine 99.7 nmol/L (66.5-200.0)
== END 2025-08-29 23:59 | disposition home or self-care (01) ==
LOC: MTLAB 11:16
PROVIDERS: PCP Internal Medicine; Referring Provider Psychiatry & Neurology Neurology; Visit Provider Psychiatry & Neurology Neurology
DX: E11.9 Type 2 diabetes mellitus without complications (principal); F03.90 Unspecified dementia, unspecified severity, without behavioral disturbance, psychotic disturbance, mood disturbance, and anxiety
CPT/HCPCS: 36415; 82747; 84207; 84425; 84443; 85014; 85027

== ENCOUNTER → 2025-10-24 | Outpatient (CLI) | payer MEDICARE, SELFPAY ==
[2025-10-24 16:41] LABS: Hematocrit 39.7 % (37-47); Hemoglobin 13.0 g/dL (12.0-15.0); Immature Granulocytes Count 0.050 X10^3/uL (0.0-0.0); Mean Corp Hgb Conc 32.7 g/dL (32-36); Mean Corpuscular Volume 93.2 fL (81-99); Mean Platelet Vol. 10.5 fl (6.2-12.0); NRBC Flagged by Analyzer 0 % (0-5); Platelet Count 204 K/mm3 (150-450); RBC Distribution Width CV 14.6 % (11.6-14.6); RBC Distribution Width SD 49.3 fl (35.1-43.9); Red Blood Count 4.26 M/mm3 (4.2-5.4); White Blood Count 10.5 K/mm3 (4.4-11.0)
[2025-10-24 17:01] LABS: AST(SGOT) 16 U/L (<=31); Alanine Aminotransfer ALT/SGPT 17 U/L (<=34); Albumin, Serum 4.3 g/dL (3.4-4.8); Alkaline Phosphatase 99 U/L (35-104); Anion Gap 14 (5-15); BUN 21 mg/dL (4-19); BUN/Creat Ratio 14.1 RATIO (10-20); Calcium,Total 9.2 mg/dL (7.6-11.0); Carbon Dioxide 17.9 mmol/L (21.0-32.0); Chloride 111 mmol/L (98-108); Globulin 2.4 g/dL (2.2-4.2); Glucose 130 mg/dL (70-99); Potassium 4.5 mmol/L (3.3-5.1)
[2025-10-24 17:03] LABS: Color, Urine Yellow (Yellow); Glucose, Dipstick Normal (Normal); Ketone-Dipstick Negative (Negative); Leukocyte Esterase-Dipstick 500 /ul (Negative); Nitrite-Dipstick Negative (Negative); Occult Blood-Urine 150 /ul (Negative); Protein-Dipstick 100 mg/dl (Negative); Specific Gravity, Urine 1.005 (1.002-1.030); Urine Bilirubin Dipstick Negative (Negative)
[2025-10-24 17:19] LABS: Creatinine, Urine (random) 85.20 mg/dL (28.00-217.00); Microalbumin,Random Urine 202.0 mg/L (<20 mg/L)
[2025-10-24 17:43] LABS: Squamous Epithelial Cells - UA 10-25 SEEN /hpf (5-10)
[2025-10-24 17:44] LABS: Mucous, Urine 1+ /hpf (<or=2+); Red Blood Cells-Urine 5-10 SEEN /hpf (0-5)
== END | disposition home or self-care (01) ==
LOC: LABSPEC 13:14
PROVIDERS: PCP Internal Medicine; Referring Provider Internal Medicine; Visit Provider Internal Medicine
DX: I10 Essential (primary) hypertension (principal); E11.69 Type 2 diabetes mellitus with other specified complication
CPT/HCPCS: 80053; 81001; 82043; 82570; 85025; 87077; 87086; 87088; 87186

== ENCOUNTER → 2025-11-20 | Outpatient (CLI) | payer MEDICARE, SELFPAY ==
[2025-11-20 15:19] LABS: Hematocrit 38.6 % (37-47); Hemoglobin 12.1 g/dL (12.0-15.0); Immature Granulocytes Count 0.040 X10^3/uL (0.0-0.0); Mean Corp Hgb Conc 31.3 g/dL (32-36); Mean Corpuscular Volume 95.3 fL (81-99); Mean Platelet Vol. 10.4 fl (6.2-12.0); NRBC Flagged by Analyzer 0 % (0-5); Platelet Count 178 K/mm3 (150-450); RBC Distribution Width CV 14.7 % (11.6-14.6); RBC Distribution Width SD 51.3 fl (35.1-43.9); Red Blood Count 4.05 M/mm3 (4.2-5.4); White Blood Count 8.9 K/mm3 (4.4-11.0)
[2025-11-20 15:59] LABS: Free T3 2.5 pg/mL (2.18-3.98)
[2025-11-20 16:19] LABS: AST(SGOT) 17 U/L (<=31); Alanine Aminotransfer ALT/SGPT 14 U/L (<=34); Albumin, Serum 4.5 g/dL (3.4-4.8); Alkaline Phosphatase 89 U/L (35-104); Anion Gap 16 (7-18); BUN 17 mg/dL (4-19); BUN/Creat Ratio 13.3 RATIO (10-20); Calcium,Total 9.5 mg/dL (7.6-11.0); Carbon Dioxide 19.4 mmol/L (20.0-29.0); Chloride 111 mmol/L (96-106); Globulin 2.6 g/dL (2.2-4.2); Glucose 127 mg/dL (70-99); Potassium 4.6 mmol/L (3.5-5.1)
== END | disposition home or self-care (01) ==
LOC: MTLAB 12:34
PROVIDERS: Nurse Practitioner Family; PCP Internal Medicine; Referring Provider Psychiatry & Neurology Neurology; Visit Provider Psychiatry & Neurology Neurology
DX: Z85.3 Personal history of malignant neoplasm of breast (principal); E06.3 Autoimmune thyroiditis
CPT/HCPCS: 36415; 80053; 84439; 84443; 84481; 85025